=== PATIENT | male | born 1965 ===

== ENCOUNTER 2024-11-25 13:28 | Outpatient (AMB) | payer BC, SELFPAY ==
--- OUTSIDE RECORDS SUMMARY | 2024-11-25 14:47 | XMS_ITS | Clinical Summary ---
Author Organization [address] [place] [address] [place] [phone] Phone Care Team Providers Care Boat Joiner Name Role Phone Nabil Blanco MD Primary Care Provider [phone] Allergies Active Allergy Reactions Criticality Noted Date Comments Ragweed 06/08/2006 Medications multivit-min/fe rrous fumarate (MULTI VITAMIN ORAL) Take 1 Tablet by mouth daily. Active UNABLE TO FIND ALLERGY MONTHLY INJECTION, HISTORIC None Entered Active metoprolol succinate (TOPROL-XL) 50 mg 24 hr tablet Take 1 tablet (50 mg total) by mouth 1 (one) time each day. Do not crush or chew. 90 each 1 08/27/2024 Active Active Problems Problem Noted Date Diagnosed Date Class 3 severe obesity due t o excess calories with serious comorbidity and body mass index (BMI) of 40.0 to 44.9 in adult (CMS/[facility] V24, CMS/[facility] V28) 05/23/2024 VT (ventricular tachycardia) (CMS/[facility] V24, [facility] V28) 05/09/2023 Overview (02/19/2024): Last Assessment & Plan: The patient was noted to have multiple episodes of brief NSVT since January 2023 with the longest duration of 24 beats. He continues to remain asymptomatic. He denies any episodes of chest pain. At this point, we discussed arranging for him to undergo an exercise nuclear stress test to rule out ischemia as a cause. I will also have him complete a CMP and magnesium level to assess his electrolytes as a cause. We also discussed that I recommended he start metoprolol 25 mg orally daily. We discussed side effects. The patient also has a history of severe obstructive sleep apnea with sleep study completed July 2022. The patient has been attempting to contact sleep medicine of [facility] multiple times and unable to reach someone to assist him to arrange CPAP and titration study. He will reach out to sleep medicine services of [facility] to ensure the patient can obtain CPAP as soon as possible. JARED (obstructive sleep apnea) 08/18/2022 Overview (02/19/2024): 08/23 severe Aortic aneurysm, thoracic (CMS/[facility] V24) 03/07/20 Overview (10/22/2024): 04/25 4.1 02/23--4.2 cm 10/25 (cardiology) stable Aortic stenosis 03/07/2022 Overview (02/19/2024): Last Assessment & Plan: The patient was found to have a mild aortic valve stenosis on his echocardiogram done in January 2022. We will continue periodic echocardiographic monitoring. Snoring 03/07/2022 Overview (02/19/2024): Last Assessment & Plan: The patient has a history of significant nighttime snoring. Home-based sleep study did not show any sleep apnea. The report stated that if the clinical suspicion for sleep apnea remains high, to consider a facility based sleep study. The patient does have a strong clinical suspicion of underlying sleep apnea and therefore further testing is indicated. We will schedule the patient for a facility based sleep study. Obesity (BMI 35.0-39.9 without comorbidity) 07/2017 Overview (02/19/2024): Last Assessment & Plan: That the patient has significant obesity. His BMI was noted to be 39.98. The patient was counseled with regards to the importance of maintaining adequate diet in order to try to treat his obesity. If the patient does not lose weight with lifestyle modifications, then he should be considered for referral for bariatric surgery in the future. For now, I will order a lipid panel, CMP, and lipoprotein A level in order to determine if the patient would benefit from statin therapy Erectile dysfunction 05/11/2017 Allergic rhinitis 06/09/2006 Overview (02/19/2024): Allergy shots Colon polyp 06/09/2006 Overview (02/19/2024): Family hx colon ca (F 46) Colonoscopy neg --5yrs 09/07--colonoscopy neg--5yrs 09/15 Colonoscopy polyp---repeat 5 yrs 12/22. Large sigmoid polyp. Repeat 2 yrs. Nonspecific elevation of lev els of transaminase or lactic acid dehydrogenase (LDH) 06/09/2006 Overview (02/19/2024): 1999--Iron, ESR, hep screen, ceruloplasm normal--pt did not f/u 2006--normal spep, anti-sm ab, anti-microsomal. chol good--u/s shows fatty liver Last Assessment & Plan: The patient has been noted to have mildly elevated liver function test. On his laboratory test from 03/07/2022, his AST was 43 and his ALT was 80. On his follow-up laboratory test on 03/18/2022, his ALT was 81 and his AST was 40. Chart review indicates that the patient has a chronic history of mildly elevated AST and ALT levels. The patient was instructed to follow-up with his primary care physician to determine if any further testing (for example: liver ultrasound) might be needed. Encounters Date Type Department Care Team Description 11/18/2024 3:15 AM EDT Ancillary Procedure [facility] [address] [place] [address] 10/28/2024 Telephone [facility] [address] [facility] [address] [place] [address] Coeltte De Souza NP 10/16/2024 7:25 AM EDT Ancillary Procedure [facility] [address] [place] [address] 09/25/2024 7:00 AM EDT Ancillary Procedure [facility] [address] [place] [address] VT (ventricular tachycardia) ([facility] V24, [facility] V28); Ascending aorta dilation ([facility] V24) 09/23/2024 1:30 PM EDT Ancillary Procedure [facility] [address] [place] [address] from Last 3 Months Immunizations Name Administration Dates Next Due Influenza Quadravalent, MDCK , 0.5ml, preservative free (Flucelvax) 6mo and older 02/10/2023,01/03/2020,01/25/2019,2017 Influenza Quadrivalent, 0.5m l, preservative free (Fluarix; FluLaval; Fluzone) ages 6mo and older (Afluria) 3yo and older 03/24/2022,02/12/2021 Influenza trivalent, MDCK, 0 .5mL, preservative free (Flucelvax) 6mo and older 02/25/2024 Influenza trivalent, with preservative (Fluzone; Afluria) 6mo and older 04/20/2016,02/07/2012,12/19/2008 Tdap Tetanus diptheria acell ular pertussis (Boostrix; Adacel) 7yo and older 03/24/2022,04/20/2016,06/08/2006 Zoster recombinant (Shingrix ) 19yo and older 10/11/2021,04/18/2021 Surgical History Surgery Date Site/Laterality Comments COLONOSCOPY 09/07/06, [facility] PROCEDURE: [place] COLONOSCOPY STOMA DX INCLUDING COLLJ SPEC SPX; COMMENT: Normal: repeat in five years COLONOSCOPY 10/12/2014 PROCEDURE: [place] COLONOSCOPY STOMA W/RMVL JAMESON POLYP/OTH LES SNARE; COMMENT: normal; repeat in 5 yrs PACEMAKER IMPLANT PROCEDURE: HISTORICAL PACEMAKER VASECTOMY Medical History Medical History Date Comments Erectile dysfunction 05/11/2017 DX:Erectile dysfunction Allergic rhinitis 06/09/2006 DX:Allergic rh initis; COMMENT: Allergy shots Nonspecific elevation of lev els of transaminase or lactic acid dehydrogenase (LDH) 06/09/2006 DX:Nonspecific elevation of levels of transaminase or lactic acid dehydrogenase (LDH); COMMENT: 1999--Iron, ESR, hep screen, ceruloplasm normal--pt did not f/u 2006--normal spep, anti-sm ab, anti-microsomal. chol good--u/s shows fatty liver Colon polyp 06/09/2006 DX:Colon polyp; COMMENT: Family hx colon ca (F 46) Colonoscopy neg --5yrs 09/07--colonoscopy neg--5yrs 09/15 Colonoscopy polyp---repeat 5 yrs Pacemaker DX:Pacemaker; CO MMENT: av block Family History Medical History Relation Name Comments Coronary artery disease Brother 1 cabg No Known Problems Brother 2 Colon cancer Father 46, CAD 40's, D ied of CHD @ 75 Thyroid disease Mother No Known Problems Sister 1 No Known Problems Sister 2 No Known Problems Son Relation Name Status Comments Brother 1 Alive Brother 2 Alive Daughter Alive Father Mother Alive Sister 1 Alive Sister 2 Alive Son Alive Social History Tobacco Use Types Packs/Day Years Used Date Smoking Tobacco: Never Smokeless Tobacco: Never Alcohol Use Standard Drinks/Week Comments Yes 4 (1 standard drink = 0.6 oz pur e alcohol) beer/wine - 3 per week Housing Instability Answer Date Recorde d Are you worried that in the next 2 months you may not have stable housing? No 02/21/2024 Food Access & Nutrition Answer Date Rec orded Do you have access to a vari ety of food including fruits and vegetables? Yes 02/21/2024 Access to Healthcare Answer Date Record ed Within the last 3 months, ho w many times did you visit the emergency department for your medical care? 0 02/21/2024 Health Literacy Answer Date Recorded How often do you need to hav e someone help you when you read instructions, pamphlets, or other written material from your doctor or pharmacy? Never 02/21/2024 Caregiver: How often do you need to have someone help you when you read instructions, pamphlets, or other written material from your doctor or pharmacy? Not on file 02/21/2024 Financial Risk Answer Date Recorded How hard is it for you to pa y for the very basics like food, housing, medical care, and air conditioning / heating? Not very hard 02/21/2024 Transportation Answer Date Recorded Has the lack of transportati on kept you from meetings, work, or from getting things needed for daily living? No Has the lack of transportati on kept you from medical appointments or from getting medications? No 02/21/2024 Social Isolation Answer Date Recorded How often do you feel lonely or isolated from th ose around you? Never 02/21/2024 Food Risk Answer Date Recorded Within the past 12 months we worried whether our food would run out before we got money to buy more. Never true 02/21/2024 Within the past 12 months th e food we bought just didn't last and we didn't have money to get more. Never true 02/21/2024 Dependent Care Answer Date Recorded Do you need help finding or paying for care for your loved ones. For example, residential child care counselor or elderly care for an older adult? No 02/21/2024 Education Answer Date Recorded Do you think completing more education or training, like finishing a GED, going to college, or learning a trade, would be helpful for you? No 02/21/2024 Employment and Income Answer Date Recor ded During the last four weeks, have you been actively looking for work? No 02/21/2024 Living Situation Answer Date Recorded What is your living situation? 1 04/22/2023 Sex and Gender Information Value Date Recorded Sex Assigned at Male 02/16/2024 12:01 PM EST Legal Sex Male 1:48 AM EST Gender Identity Male 02/16/2024 12:01 PM EST Sexual Orientation Straight 02/16/2024 12 :01 PM EST Obstetrics History Last Filed Vital Signs Vital Sign Reading Time Taken Comments Blood Pressure 120/86 09/25/2024 7:07 AM EDT Pulse 73 07/15/2024 8:14 AM EDT Temperature 36.2 C (97.1 F) 02/28/2024 10:52 AM EST Respiratory Rate - - Oxygen Saturation 97% 07/15/2024 8:14 AM EDT Inhaled Oxygen Concentration - - Weight 147 kg (325 lb) 09/25/2024 7:07 AM EDT Height 185.4 cm (6' 1 ) 09/25/2024 7:07 AM EDT Body Mass Index 42.88 09/25/2024 7:07 AM EDT Plan of Treatment Upcoming Encounters Date Type Department Care Team (Late st Contact Info) Description 01/14/2025 11:20 AM EDT Office Visit [facility] [address] [place] [phone] Chucky Snow MD [address] [place] [address] [address] [place] [address] 05/08/2025 2:30 PM EST Ancillary Procedure [facility] [address] [place] [phone] Health Maintenance Due Date Last Done Comments Hepatitis B Vaccines (1 of 3 - 19+ 3-dose series) 1984 Pneumococcal Vaccine: 50+ Years (1 of 1 - PCV) 09/05/2015 HIV Screening 03/12/2022 Influenza Vaccine (#1) 2024 , 02/10/2023, 03/24/2022, Additional history exists Social Influencers of Health Screening 02/20/2025 02/21/2024 Colorectal Cancer Screening: Colonoscopy 08/07/2028 08/08/2023 Cholesterol Screening (Lipid Panel) 03/05/2029 03/05/2024, 02/13/2023 DTaP,Tdap,and Td Vaccines (4 - Td or Tdap) 03/24/2032 03/24/2022, 04/20/2016, 06/08/2006 RSV Immunization Adult Patients (1 - 1-dose 75+ series) 2040 Hepatitis C Screening Completed 08/11/1999 Zoster Vaccines Completed 10/11/2021, 04/18/2021 COVID-19 Vaccine Completed 02/25/2024, 06/2022, 12/08/2021, Additional history exists Depression Screening Completed 08/27/2024 HIB Vaccines Aged Out No longer eligi ble based on patient's age to complete this topic HPV Vaccines Aged Out No longer eligi ble based on patient's age to complete this topic Hepatitis A Vaccines Aged Out No long er eligible based on patient's age to complete this topic IPV Vaccines Aged Out No longer eligi ble based on patient's age to complete this topic MMR Vaccines Aged Out No longer eligi ble based on patient's age to complete this topic Meningococcal ACWY Vaccine Aged Out N o longer eligible based on patient's age to complete this topic Meningococcal B Vaccine Aged Out No l onger eligible based on patient's age to complete this topic RSV Immunization Patients Under 20 months Aged Out No longer eligible based on patient's age to complete this topic Varicella Vaccines Aged Out No longer eligible based on patient's age to complete this topic Medical Devices Implanted Type Area Purification Supervisor Device Identifier Shelf Expiration Date Model / Serial / Lot Medt-Card Dejah Xt Dr Renee [id number] Implanted: (Quantity not on file) Cardiac Pacemaker [employer] - CARDIAC RHYTH-CRDM DEJAH XT DR RENEE [id number] / [id number] / Medt-Card Dejah Xt Dr Renee [id number] Implanted: (Quantity not on file) Cardiac Pacemaker [employer] - CARDIAC RHYTH-CRDM DEJAH XT DR RENEE / [id number] / Procedures Procedure Name Priority Date/Time Associated Diagnosis Comments CARDIAC DEVICE CHECK- REMOTE- MURJ Routine 11/18/2024 3:12 AM EDT CARDIAC DEVICE CHECK- REMOTE- MURJ Routine 10/16/2024 7:20 AM EDT TRANSTHORACIC ECHOCARDIOGRAM (TTE) COMPLETE W/ CONTRAST Routine 09/25/2024 7:56 AM EDT VT (ventricular tachycardia) (CMS/H[facility] V24, CMS/[facility] V28) Ascending aorta dilation (CMS/[facility] V24) CARDIAC DEVICE CHECK- REMOTE- MURJ Routine 09/23/2024 1:25 PM EDT LIPID PANEL WITH REFLEX TO DIRECT LDL Routine 03/05/2024 8:58 AM EST Screening, lipid HM COLONOSCOPY Routine 08/08/2023 HEPATITIS C SCREENING Routine 08/11/1999 from Last 3 Months or Most Recently Relevant to Health Maintenance Results * Cardiac device check - Remote- MURJ (11/18/2024 3:12 AM EDT) Only the most recent of3 resultswithin the time period is included. Date Time Interrogation Session [id number] CV DEVICE CHECK Type Interrogation Session Remote CV DEVICE CHECK Implantable Pulse Generator Purification Supervisor MDT CV DEVICE CHECK Implantable Pulse Generator Type IPG CV DEVICE CHECK Implantable Pulse Generator Model Dejah XT DR MRI [id number] CV DEVICE CHECK Implantable Pulse Generator Serial Number [id number] CV DEVICE CHECK Implantable Pulse Generator Implant Date 20220401 CV DEVICE CHECK Battery Remaining Longevity 113.0 CV DEVICE CHECK Battery Voltage 3.010 CV D EVICE CHECK Battery RIGHT OF WAY MAN Trigger 2.625 CV DEVICE CHECK Battery Status Middle of Service CV DEVICE CHECK Rogelio Statistic RA Percent Paced 40.99 CV DEVICE CHECK Rogelio Statistic RV Percent Paced 99.99 CV DEVICE CHECK Atrial Tachy Statistic AT/AF [place] Percent 0.00 CV DEVICE CHECK Lead Channel Sensing Intrinsic Amplitude 3.375 CV DEVICE CHECK Lead Channel Setting Sensing Sensitivity 0.45 CV DEVICE CHECK Lead Channel Impedance Value 399 CV DEVICE CHECK Lead Channel Pacing Threshold Amplitude 0.625 CV DEVICE CHECK Lead Channel Pacing Threshold Pulse Width 0.4 CV DEVICE CHECK Lead Channel RA Pacing Threshold Date 2024-11-08 CV DEVICE CHECK Lead Channel Setting Pacing Amplitude 1.500 CV DEVICE CHECK Lead Channel Setting Pacing Pulse Width 0.4 CV DEVICE CHECK Lead Channel Sensing Intrinsic Amplitude 31.625 CV DEVICE CHECK Lead Channel Setting Sensing Sensitivity 2.00 CV DEVICE CHECK Lead Channel Impedance Value 418 CV DEVICE CHECK Lead Channel Pacing Threshold Amplitude 0.500 CV DEVICE CHECK Lead Channel Pacing Threshold Pulse Width 0.4 CV DEVICE CHECK Lead Channel RV Pacing Threshold Date 2024-11-08 CV DEVICE CHECK Lead Channel Setting Pacing Amplitude 2.000 CV DEVICE CHECK Lead Channel Setting Pacing Pulse Width 0.4 CV DEVICE CHECK Rogelio Setting Mode (NBG Code) DDDR CV DEVICE CHECK Rogelio Setting Lower Rate Limit 60 CV DEVICE CHECK Rogelio Setting AT Mode Switch Rate 200 CV DEVICE CHECK Rogelio Setting Maximum Tracking Rate 145 CV DEVICE CHECK Rogelio Setting Maximum Sensor Rate 130 CV DEVICE CHECK Rogelio Setting PAV Delay 180 CV DEVICE CHECK Rogelio Setting XOCHITL Delay 150 CV DEVICE CHECK Zone Setting Type Category AT/AF CV DEVICE CHECK Rate 200 CV DEVICE CHECK Therapies Some Rx Off CV DEVIC E CHECK Zone Setting Status Monitor CV DEVICE CHECK Zone ID 2 CV DEVICE CHECK Zone Setting Type Category VT CV DEVICE CHECK Rate 171 CV DEVICE CHECK Zone Setting Status ENABLED CV DEVICE CHECK Zone ID 6 CV DEVICE CHECK Date of Service 2024-11-09 CV DEVICE CHECK Anatomical Region Laterality Modality Device Interroga tion 11/08/2024 7:56 PM EDT Impressions 11/17/2024 7:42 PM EDT Normal Remote: No Events * Normal Device Function * Alerts or events: None * Battery: OK, 9.42 yrs * Sensing, impedance and thresholds reviewed * Programmed parameters reviewed * Presenting rhythm reviewed * Heart Rate Histograms reviewed * No significant changes noted Narrative Procedure Note Beny Robb MD - 11/18/2024 IMPRESSION: Normal Remote: No Events * Normal Device Function * Alerts or events: None * Battery: OK, 9.42 yrs * Sensing, impedance and thresholds reviewed * Programmed parameters reviewed * Presenting rhythm reviewed * Heart Rate Histograms reviewed * No significant changes noted Beny Robb MD CV IMPLANTABLE CARDIAC DEV ICE PROCEDURES Final Result * (ABNORMAL) TRANSTHORACIC ECHOCARDIOGRAM (TTE) COMPLETE W/ CONTRAST (09/25/2024 7:56 AM EDT) Left Atrium Minor [place] 5.9 cm CV PACS Left Atrium Major [place] 6.0 cm CV PACS LA Area Sys (A2C) 22 cm2 CV PACS LA Area Sys (A4C) 22 cm2 CV PACS LA Volume (BP) 66 mL CV PACS RA Area 18.1 cm2 CV PACS RA 2D Volume 51 mL CV PACS Aortic Sinus Valsalva 3.7 cm CV PACS Ascending Aorta 4.2 cm CV PACS IVSD 1.2(A) 0.6 - 1.0 cm CV PACS LVIDD 4.8 4.2 - 5.8 cm CV PACS LVIDS 3.5 2.5 - 4.0 cm CV PACS LVOT Diameter 2.2 cm CV PACS LVPWD 1.2(A) 0.6 - 1.0 cm CV PACS MV E' Tissue Velocity Lateral 9 cm/s CV PACS MV E' Tissue Velocity Septal 8 cm/s CV PACS LVOT Area 3.8 cm2 CV PACS MV Deceleration [place] 3.1 m/s2 CV PACS E Wave Deceleration Time 201 119 - 242 ms CV PACS MV PHT 58 ms CV PACS MV Peak A Sylvester 0.80 m/s CV PACS MV Peak E Syl[place] 0.60 m/s CV PACS MV Area PHT 3.7 cm2 CV PACS RV Diastolic Basal Dimension 4.5(A) 2.5 - 4.1 cm CV PACS RV S' 11 cm/s CV PACS TAPSE 21 mm CV PACS TR Peak Velocity 2.40 m/s CV PACS TR Peak Gradient 22 mmHg CV PACS E/E' Ratio Septal 8 CV PACS E/E' Ratio Averaged 7 CV PACS Relative Wall Thickness ratio 0.50(A) 0.24 - 0.42 CV PACS FS 27 % CV PACS LV Mass 2D 224(A) 96 - 200 g CV PACS Ascending Aorta Index 1.59 cm/m2 CV PACS RA 2D Volume Index 19 18 - 32 mL/m2 CV PACS LVIDD Index 1.82 cm/m2 CV PACS LVIDS Index 1.33 cm/m2 CV PACS E/A Ratio 0.8 0.8 - 2.0 CV PACS E/E' Ratio Lateral 7 CV PACS LA Volume Index (BP) 23 mL/m2 CV PACS LV Mass Index 2D 83 50 - 102 g/m2 CV PACS BSA 2.76 m2 CV PACS Right Ventricular Peak Systolic Pressure 26 mmHg CV PACS Est. RA Pressure 3 mmHg CV PACS RV Free Wall Peak S' 11 cm/s CV PACS RA Major [place] 5.1 cm CV PACS RA Major [place] Index 1.9(A) 2.1 - 2.7 cm/m2 CV PACS Anatomical Region Laterality Modality Ultrasound Narrative 10/21/2024 9:53 AM EDT Left ventricle cavity size is normal. There is mild hypertrophy. Systolic function is mildly decreased with an ejection fraction of ~50%. Mild global LV hypokinesis is present. There is Grade I (mild) diastolic dysfunction. Right ventricle is enlarged. Right ventricular systolic function is normal. The atria are normal in size. No hemodynamically significant valve disease. The ascending aorta is dilated (4.2 cm). Compared to 2022, the aorta appears similar in size. LV function is slightly less vigorous. Left Ventricle Left ventricle cavity size is normal. There is mild hypertrophy. Systolic function is mildly decreased with an ejection fraction of ~50%. Mild global LV hypokinesis is present. There is Grade I (mild) diastolic dysfunction. Right Ventricle Right ventricle cavity is dilated. Systolic function is normal. Left Atrium Left atrium cavity size is normal. Right Atrium Right atrium cavity is normal. IVC/SVC Inferior vena cava structure is normal. RA pressures is estimated to be 3 mmHg (IVC diameter <21 mm and decreases >50% during inspiration). Mitral Valve The leaflets are mildly thickened. There is mild regurgitation. There is no evidence of mitral valve stenosis. Tricuspid Valve The leaflets exhibit normal excursion. There is trace regurgitation. The RVSP is estimated at 26 mmHg. Aortic Valve The aortic valve is trileaflet. There is trace regurgitation. There is no evidence of aortic valve stenosis. Pulmonic Valve Visualized portions of the pulmonic valve appear normal. There is no pulmonic valve regurgitation. Ascending Aorta The Sinus of Valsalva is normal. The ascending aorta is (4.2 cm). Pericardium There is no pericardial effusion. Study Details Overall the study quality was technically difficult. Definity contrast was given to enhance imaging. Study was difficult due to: poor endocardial visualization. us Colette De Souza NP CV ECHO PROCEDURES Final Resul t * Lipid panel with reflex to direct LDL (03/05/2024 8:58 AM EST) Cholesterol 150 0 - 200 mg/dL LAB CHEMISTRY METHOD 03/05/2024 12:42 PM [facility] Triglycerides 98 0 - 150 mg/dL LAB CHEMISTRY METHOD 03/05/2024 12:42 PM EST [facility] HDL 54 >=40 mg/dL LAB CHEMISTRY METHOD 03/05/2024 12:42 PM [facility] LDL Calculated 76 0 - 100 mg/dL LAB CHEMISTRY METHOD 03/05/2024 12:42 PM [facility] VLDL Cholesterol Santiago 19.6 mg/dL LAB CHEMISTRY METHOD 03/05/2024 12:42 PM [facility] Non HDL Chol. (LDL+VLDL) 96 <145 mg/dL LAB CHEMISTRY METHOD 03/05/2024 12:42 PM [facility] Chol/HDL Ratio 2.8 0.0 - 4.4 LAB CHEMISTRY METHOD 03/05/2024 12:42 PM EST [facility] Blood Venous blood specimen / Unknown Venipuncture / Unknown 03/05/2024 8:58 AM EST 03/05/2024 8:58 AM EST [facility] LAB BLOOD ORDERABLES Final Res ult [facility] [address] [place] [address], [place] [phone] * Colonoscopy (08/08/2023) Colonoscopy Abstracted, no interpretation Anatomical Region Laterality Modality Other Historical Provider HEALTH MAINTENANCE Final Result * Hepatitis C Screening (08/11/1999) Hepatitis C Screening Abstracted Historical Provider HEALTH MAINTENANCE Final Result from Last 3 Months or Most Recently Relevant to Health Maintenance Insurance [facility] Care Teams Boat Joiner Relationship Specialty Start Date End Date Nabil Blanco MD [address] [place] [address] PCP - General 07/05/99
== END 2024-11-26 11:58 | disposition home or self-care (01) ==
LOC: HO.HMGAL 13:28
PROVIDERS: Visit Provider Registered Nurse Emergency
DX: J30.89 Other allergic rhinitis (principal)
CPT/HCPCS: 95117; 95165

== ENCOUNTER 2024-12-09 10:00 | Outpatient (AMB) | payer BC, SELFPAY ==
--- OUTSIDE RECORDS SUMMARY | 2024-12-09 11:45 | XMS_ITS | Clinical Summary ---
Author Organization [address] [place] [address] [place] [phone] Phone Care Team Providers Care Chief Quality Officer Name Role Phone Nabil Blanco MD Primary Care Provider [phone] Allergies Active Allergy Reactions Criticality Noted Date [...] (BMI) of 40.0 to 44.9 in adult (CMS/[facility] V24, CMS/[facility] V28) 05/23/2024 VT (ventricular tachycardia) (CMS/[facility] V24, CMS/[facility] V28) 05/09/2023 Overview (02/19/2024): [...] been attempting to contact sleep medicine of [facility] multiple times and unable to reach someone to assist him to arrange CPAP and titration study. He will reach out to sleep medicine services of [facility] to ensure the patient can obtain CPAP as soon as possible. JARED (obstructive sleep apnea) 08/18/2022 Overview (02/19/2024): 08/23 severe Aortic aneurysm, thoracic (CMS/[facility] V24) 03/07/20 Overview (10/22/2024): 04/25 4.1 02/23--4.2 [...] Description 11/18/2024 3:15 AM EDT Ancillary Procedure [facility] - [address] [place] [address] 10/28/2024 Telephone [facility] - [facility] [address] [facility] [address] [place] [address] Colette De Souza NP 10/16/2024 7:25 AM EDT Ancillary Procedure [facility] - [address] [place] [address] 09/25/2024 7:00 AM EDT Ancillary Procedure [facility] - [address] [place] [address] VT (ventricular tachycardia) ([facility] V24, [facility] V28); Ascending aorta dilation ([facility] V24) 09/23/2024 1:30 PM EDT Ancillary Procedure [facility] - [address] [place] [address] from Last 3 Months Immunizations [...] History Surgery Date Site/Laterality Comments COLONOSCOPY 09/07/06, [facility] PROCEDURE: [place] COLONOSCOPY STOMA DX INCLUDING COLLJ SPEC SPX; COMMENT: Normal: repeat in five years COLONOSCOPY 10/12/2014 PROCEDURE: [place] COLONOSCOPY STOMA W/RMVL JAMESON POLYP/OTH LES SNARE; [...] care for your loved ones. For example, child development director or elderly care for an older adult? [...] Description 01/14/2025 11:20 AM EDT Office Visit [facility] [address] [place] [address] Chucky Snow MD [address] [place] [address] [address] [place] [phone] 05/08/2025 2:30 PM EST Ancillary Procedure [facility] - [address] [place] [phone] Health Maintenance Due Date Last Done Comments [...] this topic Medical Devices Implanted Type Area Adjunct Faculty Instructor Device Identifier Shelf Expiration Date Model / Serial / Lot Medt-Card Mcfall Xt Dr Renee [id number] Implanted: (Quantity not on file) Cardiac Pacemaker [employer] - CARDIAC RHYTH-CRDM DEJAH XT DR RENEE [id number] / [id number] / Medt-Card Mcfall Xt Dr Renee [id number] Implanted: (Quantity not on file) Cardiac Pacemaker [employer] - CARDIAC RHYTH-CRDM DEJAH XT DR RENEE / [id number] / Procedures Procedure Name Priority Date/Time Associated [...] period is included. Date Time Interrogation Session [id number] CV DEVICE CHECK Type Interrogation Session Remote CV DEVICE CHECK Implantable Pulse Generator Adjunct Faculty Instructor MDT CV DEVICE CHECK Implantable Pulse Generator Type IPG CV DEVICE CHECK Implantable Pulse Generator Model Mcfall XT DR MRI [id number] CV DEVICE CHECK Implantable Pulse Generator Serial Number [id number] CV DEVICE CHECK Implantable Pulse Generator Implant Date 20220401 CV DEVICE CHECK Battery Remaining Longevity 113.0 CV DEVICE CHECK Battery Voltage 3.010 CV D EVICE CHECK Battery INJECTION MOLD TOOLING TECHNICIAN Trigger 2.625 CV DEVICE CHECK Battery Status Middle of Service CV DEVICE CHECK Rogelio Statistic RA Percent Paced 40.99 CV DEVICE CHECK Rogelio Statistic RV Percent Paced 99.99 CV DEVICE CHECK Atrial Tachy Statistic AT/AF [place] Percent 0.00 CV DEVICE CHECK Lead Channel [...] reviewed * No significant changes noted Beny oRbb MD CV IMPLANTABLE CARDIAC DEV ICE PROCEDURES Final Result * (ABNORMAL) TRANSTHORACIC ECHOCARDIOGRAM (TTE) COMPLETE W/ CONTRAST (09/25/2024 7:56 AM EDT) Left Atrium Minor [place] 5.9 cm CV PACS Left Atrium Major [place] 6.0 cm CV PACS LA Area Sys [...] Area 3.8 cm2 CV PACS MV Deceleration [place] 3.1 m/s2 CV PACS E Wave Deceleration [...] S' 11 cm/s CV PACS RA Major [place] 5.1 cm CV PACS RA Major [place] Index 1.9(A) 2.1 - 2.7 cm/m2 CV [...] mg/dL LAB CHEMISTRY METHOD 03/05/2024 12:42 PM [facility] Triglycerides 98 0 - 150 mg/dL LAB CHEMISTRY METHOD 03/05/2024 12:42 PM [facility] HDL 54 >=40 mg/dL LAB CHEMISTRY METHOD 03/05/2024 12:42 PM [facility] LDL Calculated 76 0 - 100 mg/dL LAB CHEMISTRY METHOD 03/05/2024 12:42 PM [facility] VLDL Cholesterol Santiago 19.6 mg/dL LAB CHEMISTRY METHOD 03/05/2024 12:42 PM [facility] Non HDL Chol. (LDL+VLDL) 96 <145 mg/dL LAB CHEMISTRY METHOD 03/05/2024 12:42 PM [facility] Chol/HDL Ratio 2.8 0.0 - 4.4 LAB CHEMISTRY METHOD 03/05/2024 12:42 PM EST [facility] Blood Venous blood specimen / Unknown Venipuncture / Unknown 03/05/2024 8:58 AM EST 03/05/2024 8:58 AM EST Rodo AGUILAR LAB BLOOD ORDERABLES Final Res ult [facility] [address] [place] [address], * Colonoscopy (08/08/2023) Colonoscopy Abstracted, no interpretation Anatomical Region Laterality Modality Other Historical Provider HEALTH MAINTENANCE Final Result * Hepatitis C Screening (08/11/1999) Pathologist [facility] Hepatitis C Screening Abstracted Historical Provider HEALTH MAINTENANCE Final Result from Last 3 Months or Most Recently Relevant to Health Maintenance Insurance [facility] ([facility]) Care Teams Chief Quality Officer Relationship Specialty Start Date End Date Nabil Blanco MD [address] [place], [place] PCP - General 07/05/99
== END 2024-12-09 11:24 | disposition home or self-care (01) ==
LOC: HO.HMGAL 10:00
PROVIDERS: Visit Provider Registered Nurse Emergency
DX: J30.89 Other allergic rhinitis (principal)
CPT/HCPCS: 95117; 95165

== ENCOUNTER 2024-12-25 14:01 | Outpatient (AMB) | payer OTHER, SELFPAY ==
--- OUTSIDE RECORDS SUMMARY | 2024-12-25 16:30 | XMS_ITS | Encounter Summary ---
Author Organization [facility] [place] [address] Care Team Providers Care Field Rep Name Role Phone Nabil Blanco MD Primary Care Provider [phone] Reason for Visit * Reason Onset Date Comments Hospital Follow-up 12/24/2024 Encounter Details Date Type Department Care Team ([facility] Contact Info) Description 12/24/2024 Telephone Adult Medicine [facility] [address] [place] [phone] Nabil Blanco MD [address] [place] [address] Social History Tobacco Use Types Packs/Day Years [...] for your loved ones. For example, child life therapist or elderly care for an older adult? [...] Orientation Straight 02/16/2024 12 :01 PM EST documented as of this encounter Progress Notes * Rosemarie Moralez - 12/24/2024 10:33 AM EDT Hospital/ER follow up appointment needed [facility] Was this only an ER visit or was the patient admitted to the hospital? Admitted to the hospital/kept overnight Date of visit if ER visit only: n/a If patient was admitted what was the date of discharge? 12/23/24 Reason/diagnosis for visit or stay: vertigo and dizziness When was the patient told to follow up? Within 1 week Was visit or stay related to an injury? If yes, what was the date of injury (DOI)? No If yes, was the injury due to: Not 3rd green party related documented in this encounter Plan of Treatment Upcoming Encounters Date Type Department Care Team (Late st Contact Info) Description 01/02/2025 11:00 AM EDT Office Visit Adult Medicine - [place] [address] [place] [address] Nabil Blanco MD [address] [place] [address] 01/14/2025 11:20 AM EDT Office Visit [facility] Associates [facility] [address] [place] [phone] Chucky Snow MD [address] [place] [address] [address] [place] [address] 05/08/2025 2:30 PM EST Ancillary Procedure [facility] [address] [facility] [address] [place] [address] documented as of this encounter Visit Diagnoses Not on filedocumented in this encounter Additional Health Concerns Assessment Noted Time PHQ-9 Depression Total Score: 0 08/28/19 10:16 AM EDT documented as of this encounter Care Teams Field Rep Relationship Specialty Start Date End Date Nabil Blanco MD [address] [place] [address] PCP - General 07/05/99 documented as of this encounter
--- OUTSIDE RECORDS SUMMARY | 2024-12-25 16:30 | XMS_ITS | Encounter Summary ---
Author Organization [facility] [place] [address] Care Team Providers Care Marine Mechanic Name Role Phone Nabil Blanco MD Primary Care Provider [phone] Encounter Details Date Type Department Care Team (Late st Contact Info) Description 12/25/2024 Telephone Adult Medicine [place] [address] [place] [phone] Alec Marrero, RN Social History Tobacco Use Types Packs/Day Years [...] for your loved ones. For example, child and family services specialist or elderly care for an older adult? [...] as of this encounter Progress Notes * Alec Marrero RN - 12/25/2024 2:54 PM EDT Appointment scheduled * Alec Marrero RN - 12/25/2024 2:52 PM EDT LUIS CARLOS Devi call completed with patient. Discharged from [facility] on 12/23/2024 for Vertigo Can you please call to schedule a TCM appointment documented in this encounter Plan of Treatment Upcoming Encounters Date Type Department Care Team (Late st Contact Info) Description 01/02/2025 11:00 AM EDT Office Visit Adult Medicine - [place] [address] [place] [address] Nabil Blanco MD [address] [place] [address] 01/14/2025 11:20 AM EDT Office Visit [facility]iology [facility] [address] [place] [address] Chucky Snow MD [address] [place] [address] [address] [place] [phone] 05/08/2025 2:30 PM EST Ancillary Procedure [facility] [address] [place] [phone] documented as of this encounter Visit Diagnoses Not on filedocumented in this encounter Additional Health Concerns Assessment Noted Time PHQ-9 Depression Total Score: 0 08/28/19 25 10:16 AM EDT documented as of this encounter Care Teams Marine Mechanic Relationship Specialty Start Date End Date Nabil Blanco MD [address] [place] [address] PCP - General 07/05/99 documented as of this encounter
--- OUTSIDE RECORDS SUMMARY | 2024-12-25 16:30 | XMS_ITS | Clinical Summary ---
Author Organization [address] [place] [address] [place] [address] Phone Care Team Providers Care Well Digger Name Role Phone Nabil Blanco MD Primary Care Provider [phone] Allergies Active Allergy Reactions Criticality Noted Date [...] (BMI) of 40.0 to 44.9 in adult (CMS/[facility] V24, CMS/[facility] V28) 05/23/2024 VT (ventricular tachycardia) (CMS/[facility] V24, CMS/H [facility] V28) 05/09/2023 [...] been attempting to contact sleep medicine of [facility] multiple times and unable to reach someone to assist him to arrange CPAP and titration study. He will reach out to sleep medicine services of [facility] to ensure the patient can obtain CPAP as soon as possible. JARED (obstructive sleep apnea) 08/18/2022 Overview (02/19/2024): 08/23 severe Aortic aneurysm, thoracic (CMS/[facility] V24) 03/07/20 Overview (10/22/2024): 04/25 [...] Encounters Date Type Department Care Team Description 12/25/2024 Telephone Adult Medicine - [place] [address] [place] [address] Alec Marrero RN 12/24/2024 Telephone Adult Medicine - [place] [address] [place] [address] Nabil Blanco MD 12/20/2024 Telephone [facility] Cardiology [address] [place] [phone] Chucky Snow MD 12/12/2024 5:10 AM EDT Ancillary Procedure [facility] - [address] [place] [address] 11/18/2024 3:15 AM EDT Ancillary Procedure [facility] Cardiology [facility] - [address] [place] [address] 10/28/2024 Telephone [facility] Cardiology [address] [place] [address] Colette De Souza NP 10/16/2024 7:25 AM EDT Ancillary Procedure [facility] - [address] [place] [address] 09/25/2024 7:00 AM EDT Ancillary Procedure [facility] - [address] [place] [address] VT (ventricular tachycardia) (CMS/HCC V24, CMS/HCC V28); Ascending aorta dilation (CMS/HCC V24) from Last 3 Months Immunizations Name Administration [...] History Surgery Date Site/Laterality Comments COLONOSCOPY 09/07/06, [facility] PROCEDURE: [place] COLONOSCOPY STOMA DX INCLUDING COLLJ SPEC SPX; COMMENT: Normal: repeat in five years COLONOSCOPY 10/12/2014 PROCEDURE: [place] COLONOSCOPY STOMA W/RMVL JAMESON POLYP/OTH LES SNARE; [...] care for your loved ones. For example, director of early childhood education or elderly care for an older adult? [...] AM EDT Office Visit Adult Medicine - [place] [address] [place] [address] Nabil Blanco MD [address] [place] [address] 01/14/2025 11:20 AM EDT Office Visit [facility] - [facility] [address] [place] [phone] Kianna-Chucky Jung MD [address] [place] [address] [address] [place] [phone] 05/08/2025 2:30 PM EST Ancillary Procedure [facility] - [facility] [address] [facility] [address] [place] [address] Health Maintenance Due Date Last Done Comments [...] this topic Medical Devices Implanted Type Area Knuckle Strap Sewer Device Identifier Shelf Expiration Date Model / Serial / Lot Medt-Card [place] Xt Dr Renee [id number] Implanted: (Quantity not on file) Cardiac Pacemaker [employer] - CARDIAC RHYTH-CRDM DEJAH XT DR RENEE [id number] / [id number] / Medt-Card [place] Xt Dr Renee [id number] Implanted: (Quantity not on file) Cardiac Pacemaker [employer] - CARDIAC RHYTH-CRDM DEJAH XT DR RENEE / [id number] / Procedures Procedure Name Priority Date/Time Associated Diagnosis Comments CARDIAC DEVICE CHECK- REMOTE- MURJ Routine 12/12/2024 5:09 AM EDT CARDIAC DEVICE CHECK- REMOTE- MURJ Routine 11/18/2024 3:12 AM EDT CARDIAC DEVICE CHECK- REMOTE- MURJ Routine 10/16/2024 7:20 AM EDT TRANSTHORACIC ECHOCARDIOGRAM (TTE) COMPLETE W/ CONTRAST Routine 09/25/2024 7:56 AM EDT VT (ventricular tachycardia) (CMS/HCC V24, CMS/HCC V28) Ascending aorta dilation (CMS/HCC V24) LIPID PANEL WITH REFLEX TO DIRECT LDL Routine 03/05/2024 8:58 AM EST Screening, lipid HM COLONOSCOPY Routine 08/08/2023 HM HEPATITIS C SCREENING Routine 08/11/1999 from Last 3 Months or Most Recently Relevant to Health Maintenance Results * Cardiac device check - Remote- MURJ (12/12/2024 5:09 AM EDT) Only the most recent of3 resultswithin the time period is included. Date Time Interrogation Session [id number] CV DEVICE CHECK Type Interrogation Session Remote CV DEVICE CHECK Implantable Pulse Generator Knuckle Strap Sewer MDT CV DEVICE CHECK Implantable Pulse Generator Type IPG CV DEVICE CHECK Implantable Pulse Generator Model Dejah XT DR MRI [id number] CV DEVICE CHECK Implantable Pulse Generator Serial Number [id number] CV DEVICE CHECK Implantable Pulse Generator Implant Date 20220401 CV DEVICE CHECK Battery Remaining Longevity 111.0 CV DEVICE CHECK Battery Voltage 3.010 CV D EVICE CHECK Battery ASSEMBLY TECHNICIAN Trigger 2.625 CV DEVICE CHECK Battery Status Middle of Service CV DEVICE CHECK Rogelio Statistic RA Percent Paced 38.52 CV DEVICE CHECK Rogelio Statistic RV Percent Paced 99.99 CV DEVICE CHECK Atrial Tachy Statistic AT/AF [place] Percent 0.00 CV DEVICE CHECK Lead Channel Sensing Intrinsic Amplitude 3.000 CV DEVICE CHECK Lead Channel Setting Sensing Sensitivity 0.45 CV DEVICE CHECK Lead Channel Impedance Value 399 CV DEVICE CHECK Lead Channel Pacing Threshold Amplitude 0.625 CV DEVICE CHECK Lead Channel Pacing Threshold Pulse Width 0.4 CV DEVICE CHECK Lead Channel RA Pacing Threshold Date 2024-12-08 CV DEVICE CHECK Lead Channel Setting Pacing [...] CHECK Lead Channel RV Pacing Threshold Date 2024-12-08 CV DEVICE CHECK Lead Channel Setting Pacing [...] 6 CV DEVICE CHECK Date of Service 2025-02-08 CV DEVICE CHECK Anatomical Region Laterality Modality Device Interroga tion 12/08/2024 11:3 5 PM EDT Impressions 12/11/2024 8:29 PM EDT Normal Remote: No Events * Normal Device Function * Alerts or events: None * Battery: OK, 9.25 yrs * Sensing, impedance and thresholds reviewed * Programmed parameters reviewed * Presenting rhythm reviewed * Heart Rate Histograms reviewed * No significant changes noted Narrative Procedure Note Beny Robb MD - 12/12/2024 IMPRESSION: Normal Remote: No Events * Normal Device Function * Alerts or events: None * Battery: OK, 9.25 yrs * Sensing, impedance and thresholds reviewed * Programmed parameters reviewed * Presenting rhythm reviewed * Heart Rate Histograms reviewed * No significant changes noted us Beny Robb MD CV IMPLANTABLE CARDIAC DEV ICE PROCEDURES Final Result * (ABNORMAL) TRANSTHORACIC ECHOCARDIOGRAM (TTE) COMPLETE W/ CONTRAST (09/25/2024 7:56 AM EDT) Left Atrium Minor [place] 5.9 cm CV PACS Left Atrium Major [place] 6.0 cm CV PACS LA Area Sys [...] Area 3.8 cm2 CV PACS MV Deceleration [place] 3.1 m/s2 CV PACS E Wave Deceleration [...] S' 11 cm/s CV PACS RA Major [place] 5.1 cm CV PACS RA Major [place] Index 1.9(A) 2.1 - 2.7 cm/m2 CV [...] to direct LDL (03/05/2024 8:58 AM EST) [facility] Cholesterol 150 0 - 200 mg/dL LAB CHEMISTRY METHOD 03/05/2024 12:42 PM [facility] Triglycerides 98 0 - 150 mg/dL LAB CHEMISTRY METHOD 03/05/2024 12:42 PM [facility] HDL 54 >=40 mg/dL LAB CHEMISTRY METHOD 03/05/2024 12:42 PM [facility] LDL Calculated 76 0 - 100 mg/dL LAB CHEMISTRY METHOD 03/05/2024 12:42 PM [facility] VLDL Cholesterol Santiago 19.6 mg/dL LAB CHEMISTRY METHOD 03/05/2024 12:42 PM [facility] Non HDL Chol. (LDL+VLDL) 96 <145 mg/dL LAB CHEMISTRY METHOD 03/05/2024 12:42 PM [facility] Chol/HDL Ratio 2.8 0.0 - 4.4 LAB CHEMISTRY METHOD 03/05/2024 12:42 PM [facility] Blood Venous blood specimen / Unknown Venipuncture / Unknown 03/05/2024 8:58 AM EST 03/05/2024 8:58 AM EST Rodo AGUILAR LAB BLOOD ORDERABLES Final Res ult [facility] [address] [place] [address], * Colonoscopy (08/08/2023) [facility] Colonoscopy Abstracted, no interpretation Anatomical Region Laterality Modality Other Historical Provider HEALTH MAINTENANCE Final Result * Hepatitis C Screening (08/11/1999) [facility] Hepatitis C Screening Abstracted Historical Provider HEALTH MAINTENANCE Final Result from Last 3 Months or Most Recently Relevant to Health Maintenance Insurance Care Teams Well Digger Relationship Specialty Start Date End Date Nabil Blanco MD [address] [place] [address] PCP - General 07/05/99
--- OUTSIDE RECORDS SUMMARY | 2024-12-25 16:30 | XMS_ITS | Encounter Summary ---
Author Organization [facility] [place] [address] Care Team Providers Care Carpentry Instructor Name Role Phone Nabil Blanco MD Primary Care Provider [phone] Encounter Details Date Type Department Care Team (Late st Contact Info) Description 12/20/2024 Telephone [facility]iology Associates [facility] [address] [place] [address] [place] [address] KiannaChucky Jung MD [address] [place] [address] [address] [place] [address] Social History Tobacco Use Types Packs/Day Years [...] Record ed Within the last 3 months, neema thompson many times did you visit the emergency [...] for your loved ones. For example, child care giver or elderly care for an older adult? [...] as of this encounter Progress Notes * Kori Butterfield MA - 12/20/2024 1:44 PM EDT Left message to verify if he had labs ordered in August. Nothing resulted on [facility]. Has an [place] appt with Dr MCKNIGHT 25 We can mail lab orders or fax to lab of choice. * Jennifer Ojeda - 12/20/2024 1:25 PM EDT Patient would like his prescription metoprolol succinate (TOPROL-XL) 50mg 1 tablet per day 90 day supply to go to [facility]. Best call back number is [phone] documented in this encounter Plan of Treatment Upcoming Encounters Date Type Department Care Team (Late st Contact Info) Description 01/02/2025 11:00 AM EDT Office Visit Adult Medicine - [place] [address] [place] [phone] Nabil Blanco MD [address] [place] [address] 01/14/2025 11:20 AM EDT Office Visit [facility] Cardiology [facility] [address] [place] [address] Chucky Snow MD [address] [place] [address] [address] [place] [phone] 05/08/2025 2:30 PM EST Ancillary Procedure [facility] [address] [facility] [address] [place] [address] documented as of this encounter Visit Diagnoses Not on filedocumented in this encounter Additional Health Concerns Assessment Noted Time PHQ-9 Depression Total Score: 0 08/28/19 25 10:16 AM EDT documented as of this encounter Care Teams Carpentry Instructor Relationship Specialty Start Date End Date Nabil Blanco MD [address] [place] [address] PCP - General 07/05/99 documented as of this encounter
--- OUTSIDE RECORDS SUMMARY | 2024-12-25 16:30 | XMS_ITS ---
Author Organization [address] [place] [address] [place] [phone] Phone Care Team Providers Care Rim Fire Charger Operator Name Role Phone Nabil Blanco MD Primary Care Provider [phone] Transitional Care Management Status:Ongoing (Active) Start date:12/23/2024 Enrollment date:12/24/2024 Enrollment reason:Identified using hospital discharge data Case Team Name Relationship Phone Gwen Hong LPN Care Manager(Responsible Staf f) [phone] Continued Care and Services Coordination
== END 2024-12-25 14:17 | disposition home or self-care (01) ==
LOC: HO.HMGAL 14:01
PROVIDERS: PCP Pediatrics; Visit Provider Registered Nurse Emergency
DX: J30.89 Other allergic rhinitis (principal)
CPT/HCPCS: 95117; 95165

== ENCOUNTER 2025-01-06 14:59 | Outpatient (AMB) | payer OTHER, SELFPAY ==
--- OUTSIDE RECORDS SUMMARY | 2025-01-02 11:00 | XMS_ITS | Encounter Summary ---
[facility] Organization [facility] [place] [address] Care Team Providers Care Telephone Service Representative Name Role Phone Nabil Blanco MD Primary Care Provider [phone] Reason for Visit * Reason Comments hospital f/u Encounter Details Date Type Department Care Team ([facility] st Contact Info) Description 01/02/2025 11:00 AM EDT Office Visit Adult Medicine [facility] [address] [place] [address] Nabil Blanco MD [address] [place] [address] Vertigo (Primary Dx) Social History Tobacco Use Types Packs/Day Years Used Date Smoking Tobacco: Never Smokeless Tobacco: Never Tobacco Cessation:Counseling Given: Not Answered Alcohol Use Standard Drinks/Week Comments Yes 4 [...] care for your loved ones. For example, exceptional children teacher assistant or elderly care for an older adult? [...] Date Recorded What is your living situation? Unrecognized valu e 02/21/2024 Sex and Gender Information Value Date Recorded Sex Assigned at Male 02/16/2024 12:01 PM EST Legal Sex Male 1:48 AM EST Gender Identity Male 02/16/2024 12:01 PM EST Sexual Orientation Straight 02/16/2024 12 :01 PM EST Travel History Travel Start Travel End [place] 12/16/2024 12/19/2024 documented as of this encounter Last Filed Vital Signs Vital Sign Reading Time Taken Comments Blood Pressure 118/78 01/02/2025 10:49 AM EDT Pulse 81 01/02/2025 10:49 AM EDT Temperature 36.7 C (98 F) 01/02/2025 10:49 AM EDT Respiratory Rate - - Oxygen Saturation - - Inhaled Oxygen Concentration - - Weight 149 kg (328 lb 6.4 oz) 01/02/2025 10:49 A M EDT Height 185.4 cm (6' 1 ) 01/02/2025 10:49 AM EDT Body Mass Index 43.33 01/02/2025 10:49 AM EDT documented in this encounter Progress Notes * Nabil Blanco MD - 01/02/2025 11:00 AM EDT CHIEF COMPLAINT: hospital f/u IDENTIFIER: Finn Munson is a 59 y.o. old male. HPI: Patient comes in for follow-up of recent hospitalization. He was scuba diving and on the ride home began having dizziness. States the room was spinning and was worse with movement. He was hospitalized overnight. CT angiogram was negative. Symptoms improved the next day and he was discharged home. Since then symptoms have completely resolved and have not recurred. ROS: GENERAL: Negative for malaise, significant weight loss and fever RESPIRATORY: No cough, wheezing or shortness of breath CARDIOVASCULAR: Negative for chest pain, leg swelling and palpitations GI: Negative for abdominal discomfort, changes in bowel habits, blood in stool or black stools : Negative for dysuria, frequency, and incontinence PAST MEDICAL HISTORY: Patient Active Problem List Diagnosis Date Noted Class 3 severe obesity due to excess calories with serious comorbidity and body mass index (BMI) of40.0 to 44.9 in adult ([facility] V24, [facility] V28) 05/23/2024 VT (ventricular tachycardia) ([facility] V24, [facility] V28) 05/09/2023 JARED (obstructive sleep apnea) 08/18/2022 Aortic aneurysm, thoracic ([facility] V24) 03/07/2022 Aortic stenosis 03/07/2022 Snoring 03/07/2022 Obesity (BMI 35.0-39.9 without comorbidity) 12/05/2017 Erectile dysfunction 05/11/2017 Allergic rhinitis 06/09/2006 Colon polyp 06/09/2006 Nonspecific elevation of levels of transaminase or lactic acid dehydrogenase (LDH) 06/09/2006 SOCIAL HISTORY: Social History Tobacco Use Smoking status: Never Smokeless tobacco: Never Substance Use Topics Alcohol use: Yes Alcohol/week: 4.0 standard drinks of alcohol Types: 2 Glasses of wine, 2 Cans of beer per week Comment: beer/wine - 3 per week FAMILY HISTORY: Family Status Relation Name Status Mother Alive, age 84y Father Sister Alive Sister Alive Brother Alive Brother Alive Daughter Alive Son Alive No partnership data on file Family History[1] ACTIVE MEDICATIONS: Medications Taking[2] ALLERGIES: Ragweed PHYSICAL EXAM: Blood pressure 118/78, pulse 81, temperature 36.7 ??C (98 ??F), temperature source Temporal, height1.854 m (73 ), weight 149 kg (328 lb 6.4 oz). Body mass index is 43.33 kg/m??. Plan is deferred until next visit APPEARANCE: Alert and in no acute distress EARS: External ears normal. Canals clear. TMs normal. MOUTH/THROAT: no erythema, lesions, or exudates NECK: Neck supple, no adenopathy, thyroid symmetric and of normal size HEART: RRR with normal S1 and S2, no murmurs, no gallops, no JVD appreciated LUNG: clear to auscultation bilaterally LABS: IMPRESSION: 1. Vertigo PLAN: Patient with vertigo which has resolved. Most likely had dislodging of otolith related to diving. Follow-up as needed. He was previously given prescription for GLP-1 medication for weight but insurance did not cover. He now has a new insurance. I recommended he set up a follow-up appointment to discuss treatment since he has not been seen in almost a year. No orders of the defined types were placed in this encounter. ADDITIONAL ORDERS: None Nabil Blanco MD on 01/03/2025 at 2:59 PM EDT [1] Family History Problem Relation Name Age of Onset Thyroid disease Mother Colon cancer Father 46, CAD 40's, of CHD @ 75 No Known Problems Sister No Known Problems Sister Coronary artery disease Brother cabg No Known Problems Brother No Known Problems Son [2] Outpatient Medications Marked as Taking for the 01/02/25 encounter (Office Visit) with Nabil Blanco MD Medication Sig Dispense Refill metoprolol succinate (TOPROL-XL) 50 mg 24 hr tablet Take 1 tablet (50 mg total) by mouth 1 (one) time each day. Do not crush or chew. 90 each 1 multivit-min/ferrous fumarate (MULTI VITAMIN ORAL) Take 1 Tablet by mouth daily. UNABLE TO FIND ALLERGY MONTHLY INJECTION, HISTORIC None Entered documented in this encounter Plan of Treatment Upcoming Encounters Date Type Department Care Team (Late st Contact Info) Description 01/14/2025 11:20 AM EDT Office Visit [facility] [address] [place] [phone] Kianna-Chucky Jung MD [address] [place] [address] [address] [place] [phone] 02/03/2025 8:30 AM EST Office Visit Adult Medicine [facility] [address] [place] [phone] Rodo Chandler PA [address] [place] [address] 05/08/2025 2:30 PM EST Ancillary Procedure [facility] Cardiology [facility] [address] [facility] [address] [place] [phone] documented as of this encounter Visit Diagnoses Diagnosis Vertigo- Primary Dizziness and giddiness Encounter for adjustment or management of cardiac device documented in this encounter Additional Health Concerns Assessment Noted Time PHQ-9 Depression Total Score: 0 08/28/19 25 10:16 AM EDT documented as of this encounter Care Teams Telephone Service Representative Relationship Specialty Start Date End Date Nabil Blanco MD [address] [place] [address] PCP - General 07/05/99 documented as of this encounter
--- OUTSIDE RECORDS SUMMARY | 2025-01-06 17:21 | XMS_ITS | Encounter Summary ---
Author Organization [facility] [place] [address] Care Team Providers Care Vaccine Manager Name Role Phone Nabil Blanco MD Primary Care Provider [phone] Reason for Visit * Reason Onset Date Comments Med Refill 01/06/2025 Metoprolol Encounter Details Date Type Department Care Team (Late st Contact Info) Description 01/06/2025 Telephone [facility] [address] [place] [address] Chucky Snow MD [address] [place] [address] [address] [place] [address] Social History Tobacco Use Types [...] your loved ones. For example, child care associate teacher or elderly care for an older adult? [...] EST Travel History Travel Start Travel End [place] 12/16/2024 12/19/2024 documented as of this encounter Ordered Prescriptions Prescription Sig Dispense Quantity Refills Last Filled Start Date End Date metoprolol succinate (TOPROL-XL) 50 mg 24 hr tablet Take 1 tablet (50 mg total) by mouth 1 (one) time each day. Do not crush or chew. 90 each 1 01/06/2025 documented in this encounter Progress Notes * Loli Roman RN - 01/06/2025 12:02 PM EDT [facility] 07/15/24, next 01/14/25 Dose increased 07/29/24 Metoprolol refills sent to [facility] * Andre Perdomo - 01/06/2025 11:22 AM EDT Patient is calling requesting refill on metoprolol 50mg, take one tab once a day. Patient would like medication sent to [facility] for 90 day supply. [facility] [place]. documented in this encounter Plan of Treatment Upcoming Encounters Date Type Department Care Team ([facility] st Contact Info) Description 01/14/2025 11:20 AM EDT Office Visit [facility] [address] [place] [address] Chucky Snow MD [address] [place] [address] [address] [place] [address] 02/03/2025 8:30 AM EST Office Visit Adult Medicine - [place] [address] [place] [address] Rodo Chandler PA [address] [place] [address] 05/08/2025 2:30 PM EST Ancillary Procedure [facility] Card[facility] [address] [facility] [address] [place] [address] documented as of this encounter Visit Diagnoses Not on filedocumented in this encounter Discontinued Medications Medication Sig Discontinue Reason Start Date End Da te metoprolol succinate (TOPROL-XL) 50 mg 24 hr tablet Take 1 tablet (50 mg total) by mouth 1 (one) time each day. Do not crush or chew. Reorder 08/27/2024 01/06/2025 documented as of this encounter Additional Health Concerns Assessment Noted Time PHQ-9 Depression Total Score: 0 08/28/19 25 10:16 AM EDT documented as of this encounter Care Teams Vaccine Manager Relationship Specialty Start Date End Date Nabil Blanco MD [address] [place] [address] PCP - General 07/05/99 documented as of this encounter
--- OUTSIDE RECORDS SUMMARY | 2025-01-06 17:21 | XMS_ITS | Encounter Summary ---
Author Organization [facility] [place] [address] Care Team Providers Care Director Global Strategic Publisher Sales Name Role Phone Nabil Blanco MD Primary Care Provider [phone] Reason for Visit * Reason Onset Date Comments Hospital Follow-up 12/24/2024 Encounter Details Date Type Department Care Team ([facility] Contact Info) Description 12/24/2024 Telephone Adult Medicine [facility] [address] [place] [phone] Nabil Blanco MD [address] [place] [address] Social History Tobacco Use Types Packs/Day Years [...] your loved ones. For example, child care cook or elderly care for an older adult? [...] EST Travel History Travel Start Travel End [place] 12/16/2024 12/19/2024 documented as of this encounter Progress Notes * Rosemarie Moralez - 12/24/2024 10:33 AM EDT Hospital/ER follow up appointment needed Hospital patient was treated at: [facility] [place] [place] Was this only an ER visit [...] was the injury due to: Not 3rd constitution party related documented in this encounter Plan of Treatment Upcoming Encounters Date Type Department Care Team (Late st Contact Info) Description 01/14/2025 11:20 AM EDT Office Visit [facility] [address] [place] [address] [address] [place] [phone] Chucky Snow MD [address] [place] [address] [address] [place] [address] 02/03/2025 8:30 AM EST Office Visit Adult Medicine - [place] [address] [place] [address] Rodo Chandler PA [address] [place] [address] 05/08/2025 2:30 PM EST Ancillary Procedure [facility] [address] [facility] [address] [place] [address] documented as of this encounter Visit Diagnoses Not on filedocumented in this encounter Additional Health Concerns Assessment Noted Time PHQ-9 Depression Total Score: 0 08/28/19 10:16 AM EDT documented as of this encounter Care Teams Director Global Strategic Publisher Sales Relationship Specialty Start Date End Date Nabil Blanco MD [address] [place] [address] PCP - General 07/05/99 documented as of this encounter
--- OUTSIDE RECORDS SUMMARY | 2025-01-06 17:21 | XMS_ITS | Clinical Summary ---
Author Organization [address] [place] [address] [place] [phone] Phone Care Team Providers Care Athletic Scout Name Role Phone Nabil Blanco MD Primary Care Provider [phone] Allergies Active Allergy Reactions Criticality Noted Date Comments Ragweed 06/08/2006 Medications multivit-min/fe rrous fumarate (MULTI VITAMIN ORAL) Take 1 Tablet by mouth daily. Active UNABLE TO FIND ALLERGY MONTHLY INJECTION, HISTORIC None Entered Active metoprolol succinate (TOPROL-XL) 50 mg 24 hr tablet Take 1 tablet (50 mg total) by mouth 1 (one) time each day. Do not crush or chew. 90 each 1 5 Active metoprolol succinate (TOPROL-XL) 50 mg 24 hr tablet Take 1 tablet (50 mg total) by mouth 1 (one) time each day. Do not crush or chew. 90 each 1 5 01/07/20 25 Discontinu ed(Reorder ) Active Problems Problem Noted Date Diagnosed Date Class 3 severe obesity due t o excess calories with serious comorbidity and body mass index (BMI) of 40.0 to 44.9 in adult (CMS/HCC V24, CMS[facility] V28) 05/23/2024 VT (ventricular tachycardia) (CMS/HCC V24, CMS/H CC V28) 05/09/2023 Overview (02/19/2024): [...] been attempting to contact sleep medicine of [facility] multiple times and unable to reach someone to assist him to arrange CPAP and titration study. He will reach out to sleep medicine services of [facility] to ensure the patient can obtain CPAP as soon as possible. JARED (obstructive sleep apnea) 08/18/2022 Overview (02/19/2024): 08/23 severe Aortic aneurysm, thoracic ([facility] V24) 03/07/20 Overview (10/22/2024): 04/25 4.1 02/23--4.2 [...] Encounters Date Type Department Care Team Description 01/06/2025 Telephone [facility] Associates [facility] [address] [place] [address] Chucky Snow MD 01/02/2025 11:00 AM EDT Office Visit Adult Medicine [facility] [address] [place] [address] Nabil Blanco MD Vertigo (Primary Dx) 12/25/2024 Telephone Adult Medicine - [place] [address] [place] [phone] Alec Marrero RN 12/24/2024 Telephone Adult Medicine - [place] [address] [place] [phone] Nabil Blanco MD 12/20/2024 Telephone [facility] [address] [facility] [address] [place] [address] Chucky Snow MD 12/12/2024 5:10 AM EDT Ancillary Procedure [facility] [address] [place] [address] 11/18/2024 3:15 AM EDT Ancillary Procedure [facility] [address] [place] [address] 10/28/2024 Telephone [facility] [address] [facility] [address] [place] [address] Colette De Souza NP 10/16/2024 7:25 AM EDT Ancillary Procedure [facility] [address] [place] [address] from Last 3 Months Immunizations Immunization Administration Dates Next Due Influenza Quadravalent, MDCK [...] History Surgery Date Site/Laterality Comments COLONOSCOPY 09/07/06, [facility] PROCEDURE: ME COLONOSCOPY STOMA DX INCLUDING COLLJ SPEC SPX; COMMENT: Normal: repeat in five years COLONOSCOPY 10/12/2014 PROCEDURE: ME COLONOSCOPY STOMA W/RMVL JAMESON POLYP/OTH LES SNARE; [...] care for your loved ones. For example, early childhood assistant or elderly care for an older [...] EST Travel History Travel Start Travel End [place] 12/16/2024 12/19/2024 Obstetrics History Last Filed Vital Signs Vital Sign Reading Time Taken Comments Blood Pressure 118/78 01/02/2025 10:49 AM EDT Pulse 81 01/02/2025 10:49 AM EDT Temperature 36.7 C (98 F) 01/02/2025 10:49 AM EDT Respiratory Rate - - Oxygen Saturation 97% 07/15/2024 8:14 AM EDT Inhaled Oxygen Concentration - - Weight 149 kg (328 lb 6.4 oz) 01/02/2025 10:49 A M EDT Height 185.4 cm (6' 1 ) 01/02/2025 10:49 AM EDT Body Mass Index 43.33 01/02/2025 10:49 AM EDT Plan of Treatment Upcoming Encounters Date Type Department Care Team (Late st Contact Info) Description 01/14/2025 11:20 AM EDT Office Visit [facility] - Medical [facility] Medical Center [address] [place] [phone] Chucky Snow MD [address] [place] [address] [address] [place] [address] 02/03/2025 8:30 AM EST Office Visit Adult Medicine - [place] [address] [place] [address] Rodo Chandler PA [address] [place] [address] 05/08/2025 2:30 PM EST Ancillary Procedure [facility] Cardiology [facility] [address] [facility] [address] [place] [phone] Health Maintenance Due Date Last Done Comments Hepatitis B Vaccines (1 of 3 - 19+ 3-dose series) 1984 Pneumococcal Vaccine: 50+ Years (1 of 1 - PCV) 09/05/2015 HIV Screening 03/12/2022 Social Influencers of Health Screening 02/20/2025 02/21/2024 Colorectal Cancer Screening: Colonoscopy 08/07/2028 08/08/2023 Cholesterol Screening (Lipid Panel) 03/05/2029 03/05/2024, 02/13/2023 DTaP,Tdap,and Td Vaccines (4 - Td or Tdap) 03/24/2032 03/24/2022, 04/20/2016, 06/08/2006 RSV Immunization Adult Patients (1 - 1-dose 75+ series) 2040 Hepatitis C Screening Completed 08/11/1999 Zoster Vaccines Completed 10/11/2021, 04/18/2021 Depression Screening Completed 08/27/2024 COVID-19 Vaccine Completed 12/26/2024, , 02/03/2023, Additional history exists Influenza Vaccine Completed 12/26/2024, , 02/10/2023, Additional history exists HIB Vaccines Aged Out No longer eligi [...] this topic Medical Devices Implanted Type Area Transit Operator Device Identifier Shelf Expiration Date Model / Serial / Lot Medt-Card Dejah Xt Dr Renee [id number] Implanted: (Quantity not on file) Cardiac Pacemaker [employer] - CARDIAC RHYTH-REGENCY MERIDIAN DEJAH XT DR RENEE [id number] / [id number] / Medt-Card Dejah Xt Dr Renee [id number] Implanted:12/ (Quantity not on file) Cardiac Pacemaker [employer] - CARDIAC RHYTH-CRDM DEJAHFARIBA RENEE / [id number] / Procedures Procedure Name Priority Date/Time Associated Diagnosis Comments CARDIAC DEVICE CHECK- REMOTE- MURJ Routine 12/12/2024 5:09 AM EDT CARDIAC DEVICE CHECK- REMOTE- MURJ Routine 11/18/2024 3:12 AM EDT CARDIAC DEVICE CHECK- REMOTE- MURJ Routine 10/16/2024 7:20 AM EDT LIPID PANEL WITH REFLEX TO DIRECT LDL Routine 03/05/2024 8:58 AM EST Screening, lipid HM COLONOSCOPY Routine 08/08/2023 HEPATITIS C SCREENING Routine 08/11/1999 from Last 3 Months or Most Recently Relevant to Health Maintenance Results * Cardiac device check - Remote- MURJ (12/12/2024 5:09 AM EDT) Only the most recent of3 resultswithin the time period is included. Date Time Interrogation Session [id number] CV DEVICE CHECK Type Interrogation Session Remote CV DEVICE CHECK Implantable Pulse Generator Transit Operator MDT CV DEVICE CHECK Implantable Pulse Generator Type IPG CV DEVICE CHECK Implantable Pulse Generator Model Grapeview XT DR RENEE [id number] CV DEVICE CHECK Implantable Pulse Generator Serial Number [id number] CV DEVICE CHECK Implantable Pulse Generator Implant Date 20220401 CV DEVICE CHECK Battery Remaining Longevity 111.0 CV DEVICE CHECK Battery Voltage 3.010 CV D EVICE CHECK Battery PRINT DEVELOPER Trigger 2.625 CV DEVICE CHECK Battery Status Middle of Service CV DEVICE CHECK Rogelio Statistic RA Percent Paced 38.52 CV DEVICE CHECK Rogelio Statistic RV Percent Paced 99.99 CV DEVICE CHECK Atrial Tachy Statistic AT/AF Hoffman Percent 0.00 CV DEVICE CHECK Lead Channel [...] CARDIAC DEV ICE PROCEDURES Final Result * Lipid panel with reflex to direct LDL (03/05/2024 8:58 AM EST) Cholesterol 150 0 - 200 mg/dL LAB CHEMISTRY METHOD 03/05/2024 12:42 PM EST [facility] Triglycerides 98 0 - 150 mg/dL LAB CHEMISTRY METHOD 03/05/2024 12:42 PM [facility] HDL 54 >=40 mg/dL LAB CHEMISTRY METHOD 03/05/2024 12:42 PM [facility] LDL Calculated 76 0 - 100 mg/dL LAB CHEMISTRY METHOD 03/05/2024 12:42 PM [facility] VLDL Cholesterol Santiago 19.6 mg/dL LAB CHEMISTRY METHOD 03/05/2024 12:42 PM [facility] Non HDL Chol. (LDL+VLDL) 96 <145 mg/dL LAB CHEMISTRY METHOD 03/05/2024 12:42 PM [facility] Chol/HDL Ratio 2.8 0.0 - 4.4 LAB CHEMISTRY METHOD 03/05/2024 12:42 PM [facility] Blood Venous blood specimen / Unknown Venipuncture / Unknown 03/05/2024 8:58 AM EST 03/05/2024 8:58 AM EST Rodo AGUILAR LAB BLOOD ORDERABLES Final Res ult [facility] [address] [place] [address], * Colonoscopy (08/08/2023) [facility] Colonoscopy Abstracted, no interpretation Anatomical Region Laterality Modality Other Historical Provider HEALTH MAINTENANCE Final Result * Hepatitis C Screening (08/11/1999) [facility] Hepatitis C Screening Abstracted Historical Provider HEALTH MAINTENANCE Final Result from Last 3 Months or Most Recently Relevant to Health Maintenance Insurance Care Teams Athletic Scout Relationship Specialty Start Date End Date Nabil Blanco MD [address] [place] [address] PCP - General 07/05/99
--- OUTSIDE RECORDS SUMMARY | 2025-01-06 17:21 | XMS_ITS ---
Author Organization [address] [place] [address] [place] [phone] Phone Care Team Providers Care Msw Name Role Phone Nabil Blanco MD Primary Care Provider [phone] Transitional Care Management Status:Ongoing (Active) Start date:12/23/2024 Enrollment date:12/24/2024 Enrollment reason:Identified using hospital discharge data Related social drivers of health:Housing Instability, Food Access & Nutrition, Access to Healthcare, TH Health Literacy, Financial Risk, Transportation, Social Isolation, Food Risk Case Team Name Relationship Phone Gwen Hong LPN(Responsible Staff) Care Manag er [phone] Continued Care and Services Coordination
== END 2025-01-06 14:59 | disposition home or self-care (01) ==
LOC: HO.HMGAL 14:59
PROVIDERS: PCP Pediatrics; Visit Provider Registered Nurse Emergency
DX: J30.89 Other allergic rhinitis (principal)
CPT/HCPCS: 95117; 95165

== ENCOUNTER 2025-01-20 08:54 | Outpatient (AMB) | payer OTHER, SELFPAY | END 2025-01-20 08:57 | disposition home or self-care (01) | LOC: HO.HMGAL 08:54 | PROVIDERS: PCP Pediatrics; Visit Provider Registered Nurse Emergency | DX: J30.89 Other allergic rhinitis (principal) | CPT/HCPCS: 95117; 95165 ==

== ENCOUNTER 2025-02-03 11:32 | Outpatient (AMB) | payer OTHER, SELFPAY ==
--- OUTSIDE RECORDS SUMMARY | 2025-02-03 08:30 | XMS_ITS | Encounter Summary ---
Author Organization [facility] Address [address] [place] [address] Care Team Providers Care Silk Screen Etcher Name Role Phone Nabil Blanco MD Primary Care Provider [phone] Reason for Referral * Medications - Authorized Specialty Diagnoses / Procedures Referred By Contac t Referred To Contact Diagnoses JARED (obstructive sleep apnea) Rodo Chandler PA [address] [place], [place] Phone: tel: fax: Referral ID Status Reason Start Date Expiration Date V isits Requested Visits Authorized [id number] Authorized 01/04/2025 10/01/2025 1 1 Reason for Visit * Reason Comments Physical Exam Encounter Details Date Type Department Care Team (Latest Contact Info) Description 02/03/2025 8:30 AM EST Office Visit Adult Medicine - [place] [address] [place] [address] Rodo Chandler PA [address] [place], [place] Adult general medical examination (Primary Dx); JARED (obstructive sleep apnea); Pacemaker; Aneurysm of ascending aorta without rupture (CMS/HCC V24); Class 3 severe obesity due to excess calories with serious comorbidity and body mass index (BMI) of 40.0 to 44.9 in adult (CMS/HCC V24, CMS/HCC V28); History of ventricular tachycardia; Elevated hemoglobin A1c; Nonspecific elevation of levels of transaminase or lactic acid dehydrogenase (LDH); Screening, anemia, deficiency, iron; Screening, lipid; Screening for prostate cancer; Need for vaccination against Streptococcus pneumoniae; Seasonal allergies Social History Tobacco Use Types Packs/Day Years Used Date Smoking Tobacco: Never Smokeless Tobacco: Never Tobacco Cessation:Counseling Given: Not Answered Alcohol Use Standard Drinks/Week Comments Yes 4 (1 standard drink = 0.6 oz pur e alcohol) beer/wine - 3 per week Housing Instability Answer Date Recorde d Are you worried that in the next 2 months you may not have stable housing? No 02/03/2025 Food Access & Nutrition Answer Date Rec orded Do you have access to a vari ety of food including fruits and vegetables? Yes 02/03/2025 Access to Healthcare Answer Date Record ed Within the last 3 months, ho w many times did you visit the emergency department for your medical care? 0 02/03/2025 Health Literacy Answer Date Recorded How often do you need to hav e someone help you when you read instructions, pamphlets, or other written material from your doctor or pharmacy? Never 02/03/2025 Caregiver: How often do you need to have someone help you when you read instructions, pamphlets, or other written material from your doctor or pharmacy? Not on file 02/03/2025 Financial Risk Answer Date Recorded How hard is it for you to pa y for the very basics like food, housing, medical care, and air conditioning / heating? Not very hard 02/03/2025 Transportation Answer Date Recorded Has the lack of transportati on kept you from meetings, work, or from getting things needed for daily living? No Has the lack of transportati on kept you from medical appointments or from getting medications? No 02/03/2025 Social Isolation Answer Date Recorded How often do you feel lonely or isolated from th ose around you? Never 02/03/2025 Food Risk Answer Date Recorded Within the past 12 months we worried whether our food would run out before we got money to buy more. Never true 02/03/2025 Within the past 12 months th e food we bought just didn't last and we didn't have money to get more. Never true 02/03/2025 Dependent Care Answer Date Recorded Do you need help finding or paying for care for your loved ones. For example, child care centre manager or elderly care for an older adult? No 02/03/2025 Education Answer Date Recorded Do you think completing more education or training, like finishing a GED, going to college, or learning a trade, would be helpful for you? No 02/03/2025 Employment and Income Answer Date Recor ded During the last four weeks, have you been actively looking for work? No 02/03/2025 Living Situation Answer Date Recorded What is your living situation? Unrecognized valu e 02/03/2025 Sex and Gender Information Value Date Recorded Sex Assigned at Male 02/16/2024 12:01 PM EST Legal Sex Male 1:48 AM EST Gender Identity Male 02/16/2024 12:01 PM EST Sexual Orientation Straight 02/16/2024 12 :01 PM EST Occupation Industry Job Start Date Job End Date salesforce developer for [employer] Not on file Not on file Not on file Travel History Travel Start Travel End [place] 01/21/2025 01/24/2025 documented as of this encounter Last Filed Vital Signs Vital Sign Reading Time Taken Comments Blood Pressure 138/87 02/03/2025 8:42 AM EST Pulse 76 02/03/2025 8:42 AM EST Temperature - - Respiratory Rate - - Oxygen Saturation - - Inhaled Oxygen Concentration - - Weight 144 kg (317 lb) 02/03/2025 8:42 AM EST Height 185.4 cm (6' 1 ) 02/03/2025 8:42 AM EST Body Mass Index 41.82 02/03/2025 8:42 AM EST documented in this encounter Ordered Prescriptions Prescription Sig Dispense Quantity Refills Last Filled Start Date End Date tirzepatide, weight loss, (Zepbound) 2.5 mg/0.5 mL injectionIndicatio ns:JARED (obstructive sleep apnea) Inject 0.5 mL (2.5 mg total) under the skin every 7 (seven) days. 2 mL 02/03/2025 03/05/2025 documented in this encounter Progress Notes * JEFF Cardoso - 02/03/2025 8:30 AM EST CHIEF COMPLAINT: Physical Exam IDENTIFIER: Finn Munson is a 59 y.o. old male. HPI: Patient presents today for annual physical exam. No acute complaints. Wants to revisit Zepbound. Different insurance. Last year they wanted $1k monthly. Walking, eating better, calisthenics. Lost 15 lbs in the last few months. Has seasonal allergies. Follows with [facility]. Allergy shots every two weeks.Cetirizine daily and saline sprays. In a monogamous heterosexual relationship. No STI concerns. Safe at home. 2 grown children living separately. Son just had second daughter. Has a dog. Continues work as a salesforce developer for [employer] Up-to-date on dental, vision, colonoscopy Denies any prostate symptoms Has pacemaker due to history of V. tach. Follows with cardiology. They are also keeping an eye on his a ascending aortic aneurysm. Has been stable. No significant episodes of V. tach and he feels well. On metoprolol 50 mg daily. ROS: GENERAL: Negative for malaise, significant weight loss and fever HEENT: No changes in hearing or vision. No nosebleeds or other nasal problems NECK: Negative for lumps, goiter, pain, and significant neck swelling RESPIRATORY: No cough, wheezing or shortness of breath CARDIOVASCULAR: Negative for chest pain, leg swelling and palpitations BREAST: No lumps, discharge, pain or change in skin GI: Negative for abdominal discomfort, changes in bowel habits, blood in stool or black stools : Negative for dysuria, frequency, and incontinence MUSCULOSKELETAL: Negative for joint pain or swelling, back pain and muscle pain. SKIN: No lesions, rash, or itching PSYCH: No sleep disturbances, depression or major stressors HEMATOLOGY/LYMPHOLOGY: No prolonged bleeding, easy bruising, or swollen lymph nodes ENDOCRINE: Negative for cold or heat intolerance, polyuria, polydipsia and goiter NEURO: No persistent headache, fainting, seizures, strokes, TIAs, weakness, numbness or tingling The remainder of review of systems is noncontributory. PAST MEDICAL HISTORY: Patient Active Problem List Diagnosis Date Noted Dizziness 12/23/2024 Pacemaker 12/23/2024 Class 3 severe obesity due to excess calories with serious comorbidity and body mass index (BMI) of40.0 to 44.9 in adult ([facility] V24, [facility] V28) 05/23/2024 VT (ventricular tachycardia) ([facility] V24, [facility] V28) 05/09/2023 JARED (obstructive sleep apnea) 08/18/2022 S/P placement of cardiac pacemaker 04/28/2022 Aortic aneurysm, thoracic (CMS/HCC V24) 03/07/2022 Aortic stenosis 03/07/2022 Snoring 03/07/2022 Obesity (BMI 35.0-39.9 without comorbidity) 12/05/2017 Allergic rhinitis 06/09/2006 Colon polyp 06/09/2006 Nonspecific [...] Taking[2] ALLERGIES: Ragweed PHYSICAL EXAM: Blood pressure 138/87, pulse 76, height 1.854 m (73 ), weight 144 kg (317 lb). Body mass index is 41.82 kg/m??. BMI is greater than 25.0 (above the normal range) - see Plan Wt Readings from Last 10 Encounters: 02/03/25 144 kg (317 lb) 01/14/25 150 kg (330 lb) 01/02/25 149 kg (328 lb 6.4 oz) 09/25/24 147 kg (325 lb) 07/15/24 150 kg (331 lb) 02/28/24 148 kg (327 lb) 05/30/23 147 kg (324 lb) 05/24/23 147 kg (324 lb) 05/09/23 148 kg (326 lb) 02/07/23 147 kg (323 lb) APPEARANCE: Alert and in no acute distress EYES: PERRLA, conjunctiva and sclera normal and normal fundal exam EARS: External ears normal. Canals clear. TMs normal. NOSE/SINUS: Nares normal. Septum midline. Mucosa normal. No drainage or sinus tenderness MOUTH/THROAT: no erythema, lesions, or exudates NECK: Neck supple, no adenopathy, thyroid symmetric and of normal size HEART: RRR with normal S1 and S2, no murmurs, no gallops, no JVD appreciated CHEST: non-tender LUNG: clear to auscultation bilaterally BREAST (MALE): Symmetrical, normal consistency without masses LYMPH NODES: grossly normal ABDOMEN: Bowel sounds normoactive, no bruits and soft, non-tender, without organomegaly or palpablemasses (MALE): Penis normal. No urethral discharge. Scrotum normal to palpation. No hernias. RECTAL (MALE): Anus normal, Prostate normal in size, consistency, without nodules or tenderness, Stool hemoccult negative BACK: no pain to palpation and good flexion and extension EXTREMITIES: Extremities warm and well perfused without clubbing, cyanosis, or edema NEURO: Awake, alert and oriented x 3 and reflexes symmetrical SKIN: Skin color, texture, turgor normal. No rashes or lesions. LABS/IMAGING: Lab Results Component Value Date WBC 5.3 03/05/2024 HGB 15.7 03/05/2024 HCT 48.0 03/05/2024 MCV 89.6 03/05/2024 Lab Results Component Value Date NA 139 08/01/2024 K 4.4 08/01/2024 CO2 27 08/01/2024 CL 105 08/01/2024 BUN 12 08/01/2024 ALKPHOS 88 08/01/2024 Lab Results Component Value Date CHOL 150 03/05/2024 LDL 88 02/13/2023 HDL 54 03/05/2024 TRIG 98 03/05/2024 IMPRESSION: 1. JARED (obstructive sleep apnea) 2. Pacemaker 3. Aneurysm of ascending aorta without rupture ([facility] V24) 4. Class 3 severe obesity due to excess calories with serious comorbidity and body mass index (BMI)of 40.0 to 44.9 in adult ([facility] V24, [facility] V28) PLAN: 1. Health maintenance: The patient presented for an evaluation of general health. As part of this visit, we reviewed the following issues, which are considered an essential part of preventative health in this age group: - Prostate cancer screening with digital rectal exam and PSA testing - ordered - Colon cancer screening (colonoscopy every 10 years/annual FOBT plus flexi sigmoidoscopy every 5 years/double-contrast BE every 5 years/Cologuard every 3 years/Annual FOBT) - up to date - Testicular cancer screening, which includes self-exam teaching - Blood pressure screening yearly - Cholesterol screening every five years - ordered - Nutritional and exercise counseling - patient advised to pursue at least 30 minutes of exercise most days of the week, limit portion sizes, eat breakfast, and avoid eating after dinner - Counseling of injury prevention including fire prevention, smoke alarms and seat belt usage - Screening for depression - over the past TWO WEEKS, been bothered by little INTEREST or PLEASURE in doing things or by feeling DOWN, DEPRESSED, or HOPELESS? No - Screening for domestic abuse - Screening for Type 2 diabetes mellitus in those with hypertension and/or hyperlipidemia - Education about skin cancer - Recommendations about immunizations - patient is due for Pneumonia immunization and is ordered for this - Recommendation of an eye exam for glaucoma every 2-4 years in this age range - patient will self-refer - Screening for substance abuse (including tobacco, alcohol, and recreational drugs) - see Substance & Sexuality section of medical record - Genetic cancer risk screening - NO INDICATION: Hereditary Cancer Syndrome Risk Assessment completed and evaluated. No indication found for genetic testing at this time. - In addition to reviewing these issues, I have reviewed the following sections of the chart: Past Medical History, Social History, and Social History - Did you have a dental visit in the last 12 months? Yes - Did you have a dental problem in the last 6 months? No Tirzepatide ordered due to history of morbid obesity, sleep apnea and V. tach with pacemaker. He would definitely benefit from this and has been making efforts to lose weight and has lost about 15 pounds thus far but has quite a ways to go. Encouraged regarding protein intake. He will call for refills when he needs the next dose. Discussed signs and symptoms warranting reevaluation. Risks, benefits, and side-effects of the medication were discussed and the patient expressed verbalunderstanding and consents to the plan. Followup in 3 months This note was created using dictation software and may contain syntax and grammar errors. No orders of the defined types were placed in this encounter. JEFF Cardoso on 02/03/2025 at 8:48 AM EST [1] Family History Problem Relation Name Age of Onset Thyroid disease Mother Colon cancer Father 46, CAD 40's, of CHD @ 75 No Known Problems Sister No Known Problems Sister Coronary artery disease Brother cabg No Known Problems Brother No Known Problems Son [2] Outpatient Medications Marked as Taking for the 02/03/25 encounter (Office Visit) with JEFF Cardoso Medication Sig Dispense Refill cetirizine (ZyrTEC) 10 mg tablet Take 1 tablet (10 mg total) by mouth 1 (one) time each day. metoprolol succinate (TOPROL-XL) 50 mg 24 hr tablet Take 1 tablet (50 mg total) by mouth 1 (one) time each day. Do not crush or chew. 90 each 1 multivit-min/ferrous fumarate (MULTI VITAMIN ORAL) Take 1 Tablet by mouth daily. * Caitlin Hurt MA - 02/03/2025 8:30 AM EST Images from the original note were not included. Approved Prior authorization approved Payer: [employer] [phone] Note from payer: CaseId:[id number];Status:Approved;Review Type:Prior Auth;Coverage Start Date:01/04/2025;Coverage End Date:10/01/2025; Approval Details Authorized from January 04, 2025 to October 01, 2025 Electronic appeal: Not supported Prior auth initiated by: Caitlin Hurt MA documented in this encounter Plan of Treatment Upcoming Encounters Date Type Department Care Team (Late st Contact Info) Description 02/07/2025 10:30 AM EST Clinical Support Adult Medicine [address] [address] 05/08/2025 2:30 PM EST Ancillary Procedure [facility] - [facility] [address] [facility] [address] [place] [address] Pending Results Name Type Priority Associated Diagnoses Date /Time Prostate specific antigen screen Lab Routine Screening for prostate cancer 02/03/2025 9:28 AM EST Scheduled Orders Name Type Priority Associated Diagnoses Orde r Schedule Prostate specific antigen screen Lab Routine Screening for prostate cancer 1 Occurrences starting 02/03/2025 until 02/03/2026 documented as of this encounter Results * (ABNORMAL) Comprehensive metabolic panel (02/03/2025 9:28 AM EST) Sodium 138 133 - 145 mmol/L LAB CHEMISTRY METHOD 02/03/2025 1:20 PM [facility] Potassium 4.7 3.5 - 5.5 mmol/L LAB CHEMISTRY METHOD 02/03/2025 1:20 PM [facility] Chloride 104 96 - 110 mmol/L LAB CHEMISTRY METHOD 02/03/2025 1:20 PM [facility] CO2 30 21 - 32 mmol/L LAB CHEMISTRY METHOD 02/03/2025 1:20 PM [facility] Anion Gap 4 3 - 11 LAB CHEMISTRY METHOD 02/03/2025 1:20 PM [facility] Glucose 137(H) 70 - 100 mg/dL LAB CHEMISTRY METHOD 02/03/2025 1:20 PM [facility] BUN 12 5 - 25 mg/dL LAB CHEMISTRY METHOD 02/03/2025 1:20 PM [facility] Creatinine 1.17 0.70 - 1.30 mg/dL LAB CHEMISTRY METHOD 02/03/2025 1:20 PM [facility] eGFR 72 >=60 mL/min/1. 73m2 LAB CHEMISTRY METHOD 02/03/2025 1:20 PM [facility] Comment:Calculation based on the Chronic Kidney Disease Epidemiology Collaboration (CKD-EPI) equation refit without adjustment for race. BUN/Creatinine Ratio 10.3 LAB CHEMISTRY METHOD 02/03/2025 1:20 PM [facility] Calcium 8.8 8.5 - 10.5 mg/dL LAB CHEMISTRY METHOD 02/03/2025 1:20 PM [facility] AST (SGOT) 82(H) 10 - 42 unit/L LAB CHEMISTRY METHOD 02/03/2025 1:20 PM [facility] ALT (SGPT) 141(H) 10 - 60 unit/L LAB CHEMISTRY METHOD 02/03/2025 1:20 PM [facility] Alkaline Phosphatase 81 42 - 121 unit/L LAB CHEMISTRY METHOD 02/03/2025 1:20 PM [facility] Total Protein 7.7 6.0 - 8.0 g/dL LAB CHEMISTRY METHOD 02/03/2025 1:20 PM [facility] Albumin 4.1 3.2 - 5.0 g/dL LAB CHEMISTRY METHOD 02/03/2025 1:20 PM [facility] Total Bilirubin 0.7 0.0 - 1.4 mg/dL LAB CHEMISTRY METHOD 02/03/2025 1:20 PM [facility] Blood Venous blood specimen / Unknown Venipuncture / Unknown 02/03/2025 9:28 AM EST 02/03/2025 9:28 AM EST us Rodo AGUILAR LAB BLOOD ORDERABLES Final Res ult [facility] [address] [place] [address], [place] [phone] * Lipid panel with reflex to direct LDL (02/03/2025 9:28 AM EST) Cholesterol 151 0 - 200 mg/dL LAB CHEMISTRY METHOD 02/03/2025 1:20 PM [facility] Triglycerides 93 0 - 150 mg/dL LAB CHEMISTRY METHOD 02/03/2025 1:20 PM [facility] HDL 56 >=40 mg/dL LAB CHEMISTRY METHOD 02/03/2025 1:20 PM [facility] LDL Calculated 76 0 - 100 mg/dL LAB CHEMISTRY METHOD 02/03/2025 1:20 PM [facility] Comment:Estimated LDL Calcul ated using equation: Total cholesterol - HDL cholesterol - (Triglycerides/5) VLDL Cholesterol Santiago 18.6 mg/dL LAB CHEMISTRY METHOD 02/03/2025 1:20 PM [facility] Non HDL Chol. (LDL+VLDL) 95 <145 mg/dL LAB CHEMISTRY METHOD 02/03/2025 1:20 PM EST [facility] Chol/HDL Ratio 2.7 0.0 - 4.4 LAB CHEMISTRY METHOD 02/03/2025 1:20 PM EST [facility] Blood Venous blood specimen / Unknown Venipuncture / Unknown 02/03/2025 9:28 AM EST 02/03/2025 9:28 AM EST us Rodo AGUILAR LAB BLOOD ORDERABLES Final Res ult [facility] [address] [place] [address], documented in this encounter Visit Diagnoses Diagnosis Adult general medical examination- Primary Unspecified general medical examination JARED (obstructive sleep apnea) Obstructive sleep apnea (adult) (pediatric) Pacemaker Cardiac pacemaker in situ Aneurysm of ascending aorta without rupture (CMS/[facility] V24) Class 3 severe obesity due to excess calories with serious comorbidity and body mass index (BMI) of 40.0 to 44.9 in adult (CMS/HCC V24, CMS/HCC V28) History of ventricular tachycardia Personal history of other diseases of circulatory system Elevated hemoglobin A1c Other abnormal blood chemistry Nonspecific elevation of levels of transaminase or lactic acid dehydrogenase (LDH) Screening, anemia, deficiency, iron Screening for iron deficiency anemia Screening, lipid Screening for prostate cancer Special screening for malignant neoplasm of prostate Need for vaccination against Streptococcus pneumoniae Seasonal allergies Allergic rhinitis, cause unspecified Encounter for adjustment or management of cardiac device documented in this encounter Historical Medications * This list may reflect changes made after this encounter. cetirizine (ZyrTEC) 10 mg tablet Take 1 tablet (10 mg total) by mouth 1 (one) time each day. added in this encounter Orders Immunization/Injection Count Last Ordered Date First Ordered Date PNEUMOCOCCAL CONJUGATE 20 VA LENT (PREVNAR 20, PCV 20) 2MO AND OLDER 1 02/03/2025 documented in this encounter Additional Health Concerns Assessment Noted Time PHQ-9 Depression Total Score: 0 08/28/19 25 10:16 AM EDT documented as of this encounter Care Teams Silk Screen Etcher Relationship Specialty Start Date End Date Nabil Blanco MD [address] [place] [address] PCP - General 07/05/99 documented as of this encounter
--- OUTSIDE RECORDS SUMMARY | 2025-02-03 09:30 | XMS_ITS | Encounter Summary ---
Author Organization [facility] [place] [address] Care Team Providers Care [employer] Helper Name Role Phone Nabil Blanco MD Primary Care Provider [phone] Encounter Details Date Type Department Care Team (Late st Contact Info) Description 02/03/2025 9:30 AM [facility] Lab Draw Station - [address] [address] Screening, anemia, deficiency, iron; Screening, lipid; JARED (obstructive sleep apnea); Class 3 severe obesity due to excess calories with serious comorbidity and body mass index (BMI) of 40.0 to 44.9 in adult (CMS/HCC V24, CMS/HCC V28); Nonspecific elevation of levels of transaminase or lactic acid dehydrogenase (LDH); Screening for prostate cancer Social History Tobacco Use Types Packs/Day Years [...] do you feel lonely or isolated from ose around you? Never 02/03/2025 Food Risk [...] for your loved ones. For example, director child development center or elderly care for an older adult? 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 [employer] Not on file Not on file Not on file Travel History Travel Start Travel End [place] 01/21/2025 01/24/2025 documented as of this encounter Plan of Treatment Upcoming Encounters Date Type Department Care Team (Late st Contact Info) Description 02/07/2025 10:30 AM EST Clinical Support Adult Medicine - [place] [address] [facility] [place] [phone] 05/08/2025 2:30 PM EST Ancillary Procedure [facility] - [facility] [address] [facility] [address] [place] [address] Pending Results Name Type Priority Associated Diagnoses Date /Time Prostate specific antigen screen Lab Routine Screening for prostate cancer 02/03/2025 9:28 AM EST documented as of this encounter Procedures Procedure Name Priority Date/Time Associated Diagnosis Comments LIPID PANEL WITH REFLEX TO DIRECT LDL Routine 02/03/2025 9:28 AM EST Screening, lipid CBC WITH AUTO DIFFERENTIAL Routine 02/03/2025 9:28 AM EST Screening, anemia, deficiency, iron CBC AND DIFFERENTIAL Routine 02/03/2025 9:28 AM EST Screening, anemia, deficiency, iron COMPREHENSIVE METABOLIC PANEL Routine 02/03/2025 9:28 AM EST JARED (obstructive sleep apnea) Class 3 severe obesity due to excess calories with serious comorbidity and body mass index (BMI) of 40.0 to 44.9 in adult (CMS/HCC V24, CMS/HCC V28) Nonspecific elevation of levels of transaminase or lactic acid dehydrogenase (LDH) documented in this encounter Results * CBC auto differential (02/03/2025 9:28 AM EST) WBC 6.2 4.8 - 10.8 K/mcL LAB HEMETOLOGY METHOD 02/03/2025 1:31 PM EST [facility] RBC 5.50 4.50 - 5.50 M/mcL LAB HEMETOLOGY METHOD 02/03/2025 1:31 PM EST [facility] Hemoglobin 15.8 13.5 - 17.5 g/dL LAB HEMETOLOGY METHOD 02/03/2025 1:31 PM EST [facility] Hematocrit 48.7 42.0 - 54.0 % LAB HEMETOLOGY METHOD 02/03/2025 1:31 PM [facility] MCV 88.1 79.0 - 98.0 FL LAB HEMETOLOGY METHOD 02/03/2025 1:31 PM [facility] MCH 28.6 27.0 - 32.0 pcg LAB HEMETOLOGY METHOD 02/03/2025 1:31 PM [facility] MCHC 32.4 32.0 - 37.0 g/dL LAB HEMETOLOGY METHOD 02/03/2025 1:31 PM [facility] RDW 13.2 11.0 - 15.0 % LAB HEMETOLOGY METHOD 02/03/2025 1:31 PM [facility] Platelets 201 130 - 400 K/mcL LAB HEMETOLOGY METHOD 02/03/2025 1:31 PM [facility] MPV 10.2 7.0 - 11.0 FL LAB HEMETOLOGY METHOD 02/03/2025 1:31 PM [facility] NRBC 0.0 <1.0 % LAB HEMETOLOGY METHOD 02/03/2025 1:31 PM [facility] NRBC Absolute 0.00 <0.10 K/mcL LAB HEMETOLOGY METHOD 02/03/2025 1:31 PM [facility] Neutrophils Relative 49.6 % LAB HEMETOLOGY METHOD 02/03/2025 1:31 PM [facility] Lymphocytes Relative 37.6 % LAB HEMETOLOGY METHOD 02/03/2025 1:31 PM [facility] Monocytes Relative 9.9 % LAB HEMETOLOGY METHOD 02/03/2025 1:31 PM [facility] Eosinophils Relative 1.5 % LAB HEMETOLOGY METHOD 02/03/2025 1:31 PM [facility] Basophils Relative 1.1 % LAB HEMETOLOGY METHOD 02/03/2025 1:31 PM EST [facility] Immature Granulocytes Relative 0.3 % LAB HEMETOLOGY METHOD 02/03/2025 1:31 PM EST [facility] Neutrophils Absolute 3.07 1.50 - 7.00 K/mcL LAB HEMETOLOGY METHOD 02/03/2025 1:31 PM EST [facility] Lymphocytes Absolute 2.33 1.00 - 5.00 K/mcL LAB HEMETOLOGY METHOD 02/03/2025 1:31 PM EST [facility] Monocytes Absolute 0.61 0.20 - 1.00 K/mcL LAB HEMETOLOGY METHOD 02/03/2025 1:31 PM [facility] Eosinophils Absolute 0.09 0.00 - 0.50 K/mcL LAB HEMETOLOGY METHOD 02/03/2025 1:31 PM [facility] Basophils Absolute 0.07 0.00 - 0.20 K/mcL LAB HEMETOLOGY METHOD 02/03/2025 1:31 PM EST [facility] Immature Granulocytes Absolute 0.02 0.00 - 0.03 K/mcL LAB HEMETOLOGY METHOD 02/03/2025 1:31 PM EST [facility] Blood Venous blood specimen / Unknown Venipuncture / Unknown 02/03/2025 9:28 AM EST 02/03/2025 9:28 AM EST [facility] LAB BLOOD ORDERABLES Final Res ult [facility] [address] [place] [address], * (ABNORMAL) Comprehensive metabolic panel (02/03/2025 9:28 AM EST) Sodium 138 133 - 145 mmol/L LAB CHEMISTRY METHOD 02/03/2025 1:20 PM EST [facility] Potassium 4.7 3.5 - 5.5 mmol/L LAB CHEMISTRY METHOD 02/03/2025 1:20 PM [facility] Chloride 104 96 - 110 mmol/L LAB CHEMISTRY METHOD 02/03/2025 1:20 PM [facility] CO2 30 21 - 32 mmol/L LAB CHEMISTRY METHOD 02/03/2025 1:20 PM [facility] Anion Gap 4 3 - 11 LAB CHEMISTRY METHOD 02/03/2025 1:20 PM [facility] Glucose 137(H) 70 - 100 mg/dL LAB CHEMISTRY METHOD 02/03/2025 1:20 PM [facility] BUN 12 5 - 25 mg/dL LAB CHEMISTRY METHOD 02/03/2025 1:20 PM [facility] Creatinine 1.17 0.70 - 1.30 mg/dL LAB CHEMISTRY METHOD 02/03/2025 1:20 PM [facility] eGFR 72 >=60 mL/min/1. 73m2 LAB CHEMISTRY METHOD 02/03/2025 1:20 PM [facility] Comment:Calculation based on the Chronic Kidney Disease Epidemiology Collaboration (CKD-EPI) equation refit without adjustment for race. BUN/Creatinine Ratio 10.3 LAB CHEMISTRY METHOD 02/03/2025 1:20 PM [facility] Calcium 8.8 8.5 - 10.5 mg/dL LAB CHEMISTRY METHOD 02/03/2025 1:20 PM [facility] AST (SGOT) 82(H) 10 - 42 unit/L LAB CHEMISTRY METHOD 02/03/2025 1:20 PM [facility] ALT (SGPT) 141(H) 10 - 60 unit/L LAB CHEMISTRY METHOD 02/03/2025 1:20 PM [facility] Alkaline Phosphatase 81 42 - 121 unit/L LAB CHEMISTRY METHOD 02/03/2025 1:20 PM [facility] Total Protein 7.7 6.0 - 8.0 g/dL LAB CHEMISTRY METHOD 02/03/2025 1:20 PM [facility] Albumin 4.1 3.2 - 5.0 g/dL LAB CHEMISTRY METHOD 02/03/2025 1:20 PM [facility] Total Bilirubin 0.7 0.0 - 1.4 mg/dL LAB CHEMISTRY METHOD 02/03/2025 1:20 PM [facility] Blood Venous blood specimen / Unknown Venipuncture / Unknown 02/03/2025 9:28 AM EST 02/03/2025 9:28 AM EST us [facility] LAB BLOOD ORDERABLES Final Res ult [facility] [address] [place] [address], [place] [phone] * Lipid panel with reflex to direct LDL (02/03/2025 9:28 AM EST) Cholesterol 151 0 - 200 mg/dL LAB CHEMISTRY METHOD 02/03/2025 1:20 PM [facility] Triglycerides 93 0 - 150 mg/dL LAB CHEMISTRY METHOD 02/03/2025 1:20 PM [facility] HDL 56 >=40 mg/dL LAB CHEMISTRY METHOD 02/03/2025 1:20 PM [facility] LDL Calculated 76 0 - 100 mg/dL LAB CHEMISTRY METHOD 02/03/2025 1:20 PM [facility] Comment:Estimated LDL Calcul ated using equation: Total cholesterol - HDL cholesterol - (Triglycerides/5) VLDL Cholesterol Santiago 18.6 mg/dL LAB CHEMISTRY METHOD 02/03/2025 1:20 PM [facility] Non HDL Chol. (LDL+VLDL) 95 <145 mg/dL LAB CHEMISTRY METHOD 02/03/2025 1:20 PM [facility] Chol/HDL Ratio 2.7 0.0 - 4.4 LAB CHEMISTRY METHOD 02/03/2025 1:20 PM EST [facility] Blood Venous blood specimen / Unknown Venipuncture / Unknown 02/03/2025 9:28 AM EST 02/03/2025 9:28 AM EST us [facility] LAB BLOOD ORDERABLES Final Res ult [facility] [address] [place] [address], documented in this encounter Visit Diagnoses Diagnosis Screening, anemia, deficiency, iron Screening for iron deficiency anemia Screening, lipid JARED (obstructive sleep apnea) Obstructive sleep apnea (adult) (pediatric) Class 3 severe obesity due to excess calories with serious comorbidity and body mass index (BMI) of 40.0 to 44.9 in adult (CMS/HCC V24, CMS/HCC V28) Nonspecific elevation of levels of transaminase or lactic acid dehydrogenase (LDH) Screening for prostate cancer Special screening for malignant neoplasm of prostate Encounter for adjustment or management of cardiac device documented in this encounter Additional Health Concerns Assessment Noted Time PHQ-9 Depression Total Score: 0 08/28/19 25 10:16 AM EDT documented as of this encounter Care Teams [employer] Relationship Specialty Start Date End Date Nabil Blanco MD [address] [place] [id number] PCP - General 07/05/99 documented as of this encounter
--- OUTSIDE RECORDS SUMMARY | 2025-02-03 14:40 | XMS_ITS | Clinical Summary ---
Author Organization [address] [place] [address] [place] [phone] Phone Care Team Providers Care Agricultural Researcher Name Role Phone Nabil Blanco MD Primary Care Provider [phone] Allergies Active Allergy Reactions Criticality Noted Date [...] or chew. 90 each 1 5 Active cetirizine (ZyrTEC) 10 mg tablet Take 1 tablet (10 mg total) by mouth 1 (one) time each day. Active tirzepatide, weight loss, (Zepbound) 2.5 mg/0.5 mL injectionIndica tions:JARED (obstructive sleep apnea) Inject 0.5 mL (2.5 mg total) under the skin every 7 (seven) days. 2 mL 5 03/05/20 25 Active metoprolol succinate (TOPROL-XL) 50 mg 24 hr tablet Take 1 tablet (50 mg total) by mouth 1 (one) time each day. Do not crush or chew. 90 each 1 5 01/07/20 25 Discontinu ed(Reorder ) Active Problems Problem Noted Date Diagnosed Date Seasonal allergies 02/03/2025 Pacemaker 12/23/2024 Class 3 severe obesity due t o excess calories with serious comorbidity and body mass index (BMI) of 40.0 to 44.9 in adult ([facility] V24, [facility] V28) 05/23/2024 VT (ventricular tachycardia) ([facility] V24, [facility] V28) 05/09/2023 Overview (02/19/2024): Last Assessment [...] been attempting to contact sleep medicine of [facility] multiple times and unable to reach someone to assist him to arrange CPAP and titration study. He will reach out to sleep medicine services of [facility] to ensure the patient can obtain CPAP as soon as possible. Assessment & Plan (01/14/2025 11:47 AM EDT): Orders: ECG 12 lead JARED (obstructive sleep apnea) 08/18/2022 Overview (02/19/2024): 08/23 severe S/P placement of cardiac pacemaker 04/28/2022 Overview (01/07/2025): Done at [facility] on 04/01/22 with SR - Indications: Mobitz type II heart block Last Assessment & Plan: The patient has a history of AV block status post pacemaker placement. No evidence of cardiac sarcoidosis on the cardiac PET scan. The patient's pacemaker was noted to be working appropriately on his last device interrogation. The patient participates in scuba diving/sea diving. I will request for the device team to contact the device manufacture to make sure that this activity is safe for his pacemaker type. Aortic aneurysm, thoracic ([facility] V24) 03/07/20 Overview (10/22/2024): 04/25 4.1 02/23--4.2 cm 10/25 (cardiology) stable Assessment & Plan (01/14/2025 12:09 PM EDT): Aortic stenosis 03/07/2022 Overview (02/19/2024): Last Assessment & Plan: The patient was found to have a mild aortic valve stenosis on his echocardiogram done in January 2022. We will continue periodic echocardiographic monitoring. Assessment & Plan (01/14/2025 12:09 PM EDT): Obesity (BMI 35.0-39.9 without comorbidity) 07/2017 Overview [...] the patient would benefit from statin therapy Allergic rhinitis 06/09/2006 Overview (02/19/2024): Allergy shots [...] Encounters Date Type Department Care Team Description 02/03/2025 9:30 AM EST Lab Draw Station - [address] [address] Screening, anemia, deficiency, iron; Screening, lipid; JARED (obstructive sleep apnea); Class 3 severe obesity due to excess calories with serious comorbidity and body mass index (BMI) of 40.0 to 44.9 in adult (CMS/HCC V24, CMS/HCC V28); Nonspecific elevation of levels of transaminase or lactic acid dehydrogenase (LDH); Screening for prostate cancer 02/03/2025 8:30 AM EST Office Visit Adult Medicine - [address] [phone] Rodo Chandler PA Adult general medical examination (Primary Dx); JARED [...] for vaccination against Streptococcus pneumoniae; Seasonal allergies 01/14/2025 11:20 AM EDT Office Visit [facility] [address] [facility] [address] [place] [address] Chucky Snow MD VT (ventricular tachycardia) (CMS/HCC V24, CMS/HCC V28) (Primary Dx); Aneurysm of ascending aorta without rupture ([facility] V24); Nonrheumatic aortic valve stenosis 01/06/[address] [facility] [address] [facility] [address] [place] [address] Chucky Snow MD 01/02/2025 11:00 AM EDT Office Visit Adult Medicine - [facility] [place] [address] [place] [phone] Nabil Blanco MD Vertigo (Primary Dx) 12/25/2024 Telephone Adult Medicine [facility] [address] [place] [address] Alec Marrero RN 12/24/2024 Telephone Adult Medicine - [place] [address] [place] [phone] Nabil Blanco MD 12/20/2024 Telephone [facility] [address] [facility] [address] [place] [address] Chucky Snow MD 12/12/2024 5:10 AM EDT Ancillary Procedure [facility] [address] [place] [address] 11/18/2024 3:15 AM EDT Ancillary Procedure [facility] [address] [place] [address] from Last 3 Months Immunizations Immunization Administration Dates Next Due Influenza Quadravalent, MDCK , 0.5ml, preservative free (Flucelvax) 6mo and older 02/10/2023,01/03/2020,01/25/2019,2017 Influenza Quadrivalent, 0.5m l, preservative free (Fluarix; FluLaval; Fluzone) ages 6mo and older (Afluria) 3yo and older 03/24/2022,02/12/2021 Influenza trivalent, MDCK, 0 .5mL, preservative free (Flucelvax) 6mo and older 02/25/2024 Influenza trivalent, recombi nant, 0.5mL, preservative free (Flublok) 9yo and older 12/26/2024 Influenza trivalent, with preservative (Fluzone; Afluria) 6mo and older 04/20/2016,02/07/2012,12/19/2008 Tdap Tetanus diptheria acell ular pertussis (Boostrix; Adacel) 7yo and older 03/24/2022,04/20/2016,06/08/2006 Zoster recombinant (Shingrix ) 19yo and older 10/11/2021,04/18/2021 Surgical History Surgery Date Site/Laterality Comments COLONOSCOPY 09/07/06, [facility] PROCEDURE: [place] COLONOSCOPY STOMA DX INCLUDING COLLJ SPEC SPX; COMMENT: Normal: repeat in five years COLONOSCOPY 10/12/2014 PROCEDURE: [place] COLONOSCOPY STOMA W/RMVL JAMESON POLYP/OTH LES SNARE; [...] of CHD @ 75 Thyroid disease Mother Isatu Munson No Known Problems Sister 1 No Known Problems Sister 2 No Known Problems Son Relation Name Status Comments Brother 1 Alive Brother 2 Alive Daughter Alive Father (Age 75) Maternal Grandfather Maternal Grandmother Mother Isatu Niziolek Alive Paternal Grandfather Paternal Grandmother Sister 1 Alive Sister 2 Alive Son [...] care for your loved ones. For example, children's institution attendant or elderly care for an older adult? 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[employer] Not on file Not on file Not on file Travel History Travel Start Travel End [place] 01/21/2025 01/24/2025 Obstetrics History Last Filed Vital Signs Vital Sign Reading Time Taken Comments Blood Pressure 138/87 02/03/2025 8:42 AM EST Pulse 76 02/03/2025 8:42 AM EST Temperature 36.7 C (98 F) 01/02/2025 10:49 AM EDT Respiratory Rate - - Oxygen Saturation 97% 01/14/2025 11:27 AM EDT Inhaled Oxygen Concentration - - Weight 144 kg (317 lb) 02/03/2025 8:42 AM EST Height 185.4 cm (6' 1 ) 02/03/2025 8:42 AM EST Body Mass Index 41.82 02/03/2025 8:42 AM EST Plan of Treatment Upcoming Encounters Date Type Department Care Team (Late st Contact Info) Description 02/07/2025 10:30 AM EST Clinical Support Adult Medicine [facility] [address] [place] [address] 05/08/2025 2:30 PM EST Ancillary Procedure [facility] - [facility] [address] [facility] [address] [place] [address] Health Maintenance Due Date Last Done Comments Pneumococcal Vaccine: 50+ Years (1 of 1 - PCV) 09/05/2015 RSV Immunization Adult Patients (1 - Risk 50-74 years 1-dose series) 09/05/2015 Social Influencers of Health Screening 02/03/2026 02/03/2025 Colorectal Cancer Screening: Colonoscopy 08/07/2028 08/08/2023 Cholesterol Screening (Lipid Panel) 03/05/2029 02/03/2025, 03/05/2024, 02/13/2023 DTaP,Tdap,and Td Vaccines (4 - Td or Tdap) 03/24/2032 03/24/2022, 04/20/2016, 06/08/2006 Hepatitis C Screening Completed 08/11/1999 Zoster Vaccines Completed 10/11/2021, 04/18/2021 Depression Screening Completed 08/27/2024 COVID-19 Vaccine Completed 12/26/2024, , 02/03/2023, Additional history exists Influenza Vaccine Completed 12/26/2024, , 02/10/2023, Additional history exists HIB Vaccines Aged Out No longer eligi ble based on patient's age to complete this topic HIV Screening Discontinued HPV Vaccines Aged Out No longer eligi ble based on patient's age to complete this topic Hepatitis A Vaccines Aged Out No long er eligible based on patient's age to complete this topic Hepatitis B Vaccines Discontinued IPV Vaccines Aged Out No longer eligi [...] this topic Medical Devices Implanted Type Area Erosion Control Specialist Device Identifier Shelf Expiration Date Model / Serial / Lot Medt-Card Dejah Xt Dr Renee [id number] Implanted: (Quantity not on file) Cardiac Pacemaker [employer] - CARDIAC RHYTH-CRDM DEJAH XT DR RENEE [id number] / [id number] / Medt-Card [place] Xt Dr Renee [id number] Implanted: (Quantity not on file) Cardiac Pacemaker [employer] - CARDIAC RHYTH-CRDM DEJAH XT DR RENEE / [id number] / Procedures Procedure Name Priority Date/Time Associated Diagnosis Comments CBC WITH AUTO DIFFERENTIAL Routine 02/03/2025 9:28 AM EST Screening, anemia, deficiency, iron COMPREHENSIVE METABOLIC PANEL Routine 02/03/2025 9:28 AM EST JARED (obstructive sleep apnea) Class 3 severe obesity due to excess calories with serious comorbidity and body mass index (BMI) of 40.0 to 44.9 in adult (CMS/HCC V24, CMS/HCC V28) Nonspecific elevation of levels of transaminase or lactic acid dehydrogenase (LDH) LIPID PANEL WITH REFLEX TO DIRECT LDL Routine 02/03/2025 9:28 AM EST Screening, lipid CBC AND DIFFERENTIAL Routine 02/03/2025 9:28 AM EST Screening, anemia, deficiency, iron ECG 12-LEAD Routine 01/14/2025 11:34 AM EDT VT (ventricular tachycardia) (CMS/HCC V24, CMS/HCC V28) CARDIAC DEVICE CHECK- REMOTE- MURJ Routine 12/12/2024 5:09 AM EDT CARDIAC DEVICE CHECK- REMOTE- MURJ Routine 11/18/2024 3:12 AM EDT HM COLONOSCOPY Routine 08/08/2023 HEPATITIS C SCREENING Routine 08/11/1999 from Last 3 Months or Most Recently Relevant to Health Maintenance Results * Lipid panel with reflex to direct LDL (02/03/2025 9:28 AM EST) Cholesterol 151 0 - 200 mg/dL LAB CHEMISTRY METHOD 02/03/2025 1:20 PM EST [facility] Triglycerides 93 0 - 150 mg/dL LAB CHEMISTRY METHOD 02/03/2025 1:20 PM EST [facility] HDL 56 >=40 mg/dL LAB CHEMISTRY METHOD 02/03/2025 1:20 PM EST [facility] LDL Calculated 76 0 - 100 mg/dL LAB CHEMISTRY METHOD 02/03/2025 1:20 PM [facility] Comment:Estimated LDL Calcul ated using equation: Total cholesterol - HDL cholesterol - (Triglycerides/5) VLDL Cholesterol Santiago 18.6 mg/dL LAB CHEMISTRY METHOD 02/03/2025 1:20 PM [facility] Non HDL Chol. (LDL+VLDL) 95 <145 mg/dL LAB CHEMISTRY METHOD 02/03/2025 1:20 PM [facility] Chol/HDL Ratio 2.7 0.0 - 4.4 LAB CHEMISTRY METHOD 02/03/2025 1:20 PM [facility] Blood Venous blood specimen / Unknown Venipuncture / Unknown 02/03/2025 9:28 AM EST 02/03/2025 9:28 AM EST Rodo AGUILAR LAB BLOOD ORDERABLES Final Res ult [facility] [address] [place] [address], * CBC auto differential (02/03/2025 9:28 AM EST) WBC 6.2 4.8 - 10.8 K/mcL LAB HEMETOLOGY METHOD 02/03/2025 1:31 PM [facility] RBC 5.50 4.50 - 5.50 M/mcL LAB HEMETOLOGY METHOD 02/03/2025 1:31 PM [facility] Hemoglobin 15.8 13.5 - 17.5 g/dL LAB HEMETOLOGY METHOD 02/03/2025 1:31 PM [facility] Hematocrit 48.7 42.0 - 54.0 % LAB HEMETOLOGY METHOD 02/03/2025 1:31 PM [facility] MCV 88.1 79.0 - 98.0 FL LAB HEMETOLOGY METHOD 02/03/2025 1:31 PM [facility] MCH 28.6 27.0 - 32.0 pcg LAB HEMETOLOGY METHOD 02/03/2025 1:31 PM [facility] MCHC 32.4 32.0 - 37.0 g/dL LAB HEMETOLOGY METHOD 02/03/2025 1:31 PM [facility] RDW 13.2 11.0 - 15.0 % LAB HEMETOLOGY METHOD 02/03/2025 1:31 PM [facility] Platelets 201 130 - 400 K/mcL LAB HEMETOLOGY METHOD 02/03/2025 1:31 PM [facility] MPV 10.2 7.0 - 11.0 FL LAB HEMETOLOGY METHOD 02/03/2025 1:31 PM [facility] NRBC 0.0 <1.0 % LAB HEMETOLOGY METHOD 02/03/2025 1:31 PM [facility] NRBC Absolute 0.00 <0.10 K/mcL LAB HEMETOLOGY METHOD 02/03/2025 1:31 PM [facility] Neutrophils Relative 49.6 % LAB HEMETOLOGY METHOD 02/03/2025 1:31 PM [facility] Lymphocytes Relative 37.6 % LAB HEMETOLOGY METHOD 02/03/2025 1:31 PM [facility] Monocytes Relative 9.9 % LAB HEMETOLOGY METHOD 02/03/2025 1:31 PM [facility] Eosinophils Relative 1.5 % LAB HEMETOLOGY METHOD 02/03/2025 1:31 PM [facility] Basophils Relative 1.1 % LAB HEMETOLOGY METHOD 02/03/2025 1:31 PM [facility] Immature Granulocytes Relative 0.3 % LAB HEMETOLOGY METHOD 02/03/2025 1:31 PM [facility] Neutrophils Absolute 3.07 1.50 - 7.00 K/mcL LAB HEMETOLOGY METHOD 02/03/2025 1:31 PM EST [facility] Lymphocytes Absolute 2.33 1.00 - 5.00 K/mcL LAB HEMETOLOGY METHOD 02/03/2025 1:31 PM EST [facility] Monocytes Absolute 0.61 0.20 - 1.00 K/mcL LAB HEMETOLOGY METHOD 02/03/2025 1:31 PM EST [facility] Eosinophils Absolute 0.09 0.00 - 0.50 K/[facility] LAB HEMETOLOGY METHOD 02/03/2025 1:31 PM EST [facility] Basophils Absolute 0.07 0.00 - 0.20 K/[facility] LAB HEMETOLOGY METHOD 02/03/2025 1:31 PM [facility] Immature Granulocytes Absolute 0.02 0.00 - 0.03 K/mcL LAB HEMETOLOGY METHOD 02/03/2025 1:31 PM EST [facility] Blood Venous blood specimen / Unknown Venipuncture / Unknown 02/03/2025 9:28 AM EST 02/03/2025 9:28 AM EST us Rodo AGUILAR LAB BLOOD ORDERABLES Final Res ult [facility] [address] [place] [address], * (ABNORMAL) Comprehensive metabolic panel (02/03/2025 9:28 AM EST) Sodium 138 133 - 145 mmol/L LAB CHEMISTRY METHOD 02/03/2025 1:20 PM EST [facility] Potassium 4.7 3.5 - 5.5 mmol/L LAB CHEMISTRY METHOD 02/03/2025 1:20 PM EST [facility] Chloride 104 96 - 110 mmol/L LAB CHEMISTRY METHOD 02/03/2025 1:20 PM EST [facility] CO2 30 21 - 32 mmol/L LAB CHEMISTRY METHOD 02/03/2025 1:20 PM [facility] Anion Gap 4 3 - 11 LAB CHEMISTRY METHOD 02/03/2025 1:20 PM [facility] Glucose 137(H) 70 - 100 mg/dL LAB CHEMISTRY METHOD 02/03/2025 1:20 PM [facility] BUN 12 5 - 25 mg/dL LAB CHEMISTRY METHOD 02/03/2025 1:20 PM [facility] Creatinine 1.17 0.70 - 1.30 mg/dL LAB CHEMISTRY METHOD 02/03/2025 1:20 PM [facility] eGFR 72 >=60 mL/min/1. 73m2 LAB CHEMISTRY METHOD 02/03/2025 1:20 PM [facility] Comment:Calculation based on the Chronic Kidney Disease Epidemiology Collaboration (CKD-EPI) equation refit without adjustment for race. BUN/Creatinine Ratio 10.3 LAB CHEMISTRY METHOD 02/03/2025 1:20 PM [facility] Calcium 8.8 8.5 - 10.5 mg/dL LAB CHEMISTRY METHOD 02/03/2025 1:20 PM [facility] AST (SGOT) 82(H) 10 - 42 unit/L LAB CHEMISTRY METHOD 02/03/2025 1:20 PM [facility] ALT (SGPT) 141(H) 10 - 60 unit/L LAB CHEMISTRY METHOD 02/03/2025 1:20 PM [facility] Alkaline Phosphatase 81 42 - 121 unit/L LAB CHEMISTRY METHOD 02/03/2025 1:20 PM [facility] Total Protein 7.7 6.0 - 8.0 g/dL LAB CHEMISTRY METHOD 02/03/2025 1:20 PM [facility] Albumin 4.1 3.2 - 5.0 g/dL LAB CHEMISTRY METHOD 02/03/2025 1:20 PM [facility] Total Bilirubin 0.7 0.0 - 1.4 mg/dL LAB CHEMISTRY METHOD 02/03/2025 1:20 PM EST [facility] Blood Venous blood specimen / Unknown Venipuncture / Unknown 02/03/2025 9:28 AM EST 02/03/2025 9:28 AM EST us Rodo AGUILAR LAB BLOOD ORDERABLES Final Res ult [facility] [address] [place] [address], * Cardiac device check - Remote- MURJ (12/12/2024 5:09 AM EDT) Only the most recent of2 resultswithin the time period is included. Date Time Interrogation Session [id number] CV DEVICE CHECK Type Interrogation Session Remote CV DEVICE CHECK Implantable Pulse Generator Erosion Control Specialist MDT CV DEVICE CHECK Implantable Pulse Generator Type IPG CV DEVICE CHECK Implantable Pulse Generator Model [place] XT DR MRI [id number] CV DEVICE CHECK Implantable Pulse Generator Serial Number [id number] CV DEVICE CHECK Implantable Pulse Generator Implant Date 20220401 CV DEVICE CHECK Battery Remaining Longevity 111.0 CV DEVICE CHECK Battery Voltage 3.010 CV D EVICE CHECK Battery NIGHT FILLER Trigger 2.625 CV DEVICE CHECK Battery Status Middle of Service CV DEVICE CHECK Rogelio Statistic RA Percent Paced 38.52 CV DEVICE CHECK Rogelio Statistic RV Percent Paced 99.99 CV DEVICE CHECK Atrial Tachy Statistic AT/AF [place] Percent 0.00 CV DEVICE CHECK Lead Channel [...] CARDIAC DEV ICE PROCEDURES Final Result * Colonoscopy (08/08/2023) Colonoscopy Abstracted, no interpretation Anatomical Region Laterality Modality Other Historical Provider HEALTH MAINTENANCE Final Result * Hepatitis C Screening (08/11/1999) Hepatitis C Screening Abstracted Historical Provider HEALTH MAINTENANCE Final Result from Last 3 Months or Most Recently Relevant to Health Maintenance Insurance Care Teams Agricultural Researcher Relationship Specialty Start Date End Date Nabil Blanco MD [address] [place] [id number] PCP - General 07/05/99
== END 2025-02-03 11:33 | disposition home or self-care (01) ==
LOC: HO.HMGAL 11:32
PROVIDERS: PCP Pediatrics; Visit Provider Registered Nurse Emergency
DX: J30.89 Other allergic rhinitis (principal)
CPT/HCPCS: 95117; 95165

== ENCOUNTER 2025-02-12 13:59 | Outpatient (AMB) | payer OTHER, SELFPAY ==
--- OUTSIDE RECORDS SUMMARY | 2025-01-14 10:20 | XMS_ITS | Encounter Summary ---
Author Organization [facility] Address [address] [place] [address] Care Team Providers Care Aluminum Siding Mechanic Name Role Phone Nabil Blanco MD Primary Care Provider [phone] Reason for Visit * Reason Comments Follow-up Encounter Details Date Type Department Care Team (Late st Contact Info) Description 01/14/2025 11:20 AM EDT Office Visit [facility] [place] [address] [place] [phone] Chucky Snow MD [address] [place] [address] [address] [place] [address] VT (ventricular tachycardia) (CMS/HCC V24, CMS/HCC V28) (Primary Dx); Aneurysm of ascending aorta without rupture (CMS/HCC V24); Nonrheumatic aortic valve stenosis Social History Tobacco Use Types Packs/Day Years [...] for your loved ones. For example, child adolescent care or elderly care for an older adult? [...] EST Travel History Travel Start Travel End [place] 01/27/2025 01/30/2025 [place] 01/21/2025 01/24/2025 documented as of this encounter Last Filed Vital Signs Vital Sign Reading Time Taken Comments Blood Pressure 130/82 01/14/2025 11:27 AM EDT Pulse 82 01/14/2025 11:27 AM EDT Temperature - - Respiratory Rate - - Oxygen Saturation 97% 01/14/2025 11:27 AM EDT Inhaled Oxygen Concentration - - Weight 150 kg (330 lb) 01/14/2025 11:27 AM EDT Height 185.4 cm (6' 1 ) 01/14/2025 11:27 AM EDT Body Mass Index 43.54 01/14/2025 11:27 AM EDT documented in this encounter Progress Notes * Chucky Snow MD - 01/14/2025 11:20 AM EDTAssociated Problem(s): VT (ventricular tachycardia) (CMS/HCC V24, CMS/HCC V28) Orders: ECG 12 lead * Chucky Snow MD - 01/14/2025 11:20 AM EDTAssociated Problem(s): Aortic aneurysm, thoracic (CMS/HCC V24) * Chucky Snow MD - 01/14/2025 11:20 AM EDTAssociated Problem(s): Aortic stenosis documented in this encounter Plan of Treatment Upcoming Encounters Date Type Department Care Team (Late st Contact Info) Description 05/08/2025 2:30 PM EST Ancillary Procedure [facility] - [address] [place] [phone] Pending Results Name Type Priority Associated Diagnoses Date /Time ECG 12 lead ECG Routine VT (ventricular tachycardia) (CMS/HCC V24, CMS/HCC V28) 01/14/2025 11:34 AM EDT documented as of this encounter Procedures Procedure Name Priority Date/Time Associated Diagnosis Comments ECG 12-LEAD Routine 01/14/2025 11:34 AM EDT [place]) [place] [place] [facility] V28) documented in this encounter Visit Diagnoses Diagnosis VT (ventricular tachycardia) ([facility] V24, [facility] V28)- Primary Paroxysmal ventricular tachycardia Aneurysm of ascending aorta without rupture ([facility] V24) Nonrheumatic aortic valve stenosis Encounter for adjustment or management of cardiac device documented in this encounter Additional Health Concerns Assessment Noted Time PHQ-9 Depression Total Score: 0 08/28/19 25 10:16 AM EDT documented as of this encounter Care Teams Aluminum Siding Mechanic Relationship Specialty Start Date End Date Nabil Blanco MD [address] [place] [id number] PCP - General 07/05/99 documented as of this encounter
--- OUTSIDE RECORDS SUMMARY | 2025-02-07 10:30 | XMS_ITS | Encounter Summary ---
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 The following was reviewed: Immunization verified as PCV20 in [employer]: yes Immunization tab reviewed: If previous immunization of Pneumococcal vaccine noted in Immunization tab, order and time interval confirmed with provider: yes Female patient under 55 years old: Last LMP confirmed. If - may be able to receive immunization- check with provider Confirmed that patient is not receiving Shingrix on same day or within 28 days of the PPSV23: yes Patient: The following questions were reviewed with the patient: The patient acknowledges that they will be receiving the pneumococcal vaccine: yes Denies allergy or reaction to previous Pneumococcal vaccine or Diptheria toxoid: yes Acknowledges reviewing the VIS for PPSV23, for PCV13, or for PCV20 (copy made available): yes Denies moderate or severe illness or fever of >100 degrees F: yes Patient agrees to wait in the office for 20 minutes after receiving the injection: yes Pneumococcal vaccine administered: PCV20. See Imm/Inj tab Electronically signed by: Nayely Jansen LPN 02/07/2025 10:35 AM EST documented in this encounter Plan of Treatment Upcoming Encounters Date Type Department Care Team (Late st Contact Info) Description 05/08/2025 2:30 PM EST Ancillary Procedure [facility] - [facility] [address] [facility] [address] [place] [address] documented as of this encounter Visit Diagnoses Diagnosis Need for vaccination against Streptococcus pneumoniae Encounter for adjustment or management of cardiac device documented in this encounter Orders Immunization/Injection Count Last Ordered Date First Ordered Date PNEUMOCOCCAL CONJUGATE 20 VA LENT (PREVNAR 20, PCV 20) 2MO AND OLDER 1 02/07/2025 documented in this encounter Additional Health Concerns Assessment Noted Time PHQ-9 Depression Total Score: 0 08/28/19 25 10:16 AM EDT documented as of this encounter Care Teams Rehab Liaison Relationship Specialty Start Date End Date Nabil Blanco MD [address] [place] [address] [place] [address] PCP - General 07/05/99 documented as of this encounter
--- OUTSIDE RECORDS SUMMARY | 2025-02-12 17:13 | XMS_ITS | Encounter Summary ---
Author Organization [facility] [place] [address] Care Team Providers Care Chemistry Account Manager Name Role Phone Nabil Blanco MD Primary Care Provider [phone] Encounter Details Date Type Department Care Team ([facility] st Contact Info) Description 02/03/2025 Results Follow-Up Adult [facility] [address] [place] [address] Rodo Chandler PA [address] [place] [address] Social History Tobacco Use Types Packs/Day Years [...] care for your loved ones. 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 Not on file Not on file Travel History Travel Start Travel End [place] 01/27/2025 01/30/2025 [place] 01/21/2025 01/24/2025 documented as of this encounter Plan of Treatment Upcoming Encounters Date Type Department Care Team (Late st Contact Info) Description 05/08/2025 2:30 PM EST Ancillary Procedure [facility] - [address] [place] [phone] documented as of this encounter Visit Diagnoses Not on filedocumented in this encounter Additional Health Concerns Assessment Noted Time PHQ-9 Depression Total Score: 0 08/28/19 25 10:16 AM EDT documented as of this encounter Care Teams Chemistry Account Manager Relationship Specialty Start Date End Date Nabil Blanco MD [address] [place] [id number] PCP - General 07/05/99 documented as of this encounter
--- OUTSIDE RECORDS SUMMARY | 2025-02-12 17:13 | XMS_ITS | Clinical Summary ---
Author Organization [address] [place] [address] [place] [phone] Phone Care Team Providers Care Master Chef Name Role Phone Nabil Blanco MD Primary Care Provider [phone] Allergies Active Allergy Reactions Criticality Noted Date [...] crush or chew. 90 each 1 01/06/2025 Active cetirizine (ZyrTEC) 10 mg tablet Take 1 tablet (10 mg total) by mouth 1 (one) time each day. Active tirzepatide, weight loss, (Zepbound) 2.5 mg/0.5 mL injectionIndica tions:JARED (obstructive sleep apnea) Inject 0.5 mL (2.5 mg total) under the skin every 7 (seven) days. 2 mL 02/03/2025 03/05/20 25 Active Active Problems Problem Noted Date Diagnosed Date Seasonal allergies 02/03/2025 Pacemaker 12/23/2024 Class 3 severe obesity due t o excess calories with serious comorbidity and body mass index (BMI) of 40.0 to 44.9 in adult (CMS/HCC V24, CMS/HCC V28) 05/23/2024 VT (ventricular tachycardia) (CMS/[facility] V24, [facility]/H [facility] V28) 05/09/2023 Overview (02/19/2024): Last Assessment [...] been attempting to contact sleep medicine of [facility] multiple times and unable to reach someone to assist him to arrange CPAP and titration study. He will reach out to sleep medicine services of [facility] to ensure the patient can obtain CPAP as soon as possible. Assessment & Plan (01/14/2025 11:47 AM EDT): Orders: ECG 12 lead JARED (obstructive sleep apnea) 08/18/2022 Overview (02/19/2024): 08/23 severe S/P placement of cardiac pacemaker 04/28/2022 Overview (01/07/2025): Done at [facility] on 04/01/22 with SR - Indications: Mobitz [...] for his pacemaker type. Aortic aneurysm, thoracic ([facility] V24) 03/07/20 Overview (10/22/2024): 04/25 4.1 02/23--4.2 [...] Encounters Date Type Department Care Team Description 02/07/2025 10:30 AM EST Clinical Support [facility] - [address] [phone] Nayely Jansen LPN Need for vaccination against Streptococcus pneumoniae 02/03/2025 9:30 AM EST Lab Draw Station - [address] [phone] Screening, anemia, deficiency, iron; Screening, lipid; JARED (obstructive sleep apnea); Class 3 severe obesity due to excess calories with serious comorbidity and body mass index (BMI) of 40.0 to 44.9 in adult (CMS/HCC V24, CMS/HCC V28); Nonspecific elevation of levels of transaminase or lactic acid dehydrogenase (LDH); Screening for prostate cancer 02/03/2025 8:30 AM EST Office Visit [address] [phone] Rodo Chandler PA Adult general medical examination [...] for vaccination against Streptococcus pneumoniae; Seasonal allergies 02/03/2025 Results Follow-Up [address] [phone] Rodo Chandler PA 01/14/2025 11:20 AM EDT Office Visit [facility] [address] [place] [address] Chucky Snow MD VT (ventricular tachycardia) ([facility] V24, CMS/[facility] V28) (Primary Dx); Aneurysm of ascending aorta without rupture ([facility] V24); Nonrheumatic aortic valve stenosis 01/06/2025 Telephone [facility] [address] [place] [address] Chucky Snow MD 01/02/2025 11:00 AM EDT Office Visit Adult Medicine [facility] [address] [place] [phone] Nabil Blanco MD Vertigo (Primary Dx) 12/25/2024 Telephone Adult [facility] [address] [place] [phone] Alec Marrero RN 12/24/2024 Telephone Adult [address] [phone] Nabil Blanco MD 12/20/2024 Telephone [facility] [address] [place] [address] Chucky Snow MD 12/12/2024 5:10 AM EDT Ancillary Procedure [facility] [address] [place] [address] 11/18/2024 3:15 AM EDT Ancillary Procedure [facility] [address] [place] [address] from Last 3 Months Immunizations Immunization Administration [...] preservative (Fluzone; Afluria) 6mo and older 04/20/2016,02/07/2012,12/19/2008 Pneumococcal conjugate 20 va lent (Prevnar 20, PCV 20) 2mo and older 02/07/2025 Tdap Tetanus diptheria acell ular pertussis (Boostrix; Adacel) 7yo and older 03/24/2022,04/20/2016,06/08/2006 Zoster recombinant (Shingrix ) 19yo and older 10/11/2021,04/18/2021 Surgical History Surgery Date Site/Laterality Comments COLONOSCOPY 09/07/06, [facility] PROCEDURE: CT COLONOSCOPY STOMA DX INCLUDING COLLJ SPEC SPX; COMMENT: Normal: repeat in five years COLONOSCOPY 10/12/2014 PROCEDURE: CT COLONOSCOPY STOMA W/RMVL JAMESON POLYP/OTH LES SNARE; [...] 75) Maternal Grandfather Maternal Grandmother Mother Isatu Munson Alive Paternal Grandfather Paternal Grandmother Sister 1 [...] for your loved ones. For example, children's tutor nursery or elderly care for an older adult? 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 [employer] Not on file Not on file Not on file Travel History Travel Start Travel End [place] 01/27/2025 01/30/2025 [place] 01/21/2025 01/24/2025 Obstetrics History Last Filed Vital Signs Vital Sign Reading Time Taken Comments Blood Pressure 138/87 02/03/2025 8:42 AM EST Pulse 76 02/03/2025 8:42 AM EST Temperature 37.1 C (98.7 F) 02/07/2025 10:36 [...] Description 05/08/2025 2:30 PM EST Ancillary Procedure [facility] - [address] [place] [address] Health Maintenance Due Date Last Done Comments RSV Immunization Adult Patients (1 - Risk 50-74 years 1-dose series) 09/05/2015 Social Influencers of Health Screening 02/03/2026 02/03/2025 Colorectal Cancer Screening: Colonoscopy 08/07/2028 08/08/2023 Cholesterol Screening (Lipid Panel) 02/03/2030 02/03/2025, 03/05/2024, 02/13/2023 DTaP,Tdap,and Td Vaccines (4 - Td or Tdap) 03/24/2032 03/24/2022, 04/20/2016, 06/08/2006 Hepatitis C Screening Completed 08/11/1999 Zoster Vaccines Completed 10/11/2021, 04/18/2021 Depression Screening Completed 08/27/2024 COVID-19 Vaccine Completed 12/26/2024, , 02/03/2023, Additional history exists Influenza Vaccine Completed 12/26/2024, , 02/10/2023, Additional history exists Pneumococcal Vaccine: 50+ Years Completed 02/07/2025 HIB Vaccines Aged Out No longer eligi [...] this topic Medical Devices Implanted Type Area Federal Aid Coordinator Device Identifier Shelf Expiration Date Model / Serial / Lot Medt-Card Dejah Xt Dr Renee [id number] Implanted: (Quantity not on file) Cardiac Pacemaker [employer] - CARDIAC RHYTH-CRDM DEJAH XT DR RENEE [id number] / [id number] / Medt-Card [place] Xt Dr Renee [id number] Implanted: (Quantity not on file) Cardiac Pacemaker [employer] - CARDIAC RHYTH-CRDM DEJAH XT DR RENEE / [id number] / Procedures Procedure Name Priority Date/Time Associated Diagnosis Comments CBC WITH AUTO DIFFERENTIAL Routine 02/03/2025 9:28 AM EST Screening, anemia, deficiency, iron PROSTATE SPECIFIC ANTIGEN SCREEN Routine 02/03/2025 9:28 AM EST Screening for prostate cancer COMPREHENSIVE METABOLIC PANEL Routine 02/03/2025 9:28 AM [...] REMOTE- MURJ Routine 11/18/2024 3:12 AM EDT COLONOSCOPY Routine 08/08/2023 HEPATITIS C SCREENING Routine 08/11/1999 from Last 3 Months or Most Recently Relevant to Health Maintenance Results * Prostate specific antigen screen (02/03/2025 9:28 AM EST) PSA 0.94 0.00 - 4.00 ng/mL LAB CHEMISTRY METHOD 02/03/2025 2:44 PM EST [facility] Blood Venous blood specimen / Unknown Venipuncture / Unknown 02/03/2025 9:28 AM EST 02/03/2025 9:28 AM EST Narrative [facility] - 02/03/2025 2:44 PM EST The Siemens Advia Centaur Chemiluminescent Immunoassay is used. Results obtained with different assay methods or kits cannot be used interchangeably. Results cannot be interpreted as absolute evidence of the presence or absence of malignant disease. us Rodo AGUILAR LAB BLOOD ORDERABLES Final Res ult [facility] [address] [place] [address], [place] [phone] * Lipid panel with reflex to direct LDL (02/03/2025 9:28 AM EST) Cholesterol 151 0 - 200 mg/dL LAB CHEMISTRY METHOD 02/03/2025 1:20 PM EST [facility] Triglycerides 93 0 - 150 mg/dL LAB CHEMISTRY METHOD 02/03/2025 1:20 PM EST [facility] HDL 56 >=40 mg/dL LAB CHEMISTRY METHOD 02/03/2025 1:20 PM EST [facility] LDL Calculated 76 0 - 100 mg/dL LAB CHEMISTRY METHOD 02/03/2025 1:20 PM EST [facility] Comment:Estimated LDL Calcul ated using equation: Total cholesterol - HDL cholesterol - (Triglycerides/5) VLDL Cholesterol Santiago 18.6 mg/dL LAB CHEMISTRY METHOD 02/03/2025 1:20 PM EST [facility] Non HDL Chol. (LDL+VLDL) 95 <145 mg/dL LAB CHEMISTRY METHOD 02/03/2025 1:20 PM EST [facility] Chol/HDL Ratio 2.7 0.0 - 4.4 LAB CHEMISTRY METHOD 02/03/2025 1:20 PM [facility] Blood Venous blood specimen / Unknown Venipuncture / Unknown 02/03/2025 9:28 AM EST 02/03/2025 9:28 AM EST us Rodo AGUILAR LAB BLOOD ORDERABLES Final Res ult [facility] [address] [place] [address], * CBC auto differential (02/03/2025 9:28 AM EST) WBC 6.2 4.8 - 10.8 K/mcL LAB HEMETOLOGY METHOD 02/03/2025 1:31 PM [facility] RBC 5.50 4.50 - 5.50 M/mcL LAB HEMETOLOGY METHOD 02/03/2025 1:31 PM [facility] Hemoglobin 15.8 13.5 - 17.5 g/dL LAB HEMETOLOGY METHOD 02/03/2025 1:31 PM [facility] Hematocrit 48.7 42.0 - 54.0 % LAB HEMETOLOGY METHOD 02/03/2025 1:31 PM [facility] MCV 88.1 79.0 - 98.0 FL LAB HEMETOLOGY METHOD 02/03/2025 1:31 PM [facility] MCH 28.6 27.0 - 32.0 pcg LAB HEMETOLOGY METHOD 02/03/2025 1:31 PM [facility] MCHC 32.4 32.0 - 37.0 g/dL LAB HEMETOLOGY METHOD 02/03/2025 1:31 PM [facility] RDW 13.2 11.0 - 15.0 % LAB HEMETOLOGY METHOD 02/03/2025 1:31 PM [facility] Platelets 201 130 - 400 K/mcL LAB HEMETOLOGY METHOD 02/03/2025 1:31 PM [facility] MPV 10.2 7.0 - 11.0 FL LAB HEMETOLOGY METHOD 02/03/2025 1:31 PM [facility] NRBC 0.0 <1.0 % LAB HEMETOLOGY METHOD 02/03/2025 1:31 PM [facility] NRBC Absolute 0.00 <0.10 K/mcL LAB HEMETOLOGY METHOD 02/03/2025 1:31 PM [facility] Neutrophils Relative 49.6 % LAB HEMETOLOGY METHOD 02/03/2025 1:31 PM [facility] Lymphocytes Relative 37.6 % LAB HEMETOLOGY METHOD 02/03/2025 1:31 PM [facility] Monocytes Relative 9.9 % LAB HEMETOLOGY METHOD 02/03/2025 1:31 PM [facility] Eosinophils Relative 1.5 % LAB HEMETOLOGY METHOD 02/03/2025 1:31 PM [facility] Basophils Relative 1.1 % LAB HEMETOLOGY METHOD 02/03/2025 1:31 PM [facility] Immature Granulocytes Relative 0.3 % LAB HEMETOLOGY METHOD 02/03/2025 1:31 PM [facility] Neutrophils Absolute 3.07 1.50 - 7.00 K/mcL LAB HEMETOLOGY METHOD 02/03/2025 1:31 PM [facility] Lymphocytes Absolute 2.33 1.00 - 5.00 K/mcL LAB HEMETOLOGY METHOD 02/03/2025 1:31 PM [facility] Monocytes Absolute 0.61 0.20 - 1.00 K/mcL LAB HEMETOLOGY METHOD 02/03/2025 1:31 PM [facility] Eosinophils Absolute 0.09 0.00 - 0.50 K/mcL LAB HEMETOLOGY METHOD 02/03/2025 1:31 PM [facility] Basophils Absolute 0.07 0.00 - 0.20 K/mcL LAB HEMETOLOGY METHOD 02/03/2025 1:31 PM [facility] Immature Granulocytes Absolute 0.02 0.00 - 0.03 K/mcL LAB HEMETOLOGY METHOD 02/03/2025 1:31 PM [facility] Blood Venous blood specimen / Unknown Venipuncture / Unknown 02/03/2025 9:28 AM EST 02/03/2025 9:28 AM EST us Rodo AGUILAR LAB BLOOD ORDERABLES Final Res ult [facility] [address] [place] [address], [place] [phone] * (ABNORMAL) Comprehensive metabolic panel (02/03/2025 9:28 AM EST) Sodium 138 133 - 145 mmol/L LAB CHEMISTRY METHOD 02/03/2025 1:20 PM [facility] Potassium 4.7 3.5 - 5.5 mmol/L LAB CHEMISTRY METHOD 02/03/2025 1:20 PM [facility] Chloride 104 96 - 110 mmol/L LAB CHEMISTRY METHOD 02/03/2025 1:20 PM [facility] CO2 30 21 - 32 mmol/L LAB CHEMISTRY METHOD 02/03/2025 1:20 PM [facility] Anion Gap 4 3 - 11 LAB CHEMISTRY METHOD 02/03/2025 1:20 PM [facility] Glucose 137(H) 70 - 100 mg/dL LAB CHEMISTRY METHOD 02/03/2025 1:20 PM [facility] BUN 12 5 - 25 mg/dL LAB CHEMISTRY METHOD 02/03/2025 1:20 PM [facility] Creatinine 1.17 0.70 - 1.30 mg/dL LAB CHEMISTRY METHOD 02/03/2025 1:20 PM [facility] eGFR 72 >=60 mL/min/1. 73m2 LAB CHEMISTRY METHOD 02/03/2025 1:20 PM [facility] Comment:Calculation based on the Chronic Kidney Disease Epidemiology Collaboration (CKD-EPI) equation refit without adjustment for race. BUN/Creatinine Ratio 10.3 LAB CHEMISTRY METHOD 02/03/2025 1:20 PM [facility] Calcium 8.8 8.5 - 10.5 mg/dL LAB CHEMISTRY METHOD 02/03/2025 1:20 PM [facility] AST (SGOT) 82(H) 10 - 42 unit/L LAB CHEMISTRY METHOD 02/03/2025 1:20 PM [facility] ALT (SGPT) 141(H) 10 - 60 unit/L LAB CHEMISTRY METHOD 02/03/2025 1:20 PM [facility] Alkaline Phosphatase 81 42 - 121 unit/L LAB CHEMISTRY METHOD 02/03/2025 1:20 PM [facility] Total Protein 7.7 6.0 - 8.0 g/dL LAB CHEMISTRY METHOD 02/03/2025 1:20 PM [facility] Albumin 4.1 3.2 - 5.0 g/dL LAB CHEMISTRY METHOD 02/03/2025 1:20 PM [facility] Total Bilirubin 0.7 0.0 - 1.4 mg/dL LAB CHEMISTRY METHOD 02/03/2025 1:20 PM [facility] Blood Venous blood specimen / Unknown Venipuncture / Unknown 02/03/2025 9:28 AM EST 02/03/2025 9:28 AM EST us Rodo AGUILAR LAB BLOOD ORDERABLES Final Res ult [facility] [address] [place] [address], * Cardiac device check - Remote- MURJ (12/12/2024 5:09 AM EDT) Only the most recent of2 resultswithin the time period is included. Date Time Interrogation Session [id number] CV DEVICE CHECK Type Interrogation Session Remote CV DEVICE CHECK Implantable Pulse Generator Federal Aid Coordinator MDT CV DEVICE CHECK Implantable Pulse Generator Type IPG CV DEVICE CHECK Implantable Pulse Generator Model Dejah XT DR MRI [id number] CV DEVICE CHECK Implantable Pulse Generator Serial Number [id number] CV DEVICE CHECK Implantable Pulse Generator Implant Date 20220401 CV DEVICE CHECK Battery Remaining Longevity 111.0 CV DEVICE CHECK Battery Voltage 3.010 CV D EVICE CHECK Battery DEHYDRATOR TENDER Trigger 2.625 CV DEVICE CHECK Battery Status Middle of Service CV DEVICE CHECK Rogelio Statistic RA Percent Paced 38.52 CV DEVICE CHECK Rogelio Statistic RV Percent Paced 99.99 CV DEVICE CHECK Atrial Tachy Statistic AT/AF Lagrange Percent 0.00 CV DEVICE CHECK Lead Channel [...] ICE PROCEDURES Final Result * Colonoscopy (08/08/2023) Pathologist [facility] Colonoscopy Abstracted, no interpretation Anatomical Region Laterality Modality Other Historical Provider HEALTH MAINTENANCE Final Result * Hepatitis C Screening (08/11/1999) Pathologist [facility] Hepatitis C Screening Abstracted Historical Provider HEALTH MAINTENANCE Final Result from Last 3 Months or Most Recently Relevant to Health Maintenance Insurance Care Teams Master Chef Relationship Specialty Start Date End Date Nabil Blanco MD [address] [place] [id number] PCP - General 07/05/99
== END 2025-02-12 14:00 | disposition home or self-care (01) ==
LOC: HO.HMGAL 13:59
PROVIDERS: PCP Pediatrics; Visit Provider Registered Nurse Emergency
DX: J30.89 Other allergic rhinitis (principal)
CPT/HCPCS: 95117; 95165

== ENCOUNTER 2025-02-24 11:23 | Outpatient (AMB) | payer OTHER, SELFPAY ==
--- OUTSIDE RECORDS SUMMARY | 2025-02-24 14:59 | XMS_ITS | Clinical Summary ---
Author Organization [address] [place] [address] [place] [phone] Phone Care Team Providers Care Director Funds Development Name Role Phone Nabil Blanco MD Primary Care Provider [phone] Allergies Active Allergy Reactions Criticality Noted Date [...] VT (ventricular tachycardia) (CMS/[facility] V24, [facility]/H CC V28) 05/09/2023 Overview (02/19/2024): Last [...] been attempting to contact sleep medicine of [facility] multiple times and unable to reach someone to assist him to arrange CPAP and titration study. He will reach out to sleep medicine services of [facility] to ensure the patient can obtain CPAP as soon as possible. Assessment & Plan (01/14/2025 11:47 AM EDT): Orders: ECG 12 lead JARED (obstructive sleep apnea) 08/18/2022 Overview (02/19/2024): 08/23 severe S/P placement of cardiac pacemaker 04/28/2022 Overview (01/07/2025): Done at [facility] on 04/01/22 with SR - Indications: [...] for his pacemaker type. Aortic aneurysm, thoracic ([facility] V24) 03/07/20 Overview (10/22/2024): [...] Description 02/07/2025 10:30 AM EST Clinical Support [facility] - [address] [phone] Nayely Jansen LPN Need for vaccination against Streptococcus pneumoniae 02/03/2025 9:30 AM EST Lab Draw Station - [address] [address] Screening, anemia, deficiency, iron; Screening, lipid; JARED (obstructive sleep apnea); Class 3 severe obesity due to excess calories with serious comorbidity and body mass index (BMI) of 40.0 to 44.9 in adult (CMS/HCC V24, CMS/HCC V28); Nonspecific elevation of levels of transaminase or lactic acid dehydrogenase (LDH); Screening for prostate cancer 02/03/2025 8:30 AM EST Office Visit [address] [address] Rodo Chandler PA Adult general medical examination [...] Streptococcus pneumoniae; Seasonal allergies 02/03/2025 Results Follow-Up [address] [phone] Rodo Chandler PA 01/14/2025 11:20 AM EDT Office Visit [facility] [address] [place] [address] Ayleen Robledo MD VT (ventricular tachycardia) ([facility] V24, [facility] V28) (Primary Dx); Aneurysm of ascending aorta without rupture ([facility] V24); Nonrheumatic aortic valve stenosis 01/06/2025 Telephone [facility] [address] [place] [phone] Ayleen Robledo MD 01/02/2025 11:00 AM EDT Office Visit Adult [facility] [address] [place] [phone] Nabil Blanco MD Vertigo (Primary Dx) 12/25/2024 [facility]phone [facility] [address] [place] [phone] Alec Marrero RN 12/24/2024 [facility]phone [facility] [address] [place] [phone] Nabil Blanco MD 12/20/2024 Telephone [facility] [address] [place] [address] Ayleen Robledo MD 12/12/2024 5:10 AM EDT Ancillary Procedure [facility] [address] [place] [phone] from Last 3 Months Immunizations Immunization Administration [...] History Surgery Date Site/Laterality Comments COLONOSCOPY 09/07/06, [facility] PROCEDURE: ND COLONOSCOPY STOMA DX INCLUDING COLLJ SPEC SPX; COMMENT: Normal: repeat in five years COLONOSCOPY 10/12/2014 PROCEDURE: ND COLONOSCOPY STOMA W/RMVL JAMESON POLYP/OTH LES SNARE; [...] ones. For example, child and family services worker or elderly care for an older adult? 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[employer] Not on file Not on file Not on file Travel History Travel Start Travel End [place] 01/27/2025 01/30/2025 [place] 01/21/2025 01/24/2025 Obstetrics History Last Filed Vital [...] Description 05/08/2025 2:30 PM EST Ancillary Procedure [facility] - [address] [place] [address] Health Maintenance Due Date Last [...] this topic Medical Devices Implanted Type Area Amusement Centre Manager Device Identifier Shelf Expiration Date Model / Serial / Lot Medt-Card Dejah Xt Dr Renee [id number] Implanted: (Quantity not on file) Cardiac Pacemaker [employer] - CARDIAC RHYTH-CRDM DEJAH XT DR RENEE [id number] / [id number] / Medt-Card Dejah Xt Dr Renee [id number] Implanted: (Quantity not on file) Cardiac Pacemaker [employer] - CARDIAC RHYTH-CRDM DEJAH XT DR RENEE / [id number] / Procedures Procedure Name Priority Date/Time Associated [...] REMOTE- MURJ Routine 12/12/2024 5:09 AM EDT HM COLONOSCOPY Routine 08/08/2023 HEPATITIS C SCREENING Routine 08/11/1999 from Last 3 Months or Most Recently Relevant to Health Maintenance Results * Prostate specific antigen screen (02/03/2025 9:28 AM EST) PSA 0.94 0.00 - 4.00 ng/mL LAB CHEMISTRY METHOD 02/03/2025 2:44 PM EST [facility] Blood Venous blood specimen / Unknown Venipuncture / Unknown 02/03/2025 9:28 AM EST 02/03/2025 9:28 AM EST Narrative [facility] - 02/03/2025 2:44 PM EST The Siemens Advia Centaur Chemiluminescent Immunoassay is used. Results obtained with different assay methods or kits cannot be used interchangeably. Results cannot be interpreted as absolute evidence of the presence or absence of malignant disease. Rodo AGUILAR LAB BLOOD ORDERABLES Final Res ult [facility] [address] [place] [address], [place] [phone] * Lipid panel with reflex to direct LDL (02/03/2025 9:28 AM EST) Cholesterol 151 0 - 200 mg/dL LAB CHEMISTRY METHOD 02/03/2025 1:20 PM EST [facility] Triglycerides 93 0 - 150 mg/dL LAB CHEMISTRY METHOD 02/03/2025 1:20 PM EST [facility] HDL 56 >=40 mg/dL LAB CHEMISTRY METHOD 02/03/2025 1:20 PM [facility] LDL Calculated 76 0 - 100 mg/dL LAB CHEMISTRY METHOD 02/03/2025 1:20 PM [facility] Comment:Estimated LDL Calcul ated using equation: Total cholesterol - HDL cholesterol - (Triglycerides/5) VLDL Cholesterol Santiago 18.6 mg/dL LAB CHEMISTRY METHOD 02/03/2025 1:20 PM EST [facility] Non HDL Chol. (LDL+VLDL) 95 <145 mg/dL LAB CHEMISTRY METHOD 02/03/2025 1:20 PM [facility] Chol/HDL Ratio 2.7 0.0 - 4.4 LAB CHEMISTRY METHOD 02/03/2025 1:20 PM [facility] Blood Venous blood specimen / Unknown Venipuncture / Unknown 02/03/2025 9:28 AM EST 02/03/2025 9:28 AM EST Rodo AGUILAR LAB BLOOD ORDERABLES Final Res ult Performing Organization Address City/[facility] [address]/ZIP Co de Phone Number [facility] [address] [place] [address], [place] [phone] * CBC auto differential (02/03/2025 9:28 AM EST) [facility] WBC 6.2 4.8 - 10.8 K/mcL LAB HEMETOLOGY METHOD 02/03/2025 1:31 PM [facility] RBC 5.50 4.50 - 5.50 M/mcL LAB HEMETOLOGY METHOD 02/03/2025 1:31 PM [facility] Hemoglobin 15.8 13.5 - 17.5 g/dL LAB HEMETOLOGY METHOD 02/03/2025 1:31 PM [facility] Hematocrit 48.7 42.0 - 54.0 % LAB HEMETOLOGY METHOD 02/03/2025 1:31 PM [facility] MCV 88.1 79.0 - 98.0 FL LAB HEMETOLOGY METHOD 02/03/2025 1:31 PM [facility] MCH 28.6 27.0 - 32.0 pcg LAB HEMETOLOGY METHOD 02/03/2025 1:31 PM [facility] MCHC 32.4 32.0 - 37.0 g/dL LAB HEMETOLOGY METHOD 02/03/2025 1:31 PM [facility] RDW 13.2 11.0 - 15.0 % LAB HEMETOLOGY METHOD 02/03/2025 1:31 PM [facility] Platelets 201 130 - 400 K/mcL LAB HEMETOLOGY METHOD 02/03/2025 1:31 PM [facility] MPV 10.2 7.0 - 11.0 FL LAB HEMETOLOGY METHOD 02/03/2025 1:31 PM [facility] NRBC 0.0 <1.0 % LAB HEMETOLOGY METHOD 02/03/2025 1:31 PM [facility] NRBC Absolute 0.00 <0.10 K/mcL LAB HEMETOLOGY METHOD 02/03/2025 1:31 PM [facility] Neutrophils Relative 49.6 % LAB HEMETOLOGY METHOD 02/03/2025 1:31 PM [facility] Lymphocytes Relative 37.6 % LAB HEMETOLOGY METHOD 02/03/2025 1:31 PM [facility] Monocytes Relative 9.9 % LAB HEMETOLOGY METHOD 02/03/2025 1:31 PM [facility] Eosinophils Relative 1.5 % LAB HEMETOLOGY METHOD 02/03/2025 1:31 PM [facility] Basophils Relative 1.1 % LAB HEMETOLOGY METHOD 02/03/2025 1:31 PM [facility] Immature Granulocytes Relative 0.3 % LAB HEMETOLOGY METHOD 02/03/2025 1:31 PM [facility] Neutrophils Absolute 3.07 1.50 - 7.00 K/mcL LAB HEMETOLOGY METHOD 02/03/2025 1:31 PM [facility] Lymphocytes Absolute 2.33 1.00 - 5.00 K/mcL LAB HEMETOLOGY METHOD 02/03/2025 1:31 PM [facility] Monocytes Absolute 0.61 0.20 - 1.00 K/mcL LAB HEMETOLOGY METHOD 02/03/2025 1:31 PM [facility] Eosinophils Absolute 0.09 0.00 - 0.50 K/mcL LAB HEMETOLOGY METHOD 02/03/2025 1:31 PM [facility] Basophils Absolute 0.07 0.00 - 0.20 K/mcL LAB HEMETOLOGY METHOD 02/03/2025 1:31 PM [facility] Immature Granulocytes Absolute 0.02 0.00 - 0.03 K/mcL LAB HEMETOLOGY METHOD 02/03/2025 1:31 PM [facility] Blood Venous blood specimen / Unknown Venipuncture / Unknown 02/03/2025 9:28 AM EST 02/03/2025 9:28 AM EST us Rodo AGUILAR LAB BLOOD ORDERABLES Final Res ult [facility] [address] [place] [address], [place] [phone] * (ABNORMAL) Comprehensive metabolic panel (02/03/2025 9:28 AM EST) Pathologist [facility] Sodium 138 133 - 145 mmol/L LAB CHEMISTRY METHOD 02/03/2025 1:20 PM [facility] Potassium 4.7 3.5 - 5.5 mmol/L LAB CHEMISTRY METHOD 02/03/2025 1:20 PM [facility] Chloride 104 96 - 110 mmol/L LAB CHEMISTRY METHOD 02/03/2025 1:20 PM [facility] CO2 30 21 - 32 mmol/L LAB CHEMISTRY METHOD 02/03/2025 1:20 PM [facility] Anion Gap 4 3 - 11 LAB CHEMISTRY METHOD 02/03/2025 1:20 PM [facility] Glucose 137(H) 70 - 100 mg/dL LAB CHEMISTRY METHOD 02/03/2025 1:20 PM [facility] BUN 12 5 - 25 mg/dL LAB CHEMISTRY METHOD 02/03/2025 1:20 PM [facility] Creatinine 1.17 0.70 - 1.30 mg/dL LAB CHEMISTRY METHOD 02/03/2025 1:20 PM [facility] eGFR 72 >=60 mL/min/1. 73m2 LAB CHEMISTRY METHOD 02/03/2025 1:20 PM [facility] Comment:Calculation based on the Chronic Kidney Disease Epidemiology Collaboration (CKD-EPI) equation refit without adjustment for race. BUN/Creatinine Ratio 10.3 LAB CHEMISTRY METHOD 02/03/2025 1:20 PM [facility] Calcium 8.8 8.5 - 10.5 mg/dL LAB CHEMISTRY METHOD 02/03/2025 1:20 PM [facility] AST (SGOT) 82(H) 10 - 42 unit/L LAB CHEMISTRY METHOD 02/03/2025 1:20 PM [facility] ALT (SGPT) 141(H) 10 - 60 unit/L LAB CHEMISTRY METHOD 02/03/2025 1:20 PM [facility] Alkaline Phosphatase 81 42 - 121 unit/L LAB CHEMISTRY METHOD 02/03/2025 1:20 PM [facility] Total Protein 7.7 6.0 - 8.0 g/dL LAB CHEMISTRY METHOD 02/03/2025 1:20 PM [facility] Albumin 4.1 3.2 - 5.0 g/dL LAB CHEMISTRY METHOD 02/03/2025 1:20 PM [facility] Total Bilirubin 0.7 0.0 - 1.4 mg/dL LAB CHEMISTRY METHOD 02/03/2025 1:20 PM [facility] Blood Venous blood specimen / Unknown Venipuncture / Unknown 02/03/2025 9:28 AM EST 02/03/2025 9:28 AM EST us Rodo AGUILAR LAB BLOOD ORDERABLES Final Res ult [facility] [address] [place] [address], * ECG 12 lead (01/14/2025 11:34 AM EDT) Ventricular Rate ECG 70 BPM GEMUSE Atrial Rate 70 BPM GEMUSE P-R Interval 208 ms GEMUSE QRS Duration 142 ms GEMUSE Q-T Interval 426 ms GEMUSE QTc 460 ms GEMUSE P Wave [place] 38 degrees GEMUSE R [place] 77 degrees GEMUSE T [place] 64 degrees GEMUSE ECG Interpretation Atrial-sensed ventricular-pa dennys rhythm Abnormal ECG When compared with ECG of 18-MAR-2022 13:40, Electronic ventricular pacemaker has replaced Sinus rhythm Vent. rate has increased BY 28 BPM Confirmed by AYLEEN ROBLEDO ([id number]) on 02/12/2025 6:49:23 PM GEMUSE 01/14/2025 11:3 4 AM EDT 02/12/2025 6:49 PM EST us Ayleen Robledo MD ECG ORDERABLES Final Result [email or web address] * Cardiac device check - Remote- MURJ (12/12/2024 5:09 AM EDT) Date Time Interrogation Session [id number] CV DEVICE CHECK Type Interrogation Session Remote CV DEVICE CHECK Implantable Pulse Generator Amusement Centre Manager MDLisandra CV DEVICE CHECK Implantable Pulse Generator Type IPG CV DEVICE CHECK Implantable Pulse Generator Model Dejah XT DR MRI [id number] CV DEVICE CHECK Implantable Pulse Generator Serial Number [id number] CV DEVICE CHECK Implantable Pulse Generator Implant Date 20220401 CV DEVICE CHECK Battery Remaining Longevity 111.0 CV DEVICE CHECK Battery Voltage 3.010 CV D EVICE CHECK Battery CREDIT RISK OFFICER Trigger 2.625 CV DEVICE CHECK Battery Status Middle of Service CV DEVICE CHECK Rogelio Statistic RA Percent Paced 38.52 CV DEVICE CHECK Rogelio Statistic RV Percent Paced 99.99 CV DEVICE CHECK Atrial Tachy Statistic AT/AF Harned Percent 0.00 CV DEVICE CHECK Lead Channel [...] Hepatitis C Screening (08/11/1999) Pathologist [facility] Hepatitis C Screening Abstracted Historical Provider HEALTH MAINTENANCE Final Result from Last 3 Months or Most Recently Relevant to Health Maintenance Insurance Care Teams Director Funds Development Relationship Specialty Start Date End Date Nabil Blanco MD [address] [place] [id number] PCP - General 07/05/99
--- OUTSIDE RECORDS SUMMARY | 2025-02-24 14:59 | XMS_ITS | Encounter Summary ---
Author Organization [facility] [place] [address] Care Team Providers Care Electronic Design Engineer Name Role Phone Nabil Blanco MD Primary Care Provider [phone] Encounter Details Date Type Department Care Team ([facility] st Contact Info) Description 02/03/2025 [facility] [address] [place] [address] Rodo Chandler PA [address] [place] [address] Social History Tobacco Use Types Packs/Day Years [...] your loved ones. For example, child care supervisor or elderly care for an older adult? 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 Not on file Not on file Travel History Travel Start Travel End [place] 01/27/2025 01/30/2025 [place] 01/21/2025 01/24/2025 documented as of this encounter Plan of Treatment Upcoming Encounters Date Type Department Care Team (Late st Contact Info) Description 05/08/2025 2:30 PM EST Ancillary Procedure [facility] - [address] [place] [phone] documented as of this encounter Visit Diagnoses Not on filedocumented in this encounter Additional Health Concerns Assessment Noted Time PHQ-9 Depression Total Score: 0 08/28/19 25 10:16 AM EDT documented as of this encounter Care Teams Electronic Design Engineer Relationship Specialty Start Date End Date Nabil Blanco MD [address] [place] [id number] PCP - General 07/05/99 documented as of this encounter
== END 2025-02-24 11:24 | disposition home or self-care (01) ==
LOC: HO.HMGAL 11:23
PROVIDERS: PCP Pediatrics; Visit Provider Registered Nurse Emergency
DX: J30.89 Other allergic rhinitis (principal)
CPT/HCPCS: 95117; 95165

== ENCOUNTER 2025-03-03 14:40 | Outpatient (AMB) | payer OTHER, SELFPAY ==
--- OUTSIDE RECORDS SUMMARY | 2025-03-03 17:57 | XMS_ITS | Encounter Summary ---
Author Organization [facility] [place] [address] Care Team Providers Care Junior Network Engineer Name Role Phone Nabil Blanco MD Primary Care Provider [phone] Encounter Details Date Type Department Care Team ([facility] st Contact Info) Description 02/03/2025 Results Follow-Up [facility] [address] [place] [address] Rodo Chandler PA [address] [place] [address] Social History Tobacco Use Types Packs/Day Years [...] your loved ones. 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 Not on file Not on file documented as of this encounter Plan of Treatment Upcoming Encounters Date Type Department Care Team ([facility] st Contact Info) Description 05/08/2025 2:30 PM EST Ancillary Procedure [facility] - [address] [facility] [address] [place] [address] documented as of this encounter Visit Diagnoses Not on filedocumented in this encounter Additional Health Concerns Assessment Noted Time PHQ-9 Depression Total Score: 0 08/28/19 25 10:16 AM EDT documented as of this encounter Care Teams Junior Network Engineer Relationship Specialty Start Date End Date Nabil Blanco MD [address] [place] [address] PCP - General 07/05/99 documented as of this encounter
--- OUTSIDE RECORDS SUMMARY | 2025-03-03 17:57 | XMS_ITS | Clinical Summary ---
Author Organization [address] [place] [address] [place] [phone] Phone Care Team Providers Care Wood Mill Supervisor Name Role Phone Nabil Blanco MD Primary Care Provider [phone] Allergies Active Allergy Reactions Criticality Noted Date [...] Active Problems Problem Noted Date Diagnosed Date Other cardiomyopathies (CMS/HCC V24, CMS/HCC V28 ) 03/02/2025 Assessment & Plan (03/02/2025 8:32 PM EST): The patient has been noted to have infrequent episodes of brief NSVT noted on his pacemaker device interrogations. Echocardiogram showed a normal LVEF. Nuclear stress test did not show any evidence of ischemia or infarct. Cardiac nuclear PET scan did not show any evidence of sarcoidosis. The patient continues to make adequate therapy. Last episode of NSVT was in July 2024. Will increase his Toprol to 50 mg orally daily. Will order a cardiac MRI to rule out the presence of an infiltrative cardiomyopathy. Orders: MR Cardiac Morphology and Function wo and w Contrast Seasonal allergies 02/03/2025 Pacemaker 12/23/2024 Class 3 severe obesity due t o excess calories with serious comorbidity and body mass index (BMI) of 40.0 to 44.9 in adult (CMS/HCC V24, CMS/HCC V28) 05/23/2024 VT (ventricular tachycardia) (CMS/HCC V24, [...] as soon as possible. Assessment & Plan (03/02/2025 8:32 PM EST): The patient has been noted to have infrequent episodes of brief NSVT noted on his pacemaker device interrogations. Echocardiogram showed a normal LVEF. Nuclear stress test did not show any evidence of ischemia or infarct. Cardiac nuclear PET scan did not show any evidence of sarcoidosis. The patient continues to make adequate therapy. Last episode of NSVT was in July 2024. Will increase his Toprol to 50 mg orally daily. Will order a cardiac MRI to rule out the presence of an infiltrative cardiomyopathy. Orders: ECG 12 lead MR Cardiac Morphology and Function wo and w Contrast JARED (obstructive sleep apnea) 08/18/2022 Overview (02/19/2024): 08/23 severe S/P placement of cardiac pacemaker 04/28/2022 Overview (01/07/2025): Done at [facility] on 04/01/22 with SR - Indications: [...] for his pacemaker type. Aortic aneurysm, thoracic (CMS/[facility] V24) 03/07/20 Overview (10/22/2024): 04/25 4.1 02/23--4.2 cm 10/25 (cardiology) stable Assessment & Plan (03/02/2025 8:32 PM EST): The patient was found to have a mild dilation of the ascending aorta on her prior echocardiogram. The ascending aorta measured 4.2 cm on echocardiogram done in 2022. Recent echocardiogram done in September 2024 also showed a dilation of the ascending aorta of 4.2 cm. Will continue yearly echocardiographic monitoring. Aortic stenosis 03/07/2022 Overview (02/19/2024): Last Assessment & Plan: The patient was found to have a mild aortic valve stenosis on his echocardiogram done in January 2022. We will continue periodic echocardiographic monitoring. Obesity (BMI 35.0-39.9 without comorbidity) 07/2017 Overview [...] AM EST Clinical Support Adult Medicine - [address] [phone] Nayely Jansen LPN Need for vaccination against Streptococcus pneumoniae 02/03/2025 9:30 AM EST Lab Draw Station - [address] [phone] Screening, anemia, deficiency, iron; Screening, lipid; JARED (obstructive sleep apnea); Class 3 severe obesity due to excess calories with serious comorbidity and body mass index (BMI) of 40.0 to 44.9 in adult (CMS/HCC V24, CMS/HCC V28); Nonspecific elevation of levels of transaminase or lactic acid dehydrogenase (LDH); Screening for prostate cancer 02/03/2025 8:30 AM EST Office Visit [address] [phone] Rodo Chandler PA Adult general medical examination [...] Streptococcus pneumoniae; Seasonal allergies 02/03/2025 Results Follow-Up [address] [phone] Rodo Chandler PA 01/14/2025 11:20 AM EDT Office Visit [facility] [address] [place] [address] Ayleen Robledo MD Aneurysm of ascending aorta without rupture ([facility]/HCC V24) (Primary Dx); VT (ventricular tachycardia) (CMS/HCC V24, CMS/HCC V28); Other cardiomyopathies (CMS/HCC V24, CMS/HCC V28); Nonrheumatic aortic valve stenosis 01/06/2025 Telephone [facility] [address] [place] [address] Ayleen Robledo MD 01/02/2025 11:00 AM EDT Office Visit [address] [phone] Nabil Blanco MD Vertigo (Primary Dx) 12/25/[address] [phone] Alec Marrero RN 12/24/2024 Telephone Adult Medicine - [place] [address] [place] [address] Nabil Blanco MD 12/20/2024 Telephone [facility] [place] [address] [place] [address] Ayleen Robledo MD 12/12/2024 5:10 AM EDT Ancillary Procedure [facility] [address] [place] [address] from Last 3 Months Immunizations Immunization Administration [...] History Surgery Date Site/Laterality Comments COLONOSCOPY 09/07/06, [facility] PROCEDURE: [place] COLONOSCOPY STOMA DX INCLUDING COLLJ SPEC SPX; COMMENT: Normal: repeat in five years COLONOSCOPY 10/12/2014 PROCEDURE: [place] COLONOSCOPY STOMA W/RMVL JAMESON POLYP/OTH LES SNARE; [...] your loved ones. For example, child care nurse or elderly care for an older adult? 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 [employer] Not on file Not on file Not on file Obstetrics History Last Filed Vital Signs Vital [...] Description 05/08/2025 2:30 PM EST Ancillary Procedure [facility] [address] [facility] [address] [place] [address] Health Maintenance Due Date Last [...] this topic Medical Devices Implanted Type Area Trace Evidence Technician Device Identifier Shelf Expiration Date Model / Serial / Lot Medt-Card Dejah Xt Dr Renee [id number] Implanted: (Quantity not on file) Cardiac Pacemaker [employer] - CARDIAC RHYTH-CRDM DEJAH XT DR RENEE [id number] / [id number] / Medt-Card Dejah Xt Dr Renee [id number] Implanted: (Quantity not on file) Cardiac Pacemaker [employer] - CARDIAC RHYTH-CRDM DEJAH XT DR RENEE / [id number] / Procedures Procedure Name Priority Date/Time Associated [...] to 44.9 in adult (CMS/[facility] V24, [facility] V28) Nonspecific elevation of levels of transaminase or lactic acid dehydrogenase (LDH) LIPID PANEL WITH REFLEX TO DIRECT LDL Routine 02/03/2025 9:28 AM EST Screening, lipid CBC AND DIFFERENTIAL Routine 02/03/2025 9:28 AM EST Screening, anemia, deficiency, iron ECG 12-LEAD Routine 01/14/2025 11:34 AM EDT VT (ventricular tachycardia) (CMS/HCC V24, CMS/HCC V28) CARDIAC DEVICE CHECK- REMOTE- MURJ Routine 12/12/2024 5:09 AM EDT COLONOSCOPY Routine 08/08/2023 HEPATITIS C SCREENING Routine 08/11/1999 from Last 3 Months or Most Recently Relevant to Health Maintenance Results * Prostate specific antigen screen (02/03/2025 9:28 AM EST) PSA 0.94 0.00 - 4.00 ng/mL LAB CHEMISTRY METHOD 02/03/2025 2:44 PM EST [facility] Blood Venous blood specimen / Unknown Venipuncture / Unknown 02/03/2025 9:28 AM EST 02/03/2025 9:28 AM EST Narrative [facility] - 02/03/2025 2:44 PM EST The Siemens Advia Centaur Chemiluminescent Immunoassay is used. Results obtained with different assay methods or kits cannot be used interchangeably. Results cannot be interpreted as absolute evidence of the presence or absence of malignant disease. Rodo AGUILAR LAB BLOOD ORDERABLES Final Res ult [facility] [address] [place] [address], * Lipid panel with reflex to direct LDL (02/03/2025 9:28 AM EST) Cholesterol 151 0 - 200 mg/dL LAB CHEMISTRY METHOD 02/03/2025 1:20 PM EST [facility] Triglycerides 93 0 - 150 mg/dL LAB CHEMISTRY METHOD 02/03/2025 1:20 PM EST [facility] HDL 56 >=40 mg/dL LAB CHEMISTRY METHOD 02/03/2025 1:20 PM EST [facility] LDL Calculated 76 0 - 100 mg/dL LAB CHEMISTRY METHOD 02/03/2025 1:20 PM [facility] Comment:Estimated LDL Calcul ated using equation: Total cholesterol - HDL cholesterol - (Triglycerides/5) VLDL Cholesterol Santiago 18.6 mg/dL LAB CHEMISTRY METHOD 02/03/2025 1:20 PM [facility] Non HDL Chol. (LDL+VLDL) 95 <145 mg/dL LAB CHEMISTRY METHOD 02/03/2025 1:20 PM [facility] Chol/HDL Ratio 2.7 0.0 - 4.4 LAB CHEMISTRY METHOD 02/03/2025 1:20 PM [facility] Blood Venous blood specimen / Unknown Venipuncture / Unknown 02/03/2025 9:28 AM EST 02/03/2025 9:28 AM EST Rodo AGUILAR LAB BLOOD ORDERABLES Final Res ult [facility] [address] [place] [address], * CBC auto differential (02/03/2025 9:28 AM EST) WBC 6.2 4.8 - 10.8 K/mcL LAB HEMETOLOGY METHOD 02/03/2025 1:31 PM [facility] RBC 5.50 4.50 - 5.50 M/mcL LAB HEMETOLOGY METHOD 02/03/2025 1:31 PM [facility] Hemoglobin 15.8 13.5 - 17.5 g/dL LAB HEMETOLOGY METHOD 02/03/2025 1:31 PM [facility] Hematocrit 48.7 42.0 - 54.0 % LAB HEMETOLOGY METHOD 02/03/2025 1:31 PM [facility] MCV 88.1 79.0 - 98.0 FL LAB HEMETOLOGY METHOD 02/03/2025 1:31 PM [facility] MCH 28.6 27.0 - 32.0 pcg LAB HEMETOLOGY METHOD 02/03/2025 1:31 PM [facility] MCHC 32.4 32.0 - 37.0 g/dL LAB HEMETOLOGY METHOD 02/03/2025 1:31 PM [facility] RDW 13.2 11.0 - 15.0 % LAB HEMETOLOGY METHOD 02/03/2025 1:31 PM [facility] Platelets 201 130 - 400 K/mcL LAB HEMETOLOGY METHOD 02/03/2025 1:31 PM [facility] MPV 10.2 7.0 - 11.0 FL LAB HEMETOLOGY METHOD 02/03/2025 1:31 PM [facility] NRBC 0.0 <1.0 % LAB HEMETOLOGY METHOD 02/03/2025 1:31 PM [facility] NRBC Absolute 0.00 <0.10 K/mcL LAB HEMETOLOGY METHOD 02/03/2025 1:31 PM [facility] Neutrophils Relative 49.6 % LAB HEMETOLOGY METHOD 02/03/2025 1:31 PM [facility] Lymphocytes Relative 37.6 % LAB HEMETOLOGY METHOD 02/03/2025 1:31 PM [facility] Monocytes Relative 9.9 % LAB HEMETOLOGY METHOD 02/03/2025 1:31 PM [facility] Eosinophils Relative 1.5 % LAB HEMETOLOGY METHOD 02/03/2025 1:31 PM [facility] Basophils Relative 1.1 % LAB HEMETOLOGY METHOD 02/03/2025 1:31 PM [facility] Immature Granulocytes Relative 0.3 % LAB HEMETOLOGY METHOD 02/03/2025 1:31 PM [facility] Neutrophils Absolute 3.07 1.50 - 7.00 K/mcL LAB HEMETOLOGY METHOD 02/03/2025 1:31 PM EST [facility] Lymphocytes Absolute 2.33 1.00 - 5.00 K/[facility] LAB HEMETOLOGY METHOD 02/03/2025 1:31 PM [facility] Monocytes Absolute 0.61 0.20 - 1.00 K/mcL LAB HEMETOLOGY METHOD 02/03/2025 1:31 PM EST [facility] Eosinophils Absolute 0.09 0.00 - 0.50 K/[facility] HEMETOLOGY METHOD 02/03/2025 1:31 PM [facility] Basophils Absolute 0.07 0.00 - 0.20 K/[facility] HEMETOLOGY METHOD 02/03/2025 1:31 PM [facility] Immature Granulocytes Absolute 0.02 0.00 - 0.03 K/[facility] LAB HEMETOLOGY METHOD 02/03/2025 1:31 PM EST [facility] Blood Venous blood specimen / Unknown Venipuncture / Unknown 02/03/2025 9:28 AM EST 02/03/2025 9:28 AM EST us Rodo AGUILAR LAB BLOOD ORDERABLES Final Res ult [facility] [address] [place] [address], * (ABNORMAL) Comprehensive metabolic panel (02/03/2025 9:28 AM EST) Sodium 138 133 - 145 mmol/L LAB CHEMISTRY METHOD 02/03/2025 1:20 PM EST [facility] Potassium 4.7 3.5 - 5.5 mmol/L LAB CHEMISTRY METHOD 02/03/2025 1:20 PM [facility] Chloride 104 96 - 110 mmol/L LAB CHEMISTRY METHOD 02/03/2025 1:20 PM EST [facility] CO2 30 21 - 32 mmol/L LAB CHEMISTRY METHOD 02/03/2025 1:20 PM [facility] Anion Gap 4 3 - 11 LAB CHEMISTRY METHOD 02/03/2025 1:20 PM [facility] Glucose 137(H) 70 - 100 mg/dL LAB CHEMISTRY METHOD 02/03/2025 1:20 PM [facility] BUN 12 5 - 25 mg/dL LAB CHEMISTRY METHOD 02/03/2025 1:20 PM [facility] Creatinine 1.17 0.70 - 1.30 mg/dL LAB CHEMISTRY METHOD 02/03/2025 1:20 PM [facility] eGFR 72 >=60 mL/min/1. 73m2 LAB CHEMISTRY METHOD 02/03/2025 1:20 PM [facility] Comment:Calculation based on the Chronic Kidney Disease Epidemiology Collaboration (CKD-EPI) equation refit without adjustment for race. BUN/Creatinine Ratio 10.3 LAB CHEMISTRY METHOD 02/03/2025 1:20 PM [facility] Calcium 8.8 8.5 - 10.5 mg/dL LAB CHEMISTRY METHOD 02/03/2025 1:20 PM [facility] AST (SGOT) 82(H) 10 - 42 unit/L LAB CHEMISTRY METHOD 02/03/2025 1:20 PM [facility] ALT (SGPT) 141(H) 10 - 60 unit/L LAB CHEMISTRY METHOD 02/03/2025 1:20 PM [facility] Alkaline Phosphatase 81 42 - 121 unit/L LAB CHEMISTRY METHOD 02/03/2025 1:20 PM [facility] Total Protein 7.7 6.0 - 8.0 g/dL LAB CHEMISTRY METHOD 02/03/2025 1:20 PM [facility] Albumin 4.1 3.2 - 5.0 g/dL LAB CHEMISTRY METHOD 02/03/2025 1:20 PM [facility] Total Bilirubin 0.7 0.0 - 1.4 mg/dL LAB CHEMISTRY METHOD 02/03/2025 1:20 PM EST [facility] Blood Venous blood specimen / Unknown Venipuncture / Unknown 02/03/2025 9:28 AM EST 02/03/2025 9:28 AM EST Rodo AGUILAR LAB BLOOD ORDERABLES Final Res ult Performing Organization Address City/[facility]/ZIP Co de Phone Number [facility]) [facility] [address] [place] [address], [place] [phone] * ECG 12 lead (01/14/2025 11:34 AM EDT) Ventricular Rate ECG 70 BPM GEMUSE Atrial Rate 70 BPM GEMUSE P-R Interval 208 ms GEMUSE QRS Duration 142 ms GEMUSE Q-T Interval 426 ms GEMUSE QTc 460 ms GEMUSE P Wave [place] 38 degrees GEMUSE R [place] 77 degrees GEMUSE T [place] 64 degrees GEMUSE ECG Interpretation Atrial-sensed ventricular-pa dennys rhythm Abnormal ECG When compared with ECG of 18-MAR-2022 13:40, Electronic ventricular pacemaker has replaced Sinus rhythm Vent. rate has increased BY 28 BPM Confirmed by AYLEEN ROBLEDO ([id number]) on 02/12/2025 6:49:23 PM GEMUSE 01/14/2025 11:3 4 AM EDT 02/12/2025 6:49 PM EST Ayleen Robledo MD ECG ORDERABLES Final Result Performing Organization Address City/[facility]/ZIP Co de Phone Number GEMUSE * Cardiac device check - Remote- MURJ (12/12/2024 5:09 AM EDT) Date Time Interrogation Session [id number] CV DEVICE CHECK Type Interrogation Session Remote CV DEVICE CHECK Implantable Pulse Generator Trace Evidence Technician MDLisandra CV DEVICE CHECK Implantable Pulse Generator Type IPG CV DEVICE CHECK Implantable Pulse Generator Model Dejah XT DR RENEE [id number] CV DEVICE CHECK Implantable Pulse Generator Serial Number [id number] CV DEVICE CHECK Implantable Pulse Generator Implant Date 20220401 CV DEVICE CHECK Battery Remaining Longevity 111.0 CV DEVICE CHECK Battery Voltage 3.010 CV D EVICE CHECK Battery MANAGER TRAVEL Trigger 2.625 CV DEVICE CHECK Battery Status Middle of Service CV DEVICE CHECK Rogelio Statistic RA Percent Paced 38.52 CV DEVICE CHECK Rogelio Statistic RV Percent Paced 99.99 CV DEVICE CHECK Atrial Tachy Statistic AT/AF [place] Percent 0.00 CV DEVICE CHECK Lead Channel [...] no interpretation Anatomical Region Laterality Modality Other Result [facility] Historical Provider HEALTH MAINTENANCE Final Result * Hepatitis C Screening (08/11/1999) Hepatitis C Screening Abstracted Result [facility] Historical Provider HEALTH MAINTENANCE Final Result from Last 3 Months or Most Recently Relevant to Health Maintenance Insurance Care Teams [employer] Supervisor Relationship Specialty Start Date End Date Nabil Blanco MD [address] [place] [id number] PCP - General 07/05/99
== END 2025-03-03 14:41 | disposition home or self-care (01) ==
LOC: HO.HMGAL 14:40
PROVIDERS: PCP Pediatrics; Visit Provider Registered Nurse Emergency
DX: J30.89 Other allergic rhinitis (principal)
CPT/HCPCS: 95117; 95165

== ENCOUNTER 2025-03-17 15:11 | Outpatient (AMB) | payer OTHER, SELFPAY ==
--- OUTSIDE RECORDS SUMMARY | 2025-03-17 21:44 | XMS_ITS | Clinical Summary ---
Author Organization [address] [place] [address] [place] [phone] Phone Care Team Providers Care Vamper Name Role Phone Nabil Blanco MD Primary Care Provider [phone] Allergies Active Allergy Reactions Criticality Noted Date Comments Ragweed 06/08/2006 Medications multivit-min/claudine antonia fumarate (MULTI VITAMIN ORAL) Take 1 Tablet [...] each day. Active tirzepatide, weight loss, (Zepbound) 5 mg/0.5 mL injectionIndicat ions:JARED (obstructive sleep apnea),Class 3 severe obesity due to excess calories with serious comorbidity and body mass index (BMI) of 40.0 to 44.9 in adult (CMS/HCC V24, CMS/HCC V28) Inject 0.5 mL (5 mg total) under the skin every 7 (seven) days. 2 mL 5 Active tirzepatide, weight loss, (Zepbound) 2.5 mg/0.5 mL injectionIndicat ions:JARED (obstructive sleep apnea) Inject 0.5 mL (2.5 mg total) under the skin every 7 (seven) days. 2 mL 5 03/05/20 25 Active Problems Problem Noted Date Diagnosed Date Other cardiomyopathies 03/02/2025 Assessment & Plan (03/02/2025 8:32 PM [...] (BMI) of 40.0 to 44.9 in adult 05/23/2024 VT (ventricular tachycardia) 05/09/2023 Overview (02/19/2024): Last Assessment & Plan: [...] been attempting to contact sleep medicine of [facility] multiple times and unable to reach someone to assist him to arrange CPAP and titration study. He will reach out to sleep medicine services of [facility] to ensure the patient can obtain [...] cardiac pacemaker 04/28/2022 Overview (01/07/2025): Done at [facility] on 04/01/22 with SR - Indications: Mobitz [...] for his pacemaker type. Aortic aneurysm, thoracic 03/07/2022 Overview (10/22/2024): 04/25 4.1 02/23--4.2 cm 10/25 [...] Encounters Date Type Department Care Team Description 03/06/2025 11:00 AM EST Ancillary Procedure [facility] - [address] [place] [phone] 03/06/2025 Telephone [facility] [address] [facility] [address] [place] [address] Ayleen Robledo MD 02/07/2025 10:30 AM EST Clinical Support [address] [phone] Nayely Jansen LPN Need for vaccination against Streptococcus pneumoniae 02/03/2025 9:30 AM EST Lab Draw Station [address] Screening, anemia, deficiency, iron; Screening, lipid; JARED (obstructive sleep apnea); Class 3 severe obesity due to excess calories with serious comorbidity and body mass index (BMI) of 40.0 to 44.9 in adult (CMS/HCC V24, CMS/HCC V28); Nonspecific elevation of levels of transaminase or lactic acid dehydrogenase (LDH); Screening for prostate cancer 02/03/2025 8:30 AM EST Office Visit [address] [phone] Rodo Chandler PA Adult general medical examination [...] Streptococcus pneumoniae; Seasonal allergies 02/03/2025 Results Follow-Up [address] [phone] Rodo Chandler PA 01/14/2025 11:20 AM EDT Office Visit [facility] [address] [place] [phone] Ayleen Robledo MD Aneurysm of ascending aorta without rupture (CMS/HCC V24) (Primary Dx); VT (ventricular tachycardia) (CMS/HCC V24, CMS/HCC V28); Other cardiomyopathies (CMS/HCC V24, CMS/[facility] V28); Nonrheumatic aortic valve stenosis 01/06/2025 Telephone [facility] [address] [place] [address] Ayleen Robledo MD 01/02/2025 11:00 AM EDT Office Visit Adult Medicine [facility] [address] [place] [phone] Nabil Blanco MD Vertigo (Primary Dx) 12/25/2024 Telephone Adult Medicine [facility] [address] [place] [address] Alec Marrero RN 12/24/2024 Telephone Adult [facility] [address] [place] [phone] Nabil Blanco MD 12/20/2024 Telephone [facility] [address] [place] [address] Ayleen Robledo MD from Last 3 Months Immunizations Immunization Administration [...] History Surgery Date Site/Laterality Comments COLONOSCOPY 09/07/06, [facility] PROCEDURE: CT COLONOSCOPY STOMA DX [...] for your loved ones. For example, children's minister or elderly care for an older adult? 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[employer] Not on file Not on file Not on file Last Filed Vital Signs Vital Sign Reading [...] Description 05/08/2025 2:30 PM EST Ancillary Procedure [facility] - [facility] [address] [facility] [address] [place] [address] Health Maintenance Due Date Last [...] this topic Medical Devices Implanted Type Area Blasting Machine Operator Device Identifier Shelf Expiration Date Model / Serial / Lot Medt-Card Eliza Xt Dr Renee [id number] Implanted: (Quantity not on file) Cardiac Pacemaker [employer] - CARDIAC RHYTH-CRDM DEJAH XT DR RENEE [id number] / [id number] / Medt-Card Dejah Xt Dr Renee [id number] Implanted: (Quantity not on file) Cardiac Pacemaker [employer] - CARDIAC RHYTH-CRDM DEJAH XT DR RENEE / [id number] / Procedures Procedure Name Priority Date/Time Associated Diagnosis Comments CARDIAC DEVICE CHECK- REMOTE- MURJ Routine 03/06/2025 10:58 AM EST CBC WITH AUTO DIFFERENTIAL Routine 02/03/2025 9:28 [...] VT (ventricular tachycardia) (CMS/HCC V24, CMS/HCC V28) HM COLONOSCOPY Routine 08/08/2023 HM HEPATITIS C SCREENING Routine 08/11/1999 from Last 3 Months or Most Recently Relevant to Health Maintenance Results * Cardiac device check - Remote- MURJ (03/06/2025 10:58 AM EST) Date Time Interrogation Session [id number] CV DEVICE CHECK Type Interrogation Session Remote CV DEVICE CHECK Implantable Pulse Generator Blasting Machine Operator MDT CV DEVICE CHECK Implantable Pulse Generator Type IPG CV DEVICE CHECK Implantable Pulse Generator Model Dejah XT DR RENEE [id number] CV DEVICE CHECK Implantable Pulse Generator Serial Number [id number] CV DEVICE CHECK Implantable Pulse Generator Implant Date 20220401 CV DEVICE CHECK Battery Remaining Longevity 109.0 CV DEVICE CHECK Battery Voltage 3.000 CV D EVICE CHECK Battery FUEL HOUSE ATTENDANT Trigger 2.625 CV DEVICE CHECK Battery Status Middle of Service CV DEVICE CHECK Rogelio Statistic RA Percent Paced 38.10 CV DEVICE CHECK Rogelio Statistic RV Percent Paced 99.99 CV DEVICE CHECK Atrial Tachy Statistic AT/AF Denbo Percent 0.00 CV DEVICE CHECK Lead Channel Sensing Intrinsic Amplitude 2.625 CV DEVICE CHECK Lead Channel Setting Sensing Sensitivity 0.45 CV DEVICE CHECK Lead Channel Impedance Value 399 CV DEVICE CHECK Lead Channel Pacing Threshold Amplitude 0.625 CV DEVICE CHECK Lead Channel Pacing Threshold Pulse Width 0.4 CV DEVICE CHECK Lead Channel RA Pacing Threshold Date 2025-03-02 CV DEVICE CHECK Lead Channel Setting Pacing [...] CHECK Lead Channel RV Pacing Threshold Date 2025-03-02 CV DEVICE CHECK Lead Channel Setting Pacing [...] 6 CV DEVICE CHECK Date of Service 2025-05-10 CV DEVICE CHECK Anatomical Region Laterality Modality Device Interroga tion 03/02/2025 10:2 0 PM EST Impressions 03/06/2025 10:55 AM EST Normal Remote: No Events Monthly for VT * Normal Device Function * Alerts or events: None * Battery: OK, 9.17 yrs * Sensing, impedance and thresholds reviewed * Programmed parameters reviewed * Presenting rhythm reviewed * Heart Rate Histograms reviewed * No significant changes noted Normal Remote: With Events * Normal Device Function * Events or Alerts: 1 * VT 10 beats * Battery: OK, 9.08 yrs * Sensing, impedance and thresholds reviewed * Programmed parameters reviewed * Presenting rhythm reviewed * Heart Rate Histograms reviewed Narrative Procedure Note Ronna Bridges NP - 03/06/2025 IMPRESSION: Normal Remote: No Events Monthly for VT * Normal Device Function * Alerts or events: None * Battery: OK, 9.17 yrs * Sensing, impedance and thresholds reviewed * Programmed parameters reviewed * Presenting rhythm reviewed * Heart Rate Histograms reviewed * No significant changes noted Normal Remote: With Events * Normal Device Function * Events or Alerts: 1 * VT 10 beats * Battery: OK, 9.08 yrs * Sensing, impedance and thresholds reviewed * Programmed parameters reviewed * Presenting rhythm reviewed * Heart Rate Histograms reviewed Ronna Bridges NP CV IMPLANTABLE CARDIAC DEVIC E PROCEDURES Final Result * Prostate specific antigen screen (02/03/2025 9:28 AM EST) PSA 0.94 0.00 - 4.00 ng/mL LAB CHEMISTRY METHOD 02/03/2025 2:44 PM EST [facility] Blood Venous blood specimen / Unknown Venipuncture / Unknown 02/03/2025 9:28 AM EST 02/03/2025 9:28 AM EST Narrative [facility] - 02/03/2025 2:44 PM EST The Siemens Advia EnzymeRxaur Chemiluminescent Immunoassay is used. Results obtained with different assay methods or kits cannot be used interchangeably. Results cannot be interpreted as absolute evidence of the presence or absence of malignant disease. Rodo AGUILAR LAB BLOOD ORDERABLES Final Res ult [facility] [address] [place] [address], [place] [phone] * Lipid panel with reflex to direct LDL (02/03/2025 9:28 AM EST) Cholesterol 151 0 - 200 mg/dL LAB CHEMISTRY METHOD 02/03/2025 1:20 PM [facility] Triglycerides 93 0 - 150 mg/dL LAB CHEMISTRY METHOD 02/03/2025 1:20 PM [facility] HDL 56 >=40 mg/dL LAB CHEMISTRY METHOD 02/03/2025 1:20 PM [facility] LDL Calculated 76 0 - 100 mg/dL LAB CHEMISTRY METHOD 02/03/2025 1:20 PM [facility] Comment:Estimated LDL Calcul ated using equation: Total cholesterol - HDL cholesterol - (Triglycerides/5) VLDL Cholesterol Santiago 18.6 mg/dL LAB CHEMISTRY METHOD 02/03/2025 1:20 PM [facility] Non HDL Chol. (LDL+VLDL) 95 <145 mg/dL LAB CHEMISTRY METHOD 02/03/2025 1:20 PM [facility] Chol/HDL Ratio 2.7 0.0 - 4.4 LAB CHEMISTRY METHOD 02/03/2025 1:20 PM [facility] Blood Venous blood specimen / Unknown Venipuncture / Unknown 02/03/2025 9:28 AM EST 02/03/2025 9:28 AM EST us Rodo AGUILAR LAB BLOOD ORDERABLES Final Res ult [facility] [address] [place] [address], [place] [phone] * CBC auto differential (02/03/2025 9:28 AM EST) WBC 6.2 4.8 - 10.8 K/mcL LAB HEMETOLOGY METHOD 02/03/2025 1:31 PM [facility] RBC 5.50 4.50 - 5.50 M/mcL LAB HEMETOLOGY METHOD 02/03/2025 1:31 PM [facility] Hemoglobin 15.8 13.5 - 17.5 g/dL LAB HEMETOLOGY METHOD 02/03/2025 1:31 PM [facility] Hematocrit 48.7 42.0 - 54.0 % LAB HEMETOLOGY METHOD 02/03/2025 1:31 PM [facility] MCV 88.1 79.0 - 98.0 FL LAB HEMETOLOGY METHOD 02/03/2025 1:31 PM [facility] MCH 28.6 27.0 - 32.0 pcg LAB HEMETOLOGY METHOD 02/03/2025 1:31 PM [facility] MCHC 32.4 32.0 - 37.0 g/dL LAB HEMETOLOGY METHOD 02/03/2025 1:31 PM [facility] RDW 13.2 11.0 - 15.0 % LAB HEMETOLOGY METHOD 02/03/2025 1:31 PM [facility] Platelets 201 130 - 400 K/mcL LAB HEMETOLOGY METHOD 02/03/2025 1:31 PM [facility] MPV 10.2 7.0 - 11.0 FL LAB HEMETOLOGY METHOD 02/03/2025 1:31 PM [facility] NRBC 0.0 <1.0 % LAB HEMETOLOGY METHOD 02/03/2025 1:31 PM [facility] NRBC Absolute 0.00 <0.10 K/mcL LAB HEMETOLOGY METHOD 02/03/2025 1:31 PM [facility] Neutrophils Relative 49.6 % LAB HEMETOLOGY METHOD 02/03/2025 1:31 PM [facility] Lymphocytes Relative 37.6 % LAB HEMETOLOGY METHOD 02/03/2025 1:31 PM [facility] Monocytes Relative 9.9 % LAB HEMETOLOGY METHOD 02/03/2025 1:31 PM [facility] Eosinophils Relative 1.5 % LAB HEMETOLOGY METHOD 02/03/2025 1:31 PM [facility] Basophils Relative 1.1 % LAB HEMETOLOGY METHOD 02/03/2025 1:31 PM [facility] Immature Granulocytes Relative 0.3 % LAB HEMETOLOGY METHOD 02/03/2025 1:31 PM [facility] Neutrophils Absolute 3.07 1.50 - 7.00 K/mcL LAB HEMETOLOGY METHOD 02/03/2025 1:31 PM [facility] Lymphocytes Absolute 2.33 1.00 - 5.00 K/mcL LAB HEMETOLOGY METHOD 02/03/2025 1:31 PM EST [facility] Monocytes Absolute 0.61 0.20 - 1.00 K/[facility] LAB HEMETOLOGY METHOD 02/03/2025 1:31 PM EST [facility] Eosinophils Absolute 0.09 0.00 - 0.50 K[facility] LAB HEMETOLOGY METHOD 02/03/2025 1:31 PM EST [facility] Basophils Absolute 0.07 0.00 - 0.20 K/[facility] HEMETOLOGY METHOD 02/03/2025 1:31 PM EST [facility] Immature Granulocytes Absolute 0.02 0.00 - 0.03 K/[facility] HEMETOLOGY METHOD 02/03/2025 1:31 PM EST [facility] Blood Venous blood specimen / Unknown Venipuncture / Unknown 02/03/2025 9:28 AM EST 02/03/2025 9:28 AM EST us Rodo AGUILAR LAB BLOOD ORDERABLES Final Res ult [facility] [address] [place] [address], * (ABNORMAL) Comprehensive metabolic panel (02/03/2025 9:28 AM EST) Sodium 138 133 - 145 mmol/L LAB CHEMISTRY METHOD 02/03/2025 1:20 PM EST [facility] Potassium 4.7 3.5 - 5.5 mmol/L LAB CHEMISTRY METHOD 02/03/2025 1:20 PM [facility] Chloride 104 96 - 110 mmol/L LAB CHEMISTRY METHOD 02/03/2025 1:20 PM [facility] CO2 30 21 - 32 mmol/L LAB CHEMISTRY METHOD 02/03/2025 1:20 PM EST [facility] Anion Gap 4 3 - 11 LAB CHEMISTRY METHOD 02/03/2025 1:20 PM [facility] Glucose 137(H) 70 - 100 mg/dL LAB CHEMISTRY METHOD 02/03/2025 1:20 PM [facility] BUN 12 5 - 25 mg/dL LAB CHEMISTRY METHOD 02/03/2025 1:20 PM [facility] Creatinine 1.17 0.70 - 1.30 mg/dL LAB CHEMISTRY METHOD 02/03/2025 1:20 PM [facility] eGFR 72 >=60 mL/min/1. 73m2 LAB CHEMISTRY METHOD 02/03/2025 1:20 PM [facility] Comment:Calculation based on the Chronic Kidney Disease Epidemiology Collaboration (CKD-EPI) equation refit without adjustment for race. BUN/Creatinine Ratio 10.3 LAB CHEMISTRY METHOD 02/03/2025 1:20 PM [facility] Calcium 8.8 8.5 - 10.5 mg/dL LAB CHEMISTRY METHOD 02/03/2025 1:20 PM [facility] AST (SGOT) 82(H) 10 - 42 unit/L LAB CHEMISTRY METHOD 02/03/2025 1:20 PM [facility] ALT (SGPT) 141(H) 10 - 60 unit/L LAB CHEMISTRY METHOD 02/03/2025 1:20 PM [facility] Alkaline Phosphatase 81 42 - 121 unit/L LAB CHEMISTRY METHOD 02/03/2025 1:20 PM [facility] Total Protein 7.7 6.0 - 8.0 g/dL LAB CHEMISTRY METHOD 02/03/2025 1:20 PM [facility] Albumin 4.1 3.2 - 5.0 g/dL LAB CHEMISTRY METHOD 02/03/2025 1:20 PM [facility] Total Bilirubin 0.7 0.0 - 1.4 mg/dL LAB CHEMISTRY METHOD 02/03/2025 1:20 PM [facility] Blood Venous blood specimen / Unknown Venipuncture / Unknown 02/03/2025 9:28 AM EST 02/03/2025 9:28 AM EST Rodo AGUILAR LAB BLOOD ORDERABLES Final Res ult [facility] [address] [place] [address], * ECG 12 lead (01/14/2025 11:34 AM EDT) [facility] Ventricular Rate ECG 70 BPM GEMUSE Atrial Rate 70 BPM GEMUSE P-R Interval 208 ms GEMUSE QRS Duration 142 ms GEMUSE Q-T Interval 426 ms GEMUSE QTc 460 ms GEMUSE P Wave [place] 38 degrees GEMUSE R [place] 77 degrees GEMUSE T [place] 64 degrees GEMUSE ECG Interpretation Atrial-sensed ventricular-pa dennys rhythm Abnormal ECG When compared with ECG of 18-MAR-2022 13:40, Electronic ventricular pacemaker has replaced Sinus rhythm Vent. rate has increased BY 28 BPM Confirmed by AYLEEN ROBLEDO ([id number]) on 02/12/2025 6:49:23 PM GEMUSE 01/14/2025 11:3 4 AM EDT 02/12/2025 6:49 PM EST Ayleen Robledo MD ECG ORDERABLES Final Result GEMUSE * Colonoscopy (08/08/2023) Pathologist [facility] Colonoscopy Abstracted, no interpretation Anatomical Region Laterality Modality Other Historical Provider HEALTH MAINTENANCE Final Result * Hepatitis C Screening (08/11/1999) [facility] Hepatitis C Screening Abstracted Historical Provider HEALTH MAINTENANCE Final Result from Last 3 Months or Most Recently Relevant to Health Maintenance Insurance Care Teams Vamper Relationship Specialty Start Date End Date Nabil Blanco MD [facility] [place] [address] PCP - General 07/05/99
--- OUTSIDE RECORDS SUMMARY | 2025-03-17 21:44 | XMS_ITS | Encounter Summary ---
Author Organization [facility] [place] [address] Care Team Providers Care Cattle Trader Name Role Phone Nabil Blanco MD Primary Care Provider [phone] Encounter Details Date Type Department Care Team ([facility] st Contact Info) Description 02/03/2025 Results Follow-Up Adult [facility] [address] [place] [address] Rodo Chandler PA [address] [place] [address] Social History Tobacco Use Types Packs/Day Years [...] your loved ones. 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[employer] Not on file Not on file Not on file documented as of this encounter Plan of Treatment Upcoming Encounters Date Type Department Care Team ([facility] st Contact Info) Description 05/08/2025 2:30 PM EST Ancillary Procedure [facility] - [address] [facility] [address] [place] [address] documented as of this encounter Visit Diagnoses Not on filedocumented in this encounter Additional Health Concerns Assessment Noted Time PHQ-9 Depression Total Score: 0 08/28/19 25 10:16 AM EDT documented as of this encounter Care Teams Cattle Trader Relationship Specialty Start Date End Date Nabil Blanco MD [address] [place] [address] PCP - General 07/05/99 documented as of this encounter
== END 2025-03-17 15:12 | disposition home or self-care (01) ==
LOC: HO.HMGAL 15:11
PROVIDERS: PCP Pediatrics; Visit Provider Registered Nurse Emergency
DX: J30.89 Other allergic rhinitis (principal)
CPT/HCPCS: 95117; 95165